=== PATIENT | male | born 1950 | race Caucasian/White ===

== ENCOUNTER 2017-10-27 14:00 | Inpatient (IN) | payer MEDICARE, OTHER, SELFPAY ==
[2017-10-27 15:26] VITALS: BMI 38.5
[2017-10-27 15:59] VITALS: BP 123/54; PULSE 53; RESP 18; TEMP 36.6; O2SAT 78
[2017-10-27 16:00] VITALS: O2SAT 95
[2017-10-27 16:17] LABS: Adenovirus,PCR Not Detected (NotDetected); Bordetella Pertussis Not Detected (NotDetected); Chlamydophila Pneumoniae, PCR Not Detected (NotDetected); Coronavirus 229E Not Detected (NotDetected); Coronavirus NL63 Not Detected (NotDetected); Coronavirus OC43 Not Detected (NotDetected); Coronovirus HKU1,PCR Not Detected (NotDetected); Human Metapneumovirus Not Detected (NotDetected); Influenza A, PCR Not Detected (NotDetected); Influenza AH1, 2009 Not Detected (NotDetected); Influenza AH1, PCR Not Detected (NotDetected); Influenza AH3,PCR Not Detected (NotDetected); Influenza B, PCR Not Detected (NotDetected); Mycoplasma Pneumoniae, PCR Not Detected (NotDected); Parainfluenza 1, PCR Not Detected (NotDetected); Parainfluenza 2, PCR Not Detected (NotDetected); Parainfluenza 3, PCR Not Detected (NotDetected); Parainfluenza 4, PCR Not Detected (NotDetected); Respiratory Syncytial Virus Not Detected (NotDetected); Rhinovirus/Enterovirus Not Detected (NotDetected)
--- NOTE | 2017-10-27 16:34 | HMH.HP ---
*Admission Date: 10/27/17 *Chief complaint: Shortness of breath *History of present illness: 67-year-old male with history of coronary artery disease, diabetes, hypertension, hyperlipidemia, COPD presented to to my office today with 4 days of shortness of breath with cough. Patient had actually been seen at an outside urgent treatment clinic 48 hours prior and diagnosed with right-sided pneumonia and started on Levaquin. Patient tells me that at that time he had oxygen saturations in the mid 70s. He denies fevers or chills. He was noted to have gained about 9 pounds since his last visit 1 month ago. His cough is productive of small amounts of yellow sputum. He admits he did not really feel ill just short of breath. He denies significant orthopnea or swelling in the extremities. Due to patient's persistent hypoxia, as in the office he was satting in the 70s, patient was admitted for IV antibiotics and oxygen support. Patient does normally use oxygen at night as he is unable to tolerate CPAP for sleep apnea. He does not use oxygen during the day [facility] History Medical History: Reports:: Chronic Obstructive Pulmonary Disease (COPD), Coronary Artery Disease, Diabetes Mellitus Type 2, Hyperlipidemia, Hypertension, Myocardial Infarction Denies:: Cancer, Diabetes Mellitus Type 1, MRSA Other Medical History: Reports: Arthritis Other Surgeries: Yes: ColonoscopyComment Only: Other (back surgery x 4) Amputation: No Fractures: No - *Social History Educational Level: Completed High School Smoking Status: Former smoker Tobacco Type: cigarettes Alcohol Intake: never Occupational Status: retired Housing: house Household Members: spouse - Psychiatric History Expresses thoughts of harming self/others: None Suicide Plan Description: No Plan *Family Hx:: Coronary Artery Disease, Diabetes, Heart Attack, Hyperlipidemia, Hypertension, Stroke Review of Systems - Review of Systems Review of systems:: pertinent systems reviewed and negative unless documented below See HPI - Constitutional Reports weight gain - *Cardiovascular Reports shortness of breath, Denies chest pain, Denies chest pain at rest, Denies chest pain with activity, Denies excessive sweating, Denies irregular heart rhythm, Denies leg swelling - *Respiratory Reports change in phlegm color, Reports cough, Reports shortness of breath, Reports shortness of breath with activity Meds Home Medications Medication Instructions Recorded Confirmed Type Aspirin [Adult Low Dose Aspirin EC] 81 mg PO DAILY 10/27/17 10/27/17 History Carvedilol [Carvedilol 25mg Tab] 25 mg PO DAILY 10/27/17 10/27/17 History Digoxin [Digitek] 125 mcg PO DAILY 10/27/17 10/27/17 History Glimepiride 4 mg PO BID 10/27/17 10/27/17 History Isosorbide Mononitrate [Imdur 30mg 30 mg PO DAILY 10/27/17 10/27/17 History ER tablet] Lisinopril [Lisinopril 20mg Tab] 20 mg PO DAILY 10/27/17 10/27/17 History Potassium Chloride [Klor-Con 10mEq 10 meq PO DAILY 10/27/17 10/27/17 History tab] Rosuvastatin Calcium 10 mg PO DAILY 10/27/17 10/27/17 History Salmeterol Xinafoate [Serevent 50 mcg IH BID 10/27/17 10/27/17 History Diskus] Sitagliptin Phosphate [Januvia 50 mg PO DAILY 10/27/17 10/27/17 History 50mg Tablet] Allergies Allergy/AdvReac Type Severity Reaction Status Date / Time No Known Allergies Allergy Verified 10/27/17 15:27 Exam Vital signs and Labs for Last 24 Hours: Temp Pulse Resp BP Pulse Ox 97.9 F 53 L 18 123/54 95 10/27/17 15:59 10/27/17 15:59 10/27/17 15:59 10/27/17 15:59 10/27/17 16:00 Narrative: Patient does not appear to be in any respiratory distress and appears comfortable. HEENT exam reveals normal tympanic membranes and a moist oropharynx. Neck is without lymphadenopathy. Lungs have rales in the right posterior and right anterior midlung. Heart has a regular rate and rhythm. Abdomen is soft, nontender, nondistended. Bowel sounds are active. Abdom
--- NOTE | 2017-10-27 16:37 | P.HP_ITS ---
*Admission Date: 10/27/17 *Chief complaint: Shortness of breath *History of present illness: 67-year-old male with history of coronary artery disease, diabetes, hypertension , hyperlipidemia, COPD presented to to my office today with 4 days of shortness of breath with cough. Patient had actually been seen at an outside urgent treatment clinic 48 hours prior and diagnosed with right-sided pneumonia and started on Levaquin. Patient tells me that at that time he had oxygen saturations in the mid 70s. He denies fevers or chills. He was noted to have gained about 9 pounds since his last visit 1 month ago. His cough is productive of small amounts of yellow sputum. He admits he did not really feel ill just short of breath. He denies significant orthopnea or swelling in the extremities. Due to patient's persistent hypoxia, as in the office he was satting in the 70s, patient was admitted for IV antibiotics and oxygen support. Patient does normally use oxygen at night as he is unable to tolerate CPAP for sleep apnea. He does not use oxygen during the day [facility] History Medical History: Reports:: Chronic Obstructive Pulmonary Disease (COPD), Coronary Artery Disease, Diabetes Mellitus Type 2, Hyperlipidemia, Hypertension , Myocardial Infarction Denies:: Cancer, Diabetes Mellitus Type 1, MRSA Other Medical History: Reports: Arthritis Other Surgeries: Yes: ColonoscopyComment Only: Other (back surgery x 4) Amputation: No Fractures: No - *Social History Educational Level: Completed High School Smoking Status: Former smoker Tobacco Type: cigarettes Alcohol Intake: never Occupational Status: retired Housing: house Household Members: spouse - Psychiatric History Expresses thoughts of harming self/others: None Suicide Plan Description: No Plan *Family Hx:: Coronary Artery Disease, Diabetes, Heart Attack, Hyperlipidemia, Hypertension, Stroke Review of Systems - Review of Systems Review of systems:: pertinent systems reviewed and negative unless documented below See HPI - Constitutional Reports weight gain - *Cardiovascular Reports shortness of breath, Denies chest pain, Denies chest pain at rest, Denies chest pain with activity, Denies excessive sweating, Denies irregular heart rhythm, Denies leg swelling - *Respiratory Reports change in phlegm color, Reports cough, Reports shortness of breath, Reports shortness of breath with activity Meds Home Medications Medication Instructions Recorded Confirmed Type Aspirin [Adult Low Dose Aspirin EC] 81 mg PO DAILY 10/27/17 10/27/17 History Carvedilol [Carvedilol 25mg Tab] 25 mg PO DAILY 10/27/17 10/27/17 History Digoxin [Digitek] 125 mcg PO DAILY 10/27/17 10/27/17 History Glimepiride 4 mg PO BID 10/27/17 10/27/17 History Isosorbide Mononitrate [Imdur 30mg 30 mg PO DAILY 10/27/17 10/27/17 History ER tablet] Lisinopril [Lisinopril 20mg Tab] 20 mg PO DAILY 10/27/17 10/27/17 History Potassium Chloride [Klor-Con 10mEq 10 meq PO DAILY 10/27/17 10/27/17 History tab] Rosuvastatin Calcium 10 mg PO DAILY 10/27/17 10/27/17 History Salmeterol Xinafoate [Serevent 50 mcg IH BID 10/27/17 10/27/17 History Diskus] Sitagliptin Phosphate [Januvia 50 mg PO DAILY 10/27/17 10/27/17 History 50mg Tablet] Allergies Allergy/AdvReac Type Severity Reaction Status Date / Time No Known Allergies Allergy Verified 10/27/17 15:27 Exam Vital signs and Labs for Last 24 Hours: Temp Pulse
--- NOTE | 2017-10-27 16:47 | P.CONPHA_ITS ---
- Pharmacy Consult Date: 10/27/17 Time: 16:46 Referring provider: DR. WILSON Reason for Consult:: GENTAMICIN DOSING Allergies and ADEs:: Allergies Allergy/AdvReac Type Severity Reaction Status Date / Time No Known Allergies Allergy Verified 10/27/17 15:27 Home Medications:: Home Medications Medication Instructions Recorded Confirmed Type Aspirin [Adult Low Dose Aspirin EC] 81 mg PO DAILY 10/27/17 10/27/17 History Carvedilol [Carvedilol 25mg Tab] 25 mg PO DAILY 10/27/17 10/27/17 History Digoxin [Digitek] 125 mcg PO DAILY 10/27/17 10/27/17 History Glimepiride 4 mg PO BID 10/27/17 10/27/17 History Isosorbide Mononitrate [Imdur 30mg 30 mg PO DAILY 10/27/17 10/27/17 History ER tablet] Lisinopril [Lisinopril 20mg Tab] 20 mg PO DAILY 10/27/17 10/27/17 History Potassium Chloride [Klor-Con 10mEq 10 meq PO DAILY 10/27/17 10/27/17 History tab] Rosuvastatin Calcium 10 mg PO DAILY 10/27/17 10/27/17 History Salmeterol Xinafoate [Serevent 50 mcg IH BID 10/27/17 10/27/17 History Diskus] Sitagliptin Phosphate [Januvia 50 mg PO DAILY 10/27/17 10/27/17 History 50mg Tablet] Height: 1.75 m Weight: 118.558 kg Laboratory Results:: NONE Medical History: Reports:: Chronic Obstructive Pulmonary Disease (COPD), Coronary Artery Disease, Diabetes Mellitus Type 2, Hyperlipidemia, Hypertension , Myocardial Infarction Denies:: Cancer, Diabetes Mellitus Type 1, MRSA Assessment and Plan - Assessment and plan all Dx Assessment and Plan for all problems:: BASED ON PATIENT'S FACTORS, RECOMMEND STARTING WITH GENTAMICIN 440 MG Q24H AT THIS TIME. PHARMACY WILL FOLLOW DAILY AND ADJUST APPROPRIATE. HUAN ADLER, PHARMD
[2017-10-27 17:29] LABS: Mycoplasma Pneumo IGM (Rapid) Non-Reactive (Non-Reactiv)
[2017-10-27 17:48] LABS: Digoxin 0.86 ng/mL (1.15-2.56)
--- NOTE | 2017-10-27 19:07 | PC.NURSE ---
PATIENT ADMITTED TODAY A DIRECT ADMIT FROM OFFICE. PATIENT WAS ADMITTED WITH PNEUMONIA , APPLIED 2L OF O2 WHEN ARRIVED TO UNIT STATING IN THE 80'S. LUNG SOUNDS ARE WHEEZES T/O. VITAL SIGNS ARE STABLE, FAMILY AT BEDSIDE. CALL VIEYRA IN REACH, NO DISTRESS NOTED, WILL CONTINUE TO MONITOR.
[2017-10-27 19:51] VITALS: BP 130/61; PULSE 57; RESP 20; TEMP 36.8; O2SAT 90
[2017-10-27 20:00] VITALS: PULSE 57; O2SAT 90
[2017-10-27 22:25] LABS: Gentamicin,Random 9.4 ug/mL (4.0-10.0)
[2017-10-27 23:47] VITALS: BP 119/45; PULSE 88; RESP 22; TEMP 36.7; O2SAT 91
[2017-10-28] VITALS (8 sets, daily range): BP systolic 117–138; BP diastolic 52–66; PULSE 58–61; RESP 18–20; TEMP 36.7–36.9; O2SAT 89–96
--- NOTE | 2017-10-28 04:54 | PC.NURSE ---
NO ACUTE CHANGES NOTED. PT HAS C/O SOA THIS SHIFT. HE IS CURRENTLY ON 3L NC @ 91%. LUNGS ARE DIMINISHED WITH CRACKLES NOTED TO BASES. TRACE EDEMA WAS NOTED TO BLE. VSS. MEDICATIONS ADMINISTERED PER MAR. NO OTHER CONCERNS AT THIS TIME. WILL CONTINUE TO MONITOR
--- NOTE | 2017-10-28 06:36 | PC.NURSE ---
pt wanted to waut til after breakfast for a bath. nurse notified
[2017-10-28 06:52] LABS: Basophils % 0.5 % (0.1-2.0); Eosinophils # 0.4 K/mm3 (0.0-0.4); Eosinophils % 7.5 % (0.1-12.0); Hematocrit 32.9 % (42.0-52.0); Hemoglobin 10.6 g/dL (14.1-18.0); Lymphocytes # 1.1 K/mm3 (0.7-4.5); Lymphocytes % 18.2 K/mm3 (10-50); Mean Corpuscular HGB Conc 32.3 g/dL (31.8-35.4); Mean Corpuscular Hemoglobin 29.7 pg (27.0-31.2); Mean Corpuscular Volume 91.7 fl (80-94); Mean Platelet Volume 8.3 fl (7.4-10.4); Monocytes # 0.3 K/mm3 (0.1-1.0); Monocytes % 4.8 % (1.7-9.3); Neutrophils # 4.1 K/mm3 (1.8-7.8); Neutrophils % 69.1 % (37.0-80.0); Platelet Count 146 K/mm3 (142-424); Red Blood Count 3.59 M/mm3 (4.60-6.20); Red Cell Distribution Width 16.2 % (11.5-17.5); White Blood Count 5.9 K/mm3 (4.8-10.8)
[2017-10-28 07:05] LABS: Blood Urea Nitrogen 17 mg/dL (7-18); Chloride 107 mmol/L (98-107); Creatinine,Serum 1.39 mg/dL (0.70-1.30); Estimated Glomerular Filt Rate 51 ml/min (>60); GFR (African American) 62 ML/MIN (>60); Glucose 80 mg/dL (74-106); Potassium 5.3 mmoL/L (3.5-5.1); Sodium 146 mmol/L (136-145)
--- NOTE | 2017-10-28 07:08 | P.PN_ITS ---
Internal Medicine - PN: Subj *Date: 10/28/17 *Time: 07:06 Interval history: Patient states he is already feeling like he is breathing easier. He did not sleep well due to frequent visits throughout the night from staff. He is ready to get out of bed. Exam Vital signs and Labs for Last 24 Hours: Temp Pulse Resp BP Pulse Ox 98.2 F 60 20 117/52 91 L 10/28/17 03:59 10/28/17 03:59 10/28/17 03:59 10/28/17 03:59 10/28/17 03:59 Laboratory Results - last 24 hr 10/27/17 15:52: Mycoplasma pneumon IgM Non-reactive 10/27/17 15:52: Digoxin 0.86 L 10/27/17 16:10: Chlamy pneumoniae PCR Not detected, Adenovirus (PCR) Not detected, B.parapertussis DNA PCR Not detected, Coronavirus OC43 (PCR) Not detected, Coronavirus HKU1 (PCR) Not detected, Coronavirus 229E (PCR) Not detected, Coronavirus NL63 (PCR) Not detected, Human Metapneumovir PCR Not detected, Influenza A (H1) PCR Not detected, Influ A (H1N1/09) PCR Not detected , Influenza A (H3) PCR Not detected, Influenza Type A (PCR) Not detected, Influenza Type B (PCR) Not detected, M. pneumoniae (PCR) Not detected, Parainfluenza 1 (PCR) Not detected, Parainfluenza 2 (PCR) Not detected, Parainfluenza 3 (PCR) Not detected, Parainfluenza 4 (PCR) Not detected, RSV (PCR ) Not detected, Entero/Rhino (PCR) Not detected 10/27/17 22:00: Random Gentamicin 9.4 I & O for Last 24 hours: Intake & Output 10/25/17 10/26/17 10/27/17 10/28/17 11:59 11:59 11:59 11:59 Intake Total 420 / 420 Output Total 200 / 200 Balance 220 / 220 Narrative: He is resting with nasal cannula in place. Heart is a regular rate and rhythm. Lungs continue to have rales in the right midlung heard posteriorly in laterally Assessment and Plan (1) Pneumonia Current visit: Yes Status: Acute Category: Medical Code(s): J18.9 - Pneumonia, unspecified organism (2) COPD (chronic obstructive pulmonary disease) Current visit: Yes Status: Chronic Category: Medical Code(s): J44.9 - Chronic obstructive pulmonary disease, unspecified (3) Coronary artery disease Current visit: Yes Status: Chronic Category: Medical Code(s): I25.10 - Atherosclerotic heart disease of [place] coronary artery without angina pectoris (4) Diabetes mellitus type II, controlled Current visit: Yes Status: Chronic Qualifiers: Diabetes mellitus complication status: without complication Diabetes mellitus detention insulin use: without detention use Qualified Code(s): E11.9 - Type 2 diabetes mellitus without complications Category: Medical Code(s): E11.9 - Type 2 diabetes mellitus without complications (5) Hypertension Current visit: Yes Status: Chronic Category: Medical Code(s): I10 - Essential (primary) hypertension (6) Hyperlipidemia Current visit: Yes Status: Chronic Category: Medical Code(s): E78.5 - Hyperlipidemia, unspecified - Assessment and plan all Dx Assessment and Plan for all problems:: Continue broad-spectrum antibiotic coverage. He has produced sputum this morning we will see if that is adequate for testing. BNP has been added to his morning labs. If significantly elevated will check echocardiogram and repeat chest x-ray
[2017-10-28 07:43] LABS: Anion Gap 11.3 mEq/L (5-15); Carbon Dioxide 33 mmol/L (21.0-32.0)
--- NOTE | 2017-10-28 07:53 | PC.NURSE ---
REPORT HANDOFF TO HARRISON
[2017-10-28 07:58] LABS: Creatinine Clearance Estimated 87 mL/min (0-300)
--- NOTE | 2017-10-28 09:09 | HMH.PHACONS ---
- Pharmacy Consult Date: 10/28/17 Time: 09:09 Referring provider: DR. WILSON Reason for Consult:: GENTAMICIN LEVELS Allergies and ADEs:: Allergies Allergy/AdvReac Type Severity Reaction Status Date / Time No Known Allergies Allergy Verified 10/27/17 15:27 Home Medications:: Home Medications Medication Instructions Recorded Confirmed Type Aspirin [Adult Low Dose Aspirin EC] 81 mg PO DAILY 10/27/17 10/27/17 History Carvedilol [Carvedilol 25mg Tab] 25 mg PO DAILY 10/27/17 10/27/17 History Digoxin [Digitek] 125 mcg PO DAILY 10/27/17 10/27/17 History Glimepiride 4 mg PO BID 10/27/17 10/27/17 History Isosorbide Mononitrate [Imdur 30mg 30 mg PO DAILY 10/27/17 10/27/17 History ER tablet] Lisinopril [Lisinopril 20mg Tab] 20 mg PO DAILY 10/27/17 10/27/17 History Potassium Chloride [Klor-Con 10mEq 10 meq PO DAILY 10/27/17 10/27/17 History tab] Rosuvastatin Calcium 10 mg PO DAILY 10/27/17 10/27/17 History Salmeterol Xinafoate [Serevent 50 mcg IH BID 10/27/17 10/27/17 History Diskus] Sitagliptin Phosphate [Januvia 50 mg PO DAILY 10/27/17 10/27/17 History 50mg Tablet] Height: 1.75 m Weight: 115.808 kg Laboratory Results:: Laboratory Results - last 24 hr 10/27/17 15:52: Mycoplasma pneumon IgM Non-reactive 10/27/17 15:52: Digoxin 0.86 L 10/27/17 16:10: Chlamy pneumoniae PCR Not detected, Adenovirus (PCR) Not detected, B.parapertussis DNA PCR Not detected, Coronavirus OC43 (PCR) Not detected, Coronavirus HKU1 (PCR) Not detected, Coronavirus 229E (PCR) Not detected, Coronavirus NL63 (PCR) Not detected, Human Metapneumovir PCR Not detected, Influenza A (H1) PCR Not detected, Influ A (H1N1/09) PCR Not detected, Influenza A (H3) PCR Not detected, Influenza Type A (PCR) Not detected, Influenza Type B (PCR) Not detected, M. pneumoniae (PCR) Not detected, Parainfluenza 1 (PCR) Not detected, Parainfluenza 2 (PCR) Not detected, Parainfluenza 3 (PCR) Not detected, Parainfluenza 4 (PCR) Not detected, RSV (PCR) Not detected, Entero/Rhino (PCR) Not detected 10/27/17 22:00: Random Gentamicin 9.4 10/28/17 06:25: Random Gentamicin 4.0 10/28/17 06:25: WBC 5.9, RBC 3.59 L, Hgb 10.6 L, Hct 32.9 L, MCV 91.7, MCH 29.7, MCHC 32.3, RDW 16.2, Plt Count 146, MPV 8.3, Neut % (Auto) 69.1, Lymph % (Auto) 18.2, Saline % (Auto) 4.8, Eos % (Auto) 7.5, Baso % (Auto) 0.5, Neut # (Auto) 4.1, Lymph # (Auto) 1.1, Saline # (Auto) 0.3, Eos # (Auto) 0.4, Baso # (Auto) 0.0 10/28/17 06:25: Sodium 146 H, Potassium 5.3 H, Chloride 107, Carbon Dioxide 33 H, Anion Gap 11.3, BUN 17, Creatinine 1.39 H, Estimated Creat Clear 87, Estimated GFR 51 L, Est GFR ( Amer) 62, Glucose 80 10/28/17 06:32: B-Natriuretic Peptide 787 H Medical History: Reports:: Chronic Obstructive Pulmonary Disease (COPD), Coronary Artery Disease, Diabetes Mellitus Type 2, Hyperlipidemia, Hypertension, Myocardial Infarction Denies:: Cancer, Diabetes Mellitus Type 1, MRSA Assessment and Plan - Assessment and plan all Dx Assessment and Plan for all problems:: BASED ON PATIENT'S 3.5 HR AND 11 HR LEVELS, CALCULATED GENTAMICIN CMAX OF 12.5 MCG/ML AND CMIN OF 0.91 MCG/ML. RECOMMEND CONTINUING WITH CURRENT DOSE OF GENTAMICIN 440 MG Q24H AT THIS TIME. PHARMACY WILL FOLLOW DAILY AND ADJUST APPROPRIATE. HUAN ADLER, MIKAYLAD
--- NOTE | 2017-10-28 09:18 | P.CONPHA_ITS ---
- Pharmacy Consult Date: 10/28/17 Time: 09:09 Referring provider: DR. WILSON Reason for Consult:: GENTAMICIN LEVELS Allergies and ADEs:: Allergies Allergy/AdvReac Type Severity Reaction Status Date / Time No Known Allergies Allergy Verified 10/27/17 15:27 Home Medications:: Home Medications Medication Instructions Recorded Confirmed Type Aspirin [Adult Low Dose Aspirin EC] 81 mg PO DAILY 10/27/17 10/27/17 History Carvedilol [Carvedilol 25mg Tab] 25 mg PO DAILY 10/27/17 10/27/17 History Digoxin [Digitek] 125 mcg PO DAILY 10/27/17 10/27/17 History Glimepiride 4 mg PO BID 10/27/17 10/27/17 History Isosorbide Mononitrate [Imdur 30mg 30 mg PO DAILY 10/27/17 10/27/17 History ER tablet] Lisinopril [Lisinopril 20mg Tab] 20 mg PO DAILY 10/27/17 10/27/17 History Potassium Chloride [Klor-Con 10mEq 10 meq PO DAILY 10/27/17 10/27/17 History tab] Rosuvastatin Calcium 10 mg PO DAILY 10/27/17 10/27/17 History Salmeterol Xinafoate [Serevent 50 mcg IH BID 10/27/17 10/27/17 History Diskus] Sitagliptin Phosphate [Januvia 50 mg PO DAILY 10/27/17 10/27/17 History 50mg Tablet] Height: 1.75 m Weight: 115.808 kg Laboratory Results:: Laboratory Results - last 24 hr 10/27/17 15:52: Mycoplasma pneumon IgM Non-reactive 10/27/17 15:52: Digoxin 0.86 L 10/27/17 16:10: Chlamy pneumoniae PCR Not detected, Adenovirus (PCR) Not detected, B.parapertussis DNA PCR Not detected, Coronavirus OC43 (PCR) Not detected, Coronavirus HKU1 (PCR) Not detected, Coronavirus 229E (PCR) Not detected, Coronavirus NL63 (PCR) Not detected, Human Metapneumovir PCR Not detected, Influenza A (H1) PCR Not detected, Influ A (H1N1/09) PCR Not detected , Influenza A (H3) PCR Not detected, Influenza Type A (PCR) Not detected, Influenza Type B (PCR) Not detected, M. pneumoniae (PCR) Not detected, Parainfluenza 1 (PCR) Not detected, Parainfluenza 2 (PCR) Not detected, Parainfluenza 3 (PCR) Not detected, Parainfluenza 4 (PCR) Not detected, RSV (PCR ) Not detected, Entero/Rhino (PCR) Not detected 10/27/17 22:00: Random Gentamicin 9.4 10/28/17 06:25: Random Gentamicin 4.0 10/28/17 06:25: WBC 5.9, RBC 3.59 L, Hgb 10.6 L, Hct 32.9 L, MCV 91.7, MCH 29.7 , MCHC 32.3, RDW 16.2, Plt Count 146, MPV 8.3, Neut % (Auto) 69.1, Lymph % (Auto ) 18.2, [place] % (Auto) 4.8, Eos % (Auto) 7.5, Baso % (Auto) 0.5, Neut # (Auto) 4.1, Lymph # (Auto) 1.1, [place] # (Auto) 0.3, Eos # (Auto) 0.4, Baso # (Auto) 0.0 10/28/17 06:25: Sodium 146 H, Potassium 5.3 H, Chloride 107, Carbon Dioxide 33 H , Anion Gap 11.3, BUN 17, Creatinine 1.39 H, Estimated Creat Clear 87, Estimated GFR 51 L, Est GFR ( Amer) 62, Glucose 80 10/28/17 06:32: B-Natriuretic Peptide 787 H Medical History: Reports:: Chronic Obstructive Pulmonary Disease (COPD), Coronary Artery Disease, Diabetes Mellitus Type 2, Hyperlipidemia, Hypertension , Myocardial Infarction Denies:: Cancer, Diabetes Mellitus Type 1, MRSA Assessment and Plan - Assessment and plan all Dx Assessment and Plan for all problems:: BASED ON PATIENT'S 3.5 HR AND 11 HR LEVELS, CALCULATED GENTAMICIN CMAX OF 12.5 MCG/ML AND CMIN OF 0.91 MCG/ML. RECOMMEND CONTINUING WITH CURRENT DOSE OF GENTAMICIN 440 MG Q24H AT THIS TIME. PHARMACY WILL FOLLOW DAILY AND ADJUST APPROPRIATE. HUAN ADLER, MIKAYLAD
--- NOTE | 2017-10-28 12:00 | HMH.PHAVTE ---
[facility] Pharmacy VTE Monitoring - Patient Demographics Admission date: 10/27/17 Report Date: 10/28/17 Time: 12:00 Allergies/Adverse Reactions: No Known Allergies Allergy (Verified 10/27/17 15:27) Height: 1.75 m Weight: 115.808 kg Patient Problems: Current Active Problems Pneumonia (Acute) COPD (chronic obstructive pulmonary disease) (Chronic) Coronary artery disease (Chronic) Diabetes mellitus type II, controlled (Chronic) Hypertension (Chronic) Hyperlipidemia (Chronic) - VTE Risk Labs: VTE Related Lab Results Hgb 10.6 g/dL (14.1-18.0) L 10/28/17 06:25 Hct 32.9 % (42.0-52.0) L 10/28/17 06:25 Plt Count 146 K/mm3 (142-424) 10/28/17 06:25 BUN 17 mg/dL (7-18) 10/28/17 06:25 Creatinine 1.39 mg/dL (0.70-1.30) H 10/28/17 06:25 Estimated Creat Clear 87 mL/min (0-300) 10/28/17 06:25 Was VTE Risk Assessment Performed: No VTE Score: 3 VTE Risk Level: Low Risk Clinical Trial Participant: No - Prophylaxis VTE Prophylaxis Ordered?: Yes Types of VTE Prophylaxis: TEDS Knee High
--- NOTE | 2017-10-28 18:57 | PC.NURSE ---
PATIENT IS SITTING UP AT BEDSIDE AT THIS TIME. PATIENT GETTING MULTIPLE ANTIBOTICS. NO CHANGES FROM LAST SHIFT. WILL CONTINUE TO MONITOR.
[2017-10-29] VITALS (8 sets, daily range): BP systolic 125–144; BP diastolic 59–72; PULSE 58–71; RESP 18–20; TEMP 36.6–36.9; O2SAT 90–94; BMI 37.7
--- NOTE | 2017-10-29 05:42 | PC.NURSE ---
NO ACUTE CHANGES NOTED. PT STATES THAT HE IS FEELING BETTER. DENIES ANY SOA. HE CONTINUES TO REMAIN ON 3L O2 NC. MEDICATIONS ADMINISTERED PER MAR. VSS. NO OTHER CONCERNS AT THIS TIME. WILL CONTINUE TO MONITOR.
--- NOTE | 2017-10-29 06:06 | CA_ITS ---
PROCEDURE: 2-D M-mode and color Doppler study INDICATIONS FOR THE TEST: Chest pain COPD+ Heart Murmur Tobacco Smoking Palpitations Fatigue Syncope Edema+ Hypertension+Diabetes Mellitus+ Rheumatic Fever SOB+SEGURA Obesity+Hyperlipidemia+ Family History HD Additional History CABG, STENTS, CHF PATIENT INFORMATION HEIGHT: 69 WEIGHT:255 GENDER: Male B/P:117/52 2-D/M-MODE INTERPRETATION: 2-D MEASUREMENTS OBSERVED VALUES IN CMS Right Ventricular Dimension (RVDd) 4.3 Interventricular Septum (Thickness)(IVsd) 1.3 Left Ventricular Internal Dimensions(LVIDd) 5.5 Left Ventricular Posterior Wall (Thickness)(LVPWd) 0.8 Aort 2.0 Left Atrial Dimensions (LAD) 5.4 2D 1. Left atrium is moderately enlarged, left ventricle is normal size, there is no concentric left ventricular hypertrophy, visually estimated ejection fraction of 50-55%, there is abnormal septal motion. 2. The right atrium and right ventricle are moderately enlarged, contractility of the right ventricle appears to be preserved 3. The aortic valve is minimally thickened and fibrosed. 4. The mitral and tricuspid valve leaflets are minimally thickened. 5. The pulmonic valve is poorly visualized. 6. No significant pericardial effusion noted. DOPPLER INTERROGATION: Doppler interrogation of the aortic, mitral and tricuspid valves reveals presence of mild mitral and tricuspid regurgitation, tricuspid and jet velocity insufficient for calculation of the right ventricular systolic pressure, diastolic parameters are inconclusive. CONCLUSION: 1. Technically difficult study because of the patient's factor and poor acoustic windows. 2. Moderately enlarged left atrium, normal left ventricular size, visually estimated ejection fraction of 50-55% there is abnormal septal motion. Diastolic parameters are inconclusive 3. Moderately enlarged right ventricle with normal contractility. 4. Mild mitral and tricuspid regurgitation. 5. No significant pericardial effusion noted.
[2017-10-29 07:05] LABS: Anion Gap 8.4 mEq/L (5-15); Blood Urea Nitrogen 18 mg/dL (7-18); Carbon Dioxide 35 mmol/L (21.0-32.0); Chloride 108 mmol/L (98-107); Creatinine Clearance Estimated 79 mL/min (0-300); Creatinine,Serum 1.52 mg/dL (0.70-1.30); Estimated Glomerular Filt Rate 46 ml/min (>60); GFR (African American) 56 ML/MIN (>60); Glucose 73 mg/dL (74-106); Potassium 5.4 mmoL/L (3.5-5.1); Sodium 146 mmol/L (136-145)
--- NOTE | 2017-10-29 07:51 | PC.NURSE ---
PT REPORT HANDOFF TO DARSHANA MCGILL
--- NOTE | 2017-10-29 08:00 | XR_ITS ---
XR chest 2V Ordering Physician: Crispin Quintero MD Patient Age: 67 years: Male HISTORY: ITS.REASON: pneumonia progress studydyspnea TECHNIQUE: PA and lateral chest COMPARISON :2 view chest 11/02/2013 and portable chest 02/24/2011 FINDINGS Diffuse interstitial infiltrate appears to be evident superimposed upon chronic changes. This accentuated interstitial pattern most evident at the right midlung right base and to lesser degree the left left lung base. Markings most evident the right mid and lower right lung Although this may reflect a a subtle relative diffuse interstitial infiltrate & pneumonitis, cannot exclude mild vascular congestion contributing to this overall pattern & picture. There is Some trace fluid along fissures., With mild blunting left CP angle noted which may reflect reflect a small left pleural effusion. Versus mild chronic pleural changes at left CP angle. The previous sternotomy, CABG. Mild cardiomegaly also noted . Chest wall unremarkablePrevious anterior fusion lower C-spine. Laila and mediastinal structures unremarkable. IMPRESSION: -- Suggestion Subtle interstitial infiltrate, most evident right mid and lower chest also question towards left base,-.. Subtle interstitial infiltrate appears superimposed upon mild chronic changes Although this may reflect a mild pneumonitis cannot exclude a vascular congestion as a contributor with overall appearance.. Scant trace fluid outlines the fissures and blunting left CP angle may reflect scant pleural effusions., With Mild cardiomegaly and mild-engorgement
--- NOTE | 2017-10-29 08:01 | PC.NURSE ---
REPORT FROM Pete GALARZA RN THIS AM
--- NOTE | 2017-10-29 08:17 | P.PN_ITS ---
Internal Medicine - PN: Subj *Date: 10/29/17 *Time: 08:15 Interval history: Patient has no complaints this morning. He continues to cough. He is already had an echocardiogram this morning and states he felt short of breath after the test was complete. X-ray is pending but has not been performed yet. Exam Vital signs and Labs for Last 24 Hours: Temp Pulse Resp BP Pulse Ox 97.9 F 64 20 127/65 92 L 10/29/17 04:10 10/29/17 04:10 10/29/17 04:10 10/29/17 04:10 10/29/17 04:10 Laboratory Results - last 24 hr 10/28/17 06:25: Random Gentamicin 4.0 10/28/17 06:32: B-Natriuretic Peptide 787 H 10/29/17 06:40: Sodium 146 H, Potassium 5.4 H, Chloride 108 H, Carbon Dioxide 35 H, Anion Gap 8.4, BUN 18, Creatinine 1.52 H, Estimated Creat Clear 79, Estimated GFR 46 L, Est GFR ( Amer) 56 L, Glucose 73 L I & O for Last 24 hours: Intake & Output 10/26/17 10/27/17 10/28/17 10/29/17 11:59 11:59 11:59 11:59 Intake Total 900 / 900 800 / 800 Output Total 200 / 200 Balance 700 / 700 800 / 800 Narrative: He looks well. Nasal cannula is in place. Lungs continue to have rales in the right midlung best heard posteriorly and laterally. Heart has a regular rate and rhythm. Assessment and Plan (1) Pneumonia Current visit: Yes Status: Acute Category: Medical Code(s): J18.9 - Pneumonia, unspecified organism (2) COPD (chronic obstructive pulmonary disease) Current visit: Yes Status: Chronic Category: Medical Code(s): J44.9 - Chronic obstructive pulmonary disease, unspecified (3) Coronary artery disease Current visit: Yes Status: Chronic Category: Medical Code(s): I25.10 - Atherosclerotic heart disease of [place] coronary artery without angina pectoris (4) Diabetes mellitus type II, controlled Current visit: Yes Status: Chronic Qualifiers: Diabetes mellitus complication status: without complication Diabetes mellitus group home insulin use: without group home use Qualified Code(s): E11.9 - Type 2 diabetes mellitus without complications Category: Medical Code(s): E11.9 - Type 2 diabetes mellitus without complications (5) Hypertension Current visit: Yes Status: Chronic Category: Medical Code(s): I10 - Essential (primary) hypertension (6) Hyperlipidemia Current visit: Yes Status: Chronic Category: Medical Code(s): E78.5 - Hyperlipidemia, unspecified - Assessment and plan all Dx Assessment and Plan for all problems:: 1. Await echo chest x-ray result 2. DC potassium supplementation 3. Continue broad-spectrum antibiotics 4. Await sputum culture 5. Repeat BMP in a.m.
--- NOTE | 2017-10-29 18:49 | PC.NURSE ---
PATIENT WAS ADMITTED ON 10/27 FOR PNEUMONIA. PATIENT HAS DONE WELL TODAY WITH NO COMPLAINTS OF PAIN OR DISCOMFORT. HE HAS TOLERATED ANTIBIOTICS WELL. HE CONTINUES TO HAVE SOME CRACKLES IN THE BASE. OXYGEN HAS BEEN DECREASED TO 2 LITERS PER NASAL CANULA AND OXYGEN LEVEL HAS REMAINED IN THE LOW 90'S. PATIENT WAS FOUND TO HAVE SOME FLUID WHEN CHEST X-RAY WAS COMPLETED AND LASIX GIVEN PER ORDER. HAS BEEN AT BEDSIDE ALL DAY. PATIENT HAS AMBULATED IN THE ROOM SEVERAL TIMES TODAY. WILL CONTINUE TO MONITOR. DARSHANA MCGILL, MSN, RN
[2017-10-30] VITALS (7 sets, daily range): BP systolic 119–151; BP diastolic 46–67; PULSE 60–72; RESP 18–20; TEMP 36.6–36.8; O2SAT 88–95
--- NOTE | 2017-10-30 04:39 | PC.NURSE ---
PATIENT SEEMS TO HAVE SLEPT WELL THIS SHIFT. NO ACUTE CHANGES. RESPIRATIONS EVEN AND UNLABORED. NO SOA OR DISTRESS NOTED. PATIENT CURRENTLY IN BED SLEEPING. NO OTHER PROBLEMS NOTED AT THIS TIME. VSS. WILL CONTINUE TO MONITOR. SAFETY MEASURES IN PLACE, CALL LIGHT IN REACH.
[2017-10-30 07:23] LABS: Anion Gap 5.8 mEq/L (5-15); Blood Urea Nitrogen 18 mg/dL (7-18); Carbon Dioxide 37 mmol/L (21.0-32.0); Chloride 106 mmol/L (98-107); Creatinine Clearance Estimated 76 mL/min (0-300); Creatinine,Serum 1.56 mg/dL (0.70-1.30); Estimated Glomerular Filt Rate 45 ml/min (>60); GFR (African American) 54 ML/MIN (>60); Glucose 51 mg/dL (74-106); Potassium 4.8 mmoL/L (3.5-5.1); Sodium 144 mmol/L (136-145)
--- NOTE | 2017-10-30 07:29 | HMH.ACPN ---
Internal Medicine - PN: Subj *Date: 10/30/17 *Time: 07:29 Interval history: Patient is without complaints this morning but he does feel like his dyspnea is improving. Yesterday chest x-ray was performed which was suggestive of some mild fluid overload and patient was given 40 mg of Lasix intravenously. Echocardiogram has been performed but is still pending Exam Vital signs and Labs for Last 24 Hours: Temp Pulse Resp BP Pulse Ox 97.9 F 60 20 119/46 89 L 10/30/17 04:15 10/30/17 04:15 10/30/17 04:15 10/30/17 04:15 10/30/17 06:56 I & O for Last 24 hours: Intake & Output 10/27/17 10/28/17 10/29/17 10/30/17 11:59 11:59 11:59 11:59 Intake Total 900 / 900 1040 / 1040 720 / 720 Output Total 200 / 200 Balance 700 / 700 1040 / 1040 720 / 720 Narrative: He is in no distress. Nasal cannula is in place. Lung exam has improvement in rales in the right midlung with fair aeration. Heart has regular rate and rhythm. Assessment and Plan (1) Pneumonia Current visit: Yes Status: Acute Category: Medical Code(s): J18.9 - Pneumonia, unspecified organism (2) COPD (chronic obstructive pulmonary disease) Current visit: Yes Status: Chronic Category: Medical Code(s): J44.9 - Chronic obstructive pulmonary disease, unspecified (3) Coronary artery disease Current visit: Yes Status: Chronic Category: Medical Code(s): I25.10 - Atherosclerotic heart disease of [place] coronary artery without angina pectoris (4) Diabetes mellitus type II, controlled Current visit: Yes Status: Chronic Qualifiers: Diabetes mellitus complication status: without complication Diabetes mellitus [employer] insulin use: without long-term use Qualified Code(s): E11.9 - Type 2 diabetes mellitus without complications Category: Medical Code(s): E11.9 - Type 2 diabetes mellitus without complications (5) Hypertension Current visit: Yes Status: Chronic Category: Medical Code(s): I10 - Essential (primary) hypertension (6) Hyperlipidemia Current visit: Yes Status: Chronic Category: Medical Code(s): E78.5 - Hyperlipidemia, unspecified - Assessment and plan all Dx Assessment and Plan for all problems:: Await echocardiogram result. Patient seems to have benefited from Lasix which Wolfgang's his pneumonia diagnosis into question and perhaps he is simply been mildly volume overloaded. He will be given more Lasix today. Sputum culture is pending. Rule out diastolic dysfunction with echocardiogram. Anticipate discharge later this evening if no significant change in labs and he does not require further cardiac intervention
--- NOTE | 2017-10-30 08:18 | HMH.ACPN ---
Internal Medicine - PN: Subj *Date: 10/30/17 *Time: 08:18 Exam Vital signs and Labs for Last 24 Hours: Temp Pulse Resp BP Pulse Ox 97.9 F 60 20 119/46 89 L 10/30/17 04:15 10/30/17 04:15 10/30/17 04:10/30/17 04:15 10/30/17 06:56 Laboratory Results - last 24 hr 10/30/17 06:45: Sodium 144, Potassium 4.8, Chloride 106, Carbon Dioxide 37 H, Anion Gap 5.8, BUN 18, Creatinine 1.56 H, Estimated Creat Clear 76, Estimated GFR 45 L, Est GFR ( Amer) 54 L, Glucose 51 L I & O for Last 24 hours: Intake & Output 10/27/17 10/28/17 10/29/17 10/30/17 23:59 23:59 23:59 23:59 Intake Total 420 / 420 1080 / 1080 1040 / 1040 120 / 120 Output Total 200 / 200 Balance 220 / 220 1080 / 1080 1040 / 1040 120 / 120 The patient's infection will respond to the chosen ABx?: Yes Is the patient receiving the right drug, dose, and route?: Yes Could a more targeted ABx be ordered?: No
--- NOTE | 2017-10-30 10:15 | CARE MANAGER ---
MR MCQUEEN IS DISCHARGING HOME WITH AFTERCARE INSTRUCTIONS AND CM STAFF WILL ASSIST NEEDED.
--- NOTE | 2017-10-30 16:48 | HMH.DCSUM ---
General - General Admission date: 10/27/17 Discharge date: 10/30/17 HPI HPI: 57-year-old male with history of coronary artery disease, COPD, diabetes was admitted to the hospital through the office after presenting with hypoxia with O2 sats at 80% on room air with profound dyspnea. Patient initially presented to an outside facility on October 25 and was dosed with pneumonia and placed on antibiotics. Patient followed up in the office and continued to have hypoxia without significant improvement in symptoms. He endorsed shortness of breath and cough that was nonproductive. He denied fevers or chills at that time. Patient was admitted to the hospital and started on broad-spectrum antibiotics. Objective Vital signs: Temp Pulse Resp BP Pulse Ox 98.3 F 63 18 150/59 93 L 10/30/17 12:35 10/30/17 12:35 10/30/17 12:35 10/30/17 12:35 10/30/17 12:35 Narrative: He is in no distress. Initial exam was significant for rales in the right middle lobe. This was consistent with his outpatient diagnosis of pneumonia. After 3 day hospital stay that included broad-spectrum antibiotics as well as diuresis with Lasix right middle lobe rales resolved. Hospital Course Hospital Course: Patient was admitted and started on broad-spectrum antibiotics. After 48 hours chest x-ray was repeated which was suggestive of fluid overload. Echocardiogram was ordered which revealed an ejection fraction greater than 55% with signs of increased right ventricular pressures and I believe this is in the patient's untreated sleep apnea. He failed CPAP and uses home oxygen at night. Nevertheless patient responded very well to diuresis with Lasix 40 mg daily. Patient had been on this medication in the past but it had been discontinued. He will restart Lasix daily. Patient was discharged home. In retrospect he likely did not have any pneumonia but was simply fluid overloaded. Patient will follow-up in my office next week. Results Completed studies during hospitalization [Text1]: Laboratory Results - last 72 hr 10/27/17 10/27/17 10/27/17 15:52 15:52 16:10 WBC RBC Hgb Hct MCV MCH MCHC RDW Plt Count MPV Neut % (Auto) Lymph % (Auto) [place] % (Auto) Eos % (Auto) Baso % (Auto) Neut # (Auto) Lymph # (Auto) [place] # (Auto) Eos # (Auto) Baso # (Auto) Sodium Potassium Chloride Carbon Dioxide Anion Gap BUN Creatinine Estimated Creat Clear Estimated GFR Est GFR ( Amer) Glucose B-Natriuretic Peptide Random Gentamicin Digoxin 0.86 L Chlamy pneumoniae PCR Not detected Adenovirus (PCR) Not detected B.parapertussis DNA PCR Not detected Coronavirus OC43 (PCR) Not detected Coronavirus HKU1 (PCR) Not detected Coronavirus 229E (PCR) Not detected Coronavirus NL63 (PCR) Not detected Human Metapneumovir PCR Not detected Influenza A (H1) PCR Not detected Influ A (H1N1/) PCR Not detected Influenza A (H3) PCR Not detected Influenza Type A (PCR) Not detected Influenza Type B (PCR) Not detected Mycoplasma pneumon IgM Non-reactive M. pneumoniae (PCR) Not detected Parainfluenza 1 (PCR) Not detected Parainfluenza 2 (PCR) Not detected Parainfluenza 3 (PCR) Not detected Parainfluenza 4 (PCR) Not detected RSV (PCR) Not detected Entero/Rhino (PCR) Not detected 10/27/17 10/28/17 10/28/17 22:00 06:25 06:25 WBC 5.9 RBC 3.59 L Hgb 10.6 L Hct 32.9 L MCV 91.7 MCH 29.7 MCHC 32.3 RDW 16.2 Plt Count 146 MPV 8.3 Neut % (Auto) 69.1 Lymph % (Auto) 18.2 [place] % (Auto) 4.8 Eos % (Auto) 7.5 Baso % (Auto) 0.5 Neut # (Auto) 4.1 Lymph # (Auto) 1.1 [place] # (Auto) 0.3 Eos # (Auto) 0.4 Baso # (Auto) 0.0 Sodium Potassium Chloride Carbon Dioxide Anion Gap BUN Creatinine Estimated Creat Clear
--- NOTE | 2017-10-30 16:53 | P.DS_ITS ---
General - General Admission date: 10/27/17 Discharge date: 10/30/17 HPI HPI: 57-year-old male with history of coronary artery disease, COPD, diabetes was admitted to the hospital through the office after presenting with hypoxia with O2 sats at 80% on room air with profound dyspnea. Patient initially presented to an outside facility on October 25 and was dosed with pneumonia and placed on antibiotics. Patient followed up in the office and continued to have hypoxia without significant improvement in symptoms. He endorsed shortness of breath and cough that was nonproductive. He denied fevers or chills at that time. Patient was admitted to the hospital and started on broad-spectrum antibiotics. Objective Vital signs: Temp Pulse Resp BP Pulse Ox 98.3 F 63 18 150/59 93 L 10/30/17 12:35 10/30/17 12:35 10/30/17 12:35 10/30/17 12:35 10/30/17 12:35 Narrative: He is in no distress. Initial exam was significant for rales in the right middle lobe. This was consistent with his outpatient diagnosis of pneumonia. After 3 day hospital stay that included broad-spectrum antibiotics as well as diuresis with Lasix right middle lobe rales resolved. Hospital Course Hospital Course: Patient was admitted and started on broad-spectrum antibiotics. After 48 hours chest x-ray was repeated which was suggestive of fluid overload. Echocardiogram was ordered which revealed an ejection fraction greater than 55% with signs of increased right ventricular pressures and I believe this is in the patient's untreated sleep apnea. He failed CPAP and uses home oxygen at night. Nevertheless patient responded very well to diuresis with Lasix 40 mg daily. Patient had been on this medication in the past but it had been discontinued. He will restart Lasix daily. Patient was discharged home. In retrospect he likely did not have any pneumonia but was simply fluid overloaded. Patient will follow-up in my office next week. Results Completed studies during hospitalization [Text1]: Laboratory Results - last 72 hr 10/27/17 10/27/17 10/27/17 15:52 15:52 16:10 WBC RBC Hgb Hct MCV MCH MCHC RDW Plt Count MPV Neut % (Auto) Lymph % (Auto) [place] % (Auto) Eos % (Auto) Baso % (Auto) Neut # (Auto) Lymph # (Auto) [place] # (Auto) Eos # (Auto) Baso # (Auto) Sodium Potassium Chloride Carbon Dioxide Anion Gap BUN Creatinine Estimated Creat Clear Estimated GFR Est GFR ( Amer) Glucose B-Natriuretic Peptide Random Gentamicin Digoxin 0.86 L Chlamy pneumoniae PCR Not detected Adenovirus (PCR) Not detected B.parapertussis DNA PCR Not detected Coronavirus OC43 (PCR) Not detected Coronavirus HKU1 (PCR) Not detected Coronavirus 229E (PCR) Not detected Coronavirus NL63 (PCR) Not detected Human Metapneumovir PCR Not detected Influenza A (H1) PCR Not detected Influ A (H1N1/09) PCR Not detected Influenza A (H3) PCR Not detected Influenza Type A (PCR) Not detected Influenza Type B (PCR) Not detected Mycoplasma pneumon IgM Non-reacti
== END 2017-10-30 17:25 | disposition home or self-care (01) | DRG 640 ==
PROVIDERS: Admitting Provider Family Medicine; PCP Family Medicine; Visit Provider Family Medicine
DX: E87.70 Fluid overload, unspecified (principal); J18.9 Pneumonia, unspecified organism; Z99.81 Dependence on supplemental oxygen; J44.9 Chronic obstructive pulmonary disease, unspecified; E11.9 Type 2 diabetes mellitus without complications; I25.10 Atherosclerotic heart disease of native coronary artery without angina pectoris; Z95.1 Presence of aortocoronary bypass graft; Z95.5 Presence of coronary angioplasty implant and graft; I10 Essential (primary) hypertension; E78.5 Hyperlipidemia, unspecified
CPT/HCPCS: 36415; 71046; 80048; 80162; 80170; 83880; 85025; 86738; 87486; 87581; 87633; 87798; 93306; 94640; 94760; 94761; J2543

== ENCOUNTER → 2017-11-13 09:52 | Outpatient (CLI) | payer MEDICARE, OTHER, SELFPAY ==
[2017-11-13 10:00] LABS: Microscopic, Urine URINE MICROSCOPIC (MICROSCOPIC)
[2017-11-13 10:16] LABS: Appearance,Urine CLEAR (Clear); Bilirubin,Urine Negative (Negative); Blood, Urine Negative (Negative); Color,Urine YELLOW (Yellow); Glucose,Urine (UA) Negative (Negative); Ketones,Urine Negative (Negative); Leukocyte Esterase,Urine Negative (Negative); Nitrate,Urine Negative (Negative); PH,Urine 5.5 (5.0-8.5); Protein,Urine Negative (Negative); Urobilinogen,Urine 0.2 EU/dl (0.2)
[2017-11-13 10:17] LABS: Basophils % 0.5 % (0.1-2.0); Eosinophils # 0.5 K/mm3 (0.0-0.4); Eosinophils % 7.2 % (0.1-12.0); Hematocrit 35.7 % (42.0-52.0); Hemoglobin 11.6 g/dL (14.1-18.0); Lymphocytes # 1.3 K/mm3 (0.7-4.5); Lymphocytes % 18.9 K/mm3 (10-50); Mean Corpuscular HGB Conc 32.5 g/dL (31.8-35.4); Mean Corpuscular Hemoglobin 29.5 pg (27.0-31.2); Mean Corpuscular Volume 90.8 fl (80-94); Mean Platelet Volume 8.8 fl (7.4-10.4); Monocytes # 0.3 K/mm3 (0.1-1.0); Monocytes % 4.7 % (1.7-9.3); Neutrophils # 4.6 K/mm3 (1.8-7.8); Neutrophils % 68.7 % (37.0-80.0); Platelet Count 181 K/mm3 (142-424); Red Blood Count 3.93 M/mm3 (4.60-6.20); Red Cell Distribution Width 15.1 % (11.5-17.5); White Blood Count 6.7 K/mm3 (4.8-10.8)
[2017-11-13 11:01] LABS: Bacteria,Urine Trace /lpf; Squamous Epithelial Cell,Urine Occasional #/hpf (0-5)
[2017-11-13 11:09] LABS: Total Protein,Urine Random < 6.0 mg/dL (0.0-11.9)
[2017-11-13 11:18] LABS: Albumin Level 4.1 gm/dL (3.4-5.0); Anion Gap 12.2 mEq/L (5-15); Blood Urea Nitrogen 26 mg/dL (7-18); Calcium 8.4 mg/dL (8.5-10.1); Carbon Dioxide 30 mmol/L (21.0-32.0); Chloride 104 mmol/L (98-107); Creatinine,Serum 1.59 mg/dL (0.70-1.30); Estimated Glomerular Filt Rate 44 ml/min (>60); GFR (African American) 53 ML/MIN (>60); Glucose 188 mg/dL (74-106); Phosphorous 3.5 mg/dL (2.4-4.9); Sodium 140 mmol/L (136-145); Uric Acid 9.6 mg/dL (2.6-7.2)
[2017-11-13 11:21] LABS: Potassium 6.2 mmoL/L (3.5-5.1)
[2017-11-14 10:16] LABS: Creatinine, Urine 75.7 mg/dL (Not Estab.); Microalbumin, Urine 4.1 ug/mL (Not Estab.)
[2017-11-14 18:28] LABS: Vitamin D 25 Hydroxy 18.2 ng/mL (30.0-100.0)
[2017-11-14 18:29] LABS: Parathyroid Hormone Intact 147 pg/mL (15-65)
== END ==
PROVIDERS: PCP Family Medicine; Visit Provider Internal Medicine Nephrology
DX: N18.3 Chronic kidney disease, stage 3 (moderate) (principal)
CPT/HCPCS: 36415; 80069; 81001; 82043; 82652; 83970; 84155; 84550; 85025

== ENCOUNTER → 2017-11-19 10:08 | Outpatient (CLI) | payer MEDICARE, OTHER, SELFPAY ==
[2017-11-19 10:54] LABS: Blood Urea Nitrogen 32 mg/dL (7-18); Carbon Dioxide 32 mmol/L (21.0-32.0); Chloride 106 mmol/L (98-107); Creatinine,Serum 1.69 mg/dL (0.70-1.30); Estimated Glomerular Filt Rate 41 ml/min (>60); GFR (African American) 50 ML/MIN (>60); Glucose 288 mg/dL (74-106); Sodium 142 mmol/L (136-145)
[2017-11-21 11:09] LABS: Calcium, Ionized 4.6 mg/dL (4.5-5.6)
== END ==
PROVIDERS: PCP Family Medicine; Visit Provider Internal Medicine Nephrology
DX: N18.3 Chronic kidney disease, stage 3 (moderate) (principal)
CPT/HCPCS: 36415; 80048; 82330

== ENCOUNTER → 2017-12-08 15:27 | Outpatient (POV) | payer MEDICARE, OTHER, SELFPAY | PROVIDERS: PCP Family Medicine; Visit Provider Internal Medicine Nephrology | DX: Z00.00 Encounter for general adult medical examination without abnormal findings (principal) ==

== ENCOUNTER → 2017-12-11 08:22 | Outpatient (CLI) | payer MEDICARE, OTHER, SELFPAY ==
[2017-12-11 09:28] LABS: Anion Gap 9.9 mEq/L (5-15); Blood Urea Nitrogen 24 mg/dL (7-18); Carbon Dioxide 32 mmol/L (21.0-32.0); Chloride 105 mmol/L (98-107); Creatinine,Serum 1.55 mg/dL (0.70-1.30); Estimated Glomerular Filt Rate 45 ml/min (>60); GFR (African American) 55 ML/MIN (>60); Glucose 198 mg/dL (74-106); Potassium 4.9 mmoL/L (3.5-5.1); Sodium 142 mmol/L (136-145)
== END ==
PROVIDERS: Visit Provider Internal Medicine Nephrology
DX: N18.2 Chronic kidney disease, stage 2 (mild) (principal)
CPT/HCPCS: 36415; 80048

== ENCOUNTER → 2018-01-26 11:26 | Outpatient (CLI) | payer MEDICARE, OTHER, SELFPAY ==
--- NOTE | 2018-01-26 11:36 | XR_ITS ---
XR chest 2V HISTORY: ITS.REASON: CONGESTIVE HEART FAILURE ORDERING PHYSICIAN: Day Spence PATIENT AGE: 67 years COMPARISON: 10/29/2017 FINDINGS: There is cardiomegaly. There has been a prior median sternotomy with CABG. No CHF evident. Consolidation is present superior segment of the right lower lobe consistent with right-sided pneumonia. There is minimal blunting of the CP angles on both sides. No acute bony anomalies. Calcified granuloma is present in the left lower lobe. IMPRESSION: 1. Right lower lobe pneumonia. 2. Cardiomegaly without definite failure
== END ==
PROVIDERS: PCP Nurse Practitioner Family; Visit Provider Nurse Practitioner Family
DX: I50.9 Heart failure, unspecified (principal)
CPT/HCPCS: 71046

== ENCOUNTER 2018-01-28 10:41 | Inpatient (IN) ==
[2018-01-28 12:34] LABS: Basophils % 0.1 % (0.1-2.0); Eosinophils # 0.2 K/mm3 (0.0-0.4); Eosinophils % 2.2 % (0.1-12.0); Hematocrit 30.8 % (42.0-52.0); Lymphocytes # 0.8 K/mm3 (0.7-4.5); Lymphocytes % 9.9 K/mm3 (10-50); Mean Corpuscular HGB Conc 32.4 g/dL (31.8-35.4); Mean Corpuscular Hemoglobin 29.8 pg (27.0-31.2); Mean Platelet Volume 8.6 fl (7.4-10.4); Monocytes # 0.4 K/mm3 (0.1-1.0); Monocytes % 5.2 % (1.7-9.3); Neutrophils # 6.5 K/mm3 (1.8-7.8); Neutrophils % 82.6 % (37.0-80.0); Platelet Count 196 K/mm3 (142-424); Red Blood Count 3.35 M/mm3 (4.60-6.20); Red Cell Distribution Width 15.4 % (11.5-17.5); White Blood Count 7.9 K/mm3 (4.8-10.8)
[2018-01-28 12:40] LABS: Anion Gap 16.8 mEq/L (5-15); Carbon Dioxide 24 mmol/L (21.0-32.0); Chloride 101 mmol/L (98-107); Glucose 196 mg/dL (74-106); Potassium 4.8 mmoL/L (3.5-5.1); Sodium 137 mmol/L (136-145)
[2018-01-28 12:49] LABS: Blood Urea Nitrogen 90 mg/dL (7-18)
--- NOTE | 2018-01-28 14:22 | Pharmacy Consult Notes ---
[facility] Pharmacy VTE Monitoring - Patient Demographics Admission date: 01/28/18 Report Date: 01/28/18 Time: 14:21 Allergies/Adverse Reactions: Patient Allergies No Known Allergies Allergy (Verified 10/27/17 15:27) Height: 1.75 m Weight: 114.022 kg - VTE Risk Labs: VTE Related Lab Results Hgb 10.0 g/dL (14.1-18.0) L 01/28/18 12:07 Hct 30.8 % (42.0-52.0) L 01/28/18 12:07 Plt Count 196 K/mm3 (142-424) 01/28/18 12:07 BUN 90 mg/dL (7-18) H 01/28/18 12:07 Creatinine 4.18 mg/dL (0.70-1.30) H 01/28/18 12:07 Estimated Creat Clear 28 mL/min (0-300) 01/28/18 12:07 Was VTE Risk Assessment Performed: Yes VTE Score: 6 VTE Risk Level: Moderate Risk Clinical Trial Participant: No - Prophylaxis VTE Prophylaxis Ordered?: Yes
--- NOTE | 2018-01-28 16:39 | History & Physical Report ---
*Admission Date: 01/28/18 *Chief complaint: Shortness of breath *History of present illness: A 7-year-old male with history of COPD as well as diastolic heart failure presented to the office on Friday of this week after 3 day bout of gastroenteritis with diarrhea. Patient had developed some mild dyspnea and a chest x-ray revealed what appears to be a right lower lobe pneumonia. Patient was started on oral Levaquin. Patient followed up in the office today feeling worse due to some chest discomfort that had developed overnight along with worsening shortness of breath. In the office patient's O2 sat was in the low 80s on room air and it was felt he likely had some congestive heart failure. Plan was made to admit the patient to the hospital. Patient has been admitted and upon arrival vital signs revealed hypotension. Due to perceived heart failure he has been given intravenous Lasix with minimal response. Labs have revealed acute kidney injury. Troponin is negative and BNP is elevated at over 700 [facility] History Medical History: Reports:: Congestive Heart Failure, Chronic Obstructive Pulmonary Disease (COPD), Coronary Artery Disease, Diabetes Mellitus Type 2, Hyperlipidemia, Hypertension, Myocardial Infarction Denies:: Cancer, Diabetes Mellitus Type 1, MRSA Other Medical History: Reports: Arthritis Other Surgeries: Yes: CABG (X2), Cardiac Catheterization, Colonoscopy, Coronary Stent, Open Heart Surgery (x2)Comment Only: Other (back surgery x 4) Amputation: No Fractures: No - *Social History Educational Level: Completed High School Smoking Status: Former smoker Tobacco Type: cigarettes Alcohol Intake: never Occupational Status: retired Housing: house Household Members: spouse - Psychiatric History Expresses thoughts of harming self/others: None Suicide Plan Description: No Plan *Family Hx:: Coronary Artery Disease, Diabetes, Heart Attack, Hyperlipidemia, Hypertension, Stroke Review of Systems - Review of Systems Review of systems:: pertinent systems reviewed and negative unless documented below Meds Home Medications Medication Instructions Recorded Confirmed Type Aspirin [Adult Low Dose Aspirin EC] 81 mg PO DAILY 10/27/17 01/28/18 History Carvedilol [Carvedilol 25mg Tab] 25 mg PO BID 10/27/17 01/28/18 History Glimepiride 4 mg PO BID 10/27/17 01/28/18 History Isosorbide Mononitrate [Imdur 30mg 30 mg PO DAILY 10/27/17 01/28/18 History ER tablet] Salmeterol Xinafoate [Serevent 50 mcg IH BID 10/27/17 01/28/18 History Diskus] Sitagliptin Phosphate [Januvia 50 mg PO DAILY 10/27/17 01/28/18 History 50mg Tablet] Furosemide [Lasix 40mg tab] 40 mg PO DAILY 01/28/18 01/28/18 History Lisinopril [Lisinopril 10mg Tab] 10 mg PO DAILY 01/28/18 01/28/18 History Rosuvastatin Calcium [Rosuvastatin 20 mg PO HS 01/28/18 01/28/18 History Calcium] Vitamin D3 50,000 unit Cap 50,000 units PO WEEKLY 01/28/18 01/28/18 History Allergies Allergy/AdvReac Type Severity Reaction Status Date / Time No Known Allergies Allergy Verified 10/27/17 15:27 Exam Vital signs and Labs for Last 24 Hours: Temp Pulse Resp BP Pulse Ox 97.6 F 67 20 92/47 93 L 01/28/18 16:00 01/28/18 16:00 01/28/18 16:00 01/28/18 16:00 01/28/18 16:00 Laboratory Results - last 24 hr 01/28/18 12:07: WBC 7.9, RBC 3.35 L, Hgb 10.0 L, Hct 30.8 L, MCV 92.0, MCH 29.8 , MCHC 32.4, RDW 15.4, Plt Count 196, MPV 8.6, Neut % (Auto) 82.6 H, Lymph % ( Auto) 9.9 L, [place] % (Auto) 5.2, Eos % (Auto) 2.2, Baso % (Auto) 0.1, Neut # ( Auto) 6.5, Lymph # (Auto) 0.8, [place] # (Auto) 0.4, Eos # (Auto) 0.2, Baso # (Auto ) 0.0 01/28/18 12:07: Sodium 137, Potassium 4.8, Chloride 101, Carbon Dioxide 24, Anion Gap 16.8 H, BUN 90 H, Creatinine 4.18 H, Estimated Creat Clear 28, Estimated GFR 14 L*, Est GFR ( Amer) 17 L*, Glucose 196 H, Troponin I < 0.02 01/28/18 12:07: B-Natriuretic Peptide 788 H I & O for Last 24 hours: Intake & Output 01/26/18 01/27/18 01/28/18 01/29/18 11:59 11:59 11:59 11:59 Intake Total 240 / 240 Balance 240 / 240 Weight 251 lb 6.007 oz 251 lb 6.007 oz Narrative: Patient appears comfortable laying in bed at this time. Pupils are reactive to light. Oropharynx is moist. Neck is without jugular venous distention. Lungs bibasilar rales right greater than left. Heart has a regular rate and rhythm. Abdomen is obese, soft, nontender, nondistended. Lower extremities are edematous, which is rare in this patient H&P: Result - Labs Labs: Short CBC 01/28/18 Range/Units 12:07 WBC 7.9 (4.8-10.8) K/mm3 Hgb 10.0 L (14.1-18.0) g/dL Hct 30.8 L (42.0-52.0) % Plt Count 196 (142-424) K/mm3 BMP 01/28/18 12:07 Sodium 137 Potassium 4.8 Chloride 101 Carbon Dioxide 24 BUN 90 H Creatinine 4.18 H Glucose 196 H Cardiac Enzymes 01/28/18 Range/Units 12:07 Troponin I < 0.02 (0.00-0.06) ng/ml Assessment and Plan (1) Heart failure with preserved ejection fraction Current visit: No Status: Acute Category: Medical Code(s): I50.30 - Unspecified diastolic (congestive) heart failure (2) Pneumonia Current visit: No Status: Acute Category: Medical Code(s): J18.9 - Pneumonia, unspecified organism (3) COPD (chronic obstructive pulmonary disease) Current visit: No Status: Chronic Category: Medical Code(s): J44.9 - Chronic obstructive pulmonary disease, unspecified (4) Coronary artery disease Current visit: No Status: Chronic Category: Medical Code(s): I25.10 - Atherosclerotic heart disease of [place] coronary artery without angina pectoris (5) Diabetes mellitus type II, controlled Current visit: No Status: Chronic Qualifiers: Category: Medical Code(s): E11.9 - Type 2 diabetes mellitus without complications - Assessment and plan all Dx Assessment and Plan for all problems:: 1. Start Rocephin and azithromycin 2. At present will gently hydrate the patient with NS at 50 mL's an hour. Should blood pressure dropped further will start a dopamine drip 3. Hold all home medications at this time due to hypotension and acute kidney injury.
[2018-01-29 06:50] LABS: Basophils % 0.2 % (0.1-2.0); Eosinophils # 0.2 K/mm3 (0.0-0.4); Eosinophils % 3.2 % (0.1-12.0); Hematocrit 32.6 % (42.0-52.0); Hemoglobin 10.4 g/dL (14.1-18.0); Lymphocytes # 1.1 K/mm3 (0.7-4.5); Lymphocytes % 15.6 K/mm3 (10-50); Mean Corpuscular HGB Conc 32.1 g/dL (31.8-35.4); Mean Corpuscular Hemoglobin 29.5 pg (27.0-31.2); Mean Platelet Volume 8.2 fl (7.4-10.4); Monocytes # 0.4 K/mm3 (0.1-1.0); Monocytes % 5.7 % (1.7-9.3); Neutrophils # 5.2 K/mm3 (1.8-7.8); Neutrophils % 75.4 % (37.0-80.0); Platelet Count 203 K/mm3 (142-424); Red Blood Count 3.54 M/mm3 (4.60-6.20); Red Cell Distribution Width 15.3 % (11.5-17.5); White Blood Count 6.9 K/mm3 (4.8-10.8)
[2018-01-29 06:51] LABS: Anion Gap 16.7 mEq/L (5-15); Potassium 4.7 mmoL/L (3.5-5.1)
--- NOTE | 2018-01-29 07:19 | Progress Note ---
Internal Medicine - PN: Subj *Date: 01/29/18 *Time: 07:18 Interval history: Patient reports may be slight improvement in his dyspnea. He did not have any problems overnight. Blood pressures remain low but last recorded blood pressure is in the 100s systolic. Exam Vital signs and Labs for Last 24 Hours: Temp Pulse Resp BP Pulse Ox 97.5 F L 82 20 100/51 93 L 01/29/18 04:21 01/29/18 04:21 01/29/18 04:21 01/29/18 04:21 01/29/18 04:21 Laboratory Results - last 24 hr 01/28/18 12:07: WBC 7.9, RBC 3.35 L, Hgb 10.0 L, Hct 30.8 L, MCV 92.0, MCH 29.8 , MCHC 32.4, RDW 15.4, Plt Count 196, MPV 8.6, Neut % (Auto) 82.6 H, Lymph % ( Auto) 9.9 L, [place] % (Auto) 5.2, Eos % (Auto) 2.2, Baso % (Auto) 0.1, Neut # ( Auto) 6.5, Lymph # (Auto) 0.8, [place] # (Auto) 0.4, Eos # (Auto) 0.2, Baso # (Auto ) 0.0 01/28/18 12:07: Sodium 137, Potassium 4.8, Chloride 101, Carbon Dioxide 24, Anion Gap 16.8 H, BUN 90 H, Creatinine 4.18 H, Estimated Creat Clear 28, Estimated GFR 14 L*, Est GFR ( Amer) 17 L*, Glucose 196 H, Troponin I < 0.02 01/28/18 12:07: B-Natriuretic Peptide 788 H 01/28/18 21:48: POC Glucose 162 H 01/29/18 06:10: WBC 6.9, RBC 3.54 L, Hgb 10.4 L, Hct 32.6 L, MCV 92.0, MCH 29.5 , MCHC 32.1, RDW 15.3, Plt Count 203, MPV 8.2, Neut % (Auto) 75.4, Lymph % (Auto ) 15.6, [place] % (Auto) 5.7, Eos % (Auto) 3.2, Baso % (Auto) 0.2, Neut # (Auto) 5.2, Lymph # (Auto) 1.1, [place] # (Auto) 0.4, Eos # (Auto) 0.2, Baso # (Auto) 0.0 01/29/18 06:10: Sodium 142, Potassium 4.7, Chloride 106, Carbon Dioxide 24, Anion Gap 16.7 H, BUN 89 H, Creatinine 3.32 H D, Estimated Creat Clear 35, Estimated GFR 19 L*, Est GFR ( Amer) 23 L D, Glucose 178 H 01/29/18 06:20: POC Glucose 168 H I & O for Last 24 hours: Intake & Output 01/26/18 01/27/18 01/28/18 01/29/18 11:59 11:59 11:59 11:59 Intake Total 2009 Output Total 1151 / 1151 Balance 859 / 859 Weight 251 lb 6.007 oz 247 lb 9 oz Narrative: He is in no distress. Nasal cannula is in place. Lung exam reveals fine crackles at the right base with diminished breath sounds at the left base. Heart has a regular rate and rhythm. Abdomen is soft and obese. Assessment and Plan (1) Heart failure with preserved ejection fraction Current visit: No Status: Acute Category: Medical Code(s): I50.30 - Unspecified diastolic (congestive) heart failure (2) Pneumonia Current visit: No Status: Acute Category: Medical Code(s): J18.9 - Pneumonia, unspecified organism (3) COPD (chronic obstructive pulmonary disease) Current visit: No Status: Chronic Category: Medical Code(s): J44.9 - Chronic obstructive pulmonary disease, unspecified (4) Coronary artery disease Current visit: No Status: Chronic Category: Medical Code(s): I25.10 - Atherosclerotic heart disease of [place] coronary artery without angina pectoris (5) Diabetes mellitus type II, controlled Current visit: No Status: Chronic Qualifiers: Category: Medical Code(s): E11.9 - Type 2 diabetes mellitus without complications (6) Acute kidney injury Current visit: Yes Status: Acute Category: Medical Code(s): N17.9 - Acute kidney failure, unspecified - Assessment and plan all Dx Assessment and Plan for all problems:: Continue gentle IV fluid hydration. Continue IV antibiotics. Careful monitoring of volume status. Echocardiogram in process currently
--- NOTE | 2018-01-30 07:20 | Progress Note ---
Internal Medicine - PN: Subj *Date: 01/30/18 *Time: 07:18 Interval history: Patient has no complaints this morning and is feeling better. He is less dyspneic although still requiring supplemental oxygen with recorded room air sat of 84% last night. He feels like he is having adequate urine output. Exam Vital signs and Labs for Last 24 Hours: Temp Pulse Resp BP Pulse Ox 97.6 F 82 12 102/43 91 L 01/30/18 05:26 01/30/18 05:26 01/30/18 05:26 01/30/18 05:26 01/30/18 05:26 Laboratory Results - last 24 hr 01/29/18 11:10: POC Glucose 223 H 01/29/18 17:05: POC Glucose 189 H 01/29/18 21:13: POC Glucose 165 H 01/30/18 05:45: POC Glucose 150 H I & O for Last 24 hours: Intake & Output 01/27/18 01/28/18 01/29/18 01/30/18 11:59 11:59 11:59 11:59 Intake Total 2250 / 2250 1493 / 1493 Output Total 1151 / 1151 651 / 651 Balance 1099 / 1099 842 / 842 Weight 251 lb 6.007 oz 247 lb 9 oz 243 lb Radiology Reports for the Last 24 Hours: Echocardiogram is Narrative: He appears comfortable sitting up in bed eating breakfast. Lung exam has basilar rales right greater than left. Heart has a regular rate and rhythm. Lower extremities are without edema. Assessment and Plan (1) Pneumonia Current visit: No Status: Acute Category: Medical Code(s): J18.9 - Pneumonia, unspecified organism (2) Heart failure with preserved ejection fraction Current visit: No Status: Acute Category: Medical Code(s): I50.30 - Unspecified diastolic (congestive) heart failure (3) COPD (chronic obstructive pulmonary disease) Current visit: No Status: Chronic Category: Medical Code(s): J44.9 - Chronic obstructive pulmonary disease, unspecified (4) Coronary artery disease Current visit: No Status: Chronic Category: Medical Code(s): I25.10 - Atherosclerotic heart disease of [place] coronary artery without angina pectoris (5) Diabetes mellitus type II, controlled Current visit: No Status: Chronic Qualifiers: Category: Medical Code(s): E11.9 - Type 2 diabetes mellitus without complications (6) Acute kidney injury Current visit: Yes Status: Acute Category: Medical Code(s): N17.9 - Acute kidney failure, unspecified - Assessment and plan all Dx Assessment and Plan for all problems:: 1. Await labs this morning. Hope to be able to restart some home medications 2. Monitor I's and O's
[2018-01-30 07:22] LABS: Anion Gap 13.1 mEq/L (5-15); Potassium 5.1 mmoL/L (3.5-5.1)
--- NOTE | 2018-01-30 12:27 | Cardiology Report ---
PROCEDURE: 2-D M-mode and color Doppler study INDICATIONS FOR THE TEST: Chest pain + COPD Heart Murmur+ Tobacco Smoking Palpitations Fatigue Syncope Edema Hypertension+Diabetes Mellitus+ Rheumatic Fever SOB+SEGURA Obesity+Hyperlipidemia Family History HD Additional History CABG, SD, CAD PATIENT INFORMATION HEIGHT: 71 WEIGHT:251 GENDER: Male B/P:92/47 2-D/M-MODE INTERPRETATION: 2-D MEASUREMENTS OBSERVED VALUES IN CMS Right Ventricular Dimension (RVDd) Interventricular Septum (Thickness)(IVsd) Left Ventricular Internal Dimensions(LVIDd) Left Ventricular Posterior Wall (Thickness)(LVPWd) Aortic Root Aortic Cusp Separation Left Atrial Dimensions (LAD) 2D 1. Left atrium is mildly enlarged, left ventricle is normal size, mild concentric left ventricular hypertrophy, visually estimated ejection fraction 55% with no obvious regional wall motion abnormality, there is abnormal septal motion. 2. The right atrium and right ventricle are moderately enlarged, contractility of the right ventricle is normal. 3. The aortic valve is minimally thickened and fibrosed. 4. The mitral and tricuspid valve leaflets are minimally thickened 5. The pulmonic valve is poorly visualized. 6. No significant pericardial effusion noted. DOPPLER INTERROGATION: Doppler interrogation of the aortic, mitral and tricuspid valvular presence of mild mitral and moderate tricuspid regurgitation, tricuspid and jet velocity insufficient for calculation of the right ventricular systolic pressure, grade 1 diastolic dysfunction seen with tissue Doppler evidence of raised left atrial pressure. CONCLUSION: 1. Biatrial enlargement, normal left ventricular size, mild concentric left ventricular hypertrophy, visually estimated ejection fraction 55% with no obvious wall motion abnormality, there is abnormal septal motion. Grade 1 diastolic dysfunction seen with tissue Doppler evidence of raised left atrial pressure. 2. Moderately enlarged right ventricle with normal contractility. 3. Mild mitral and moderate tricuspid regurgitation. 4. No significant pericardial effusion noted.
[2018-01-31 06:11] LABS: Anion Gap 10.5 mEq/L (5-15); Potassium 5.5 mmoL/L (3.5-5.1)
--- NOTE | 2018-01-31 07:29 | Progress Note ---
Internal Medicine - PN: Subj *Date: 01/31/18 *Time: 07:28 Interval history: Patient reports continued improvement in dyspnea and breathlessness. Yesterday evening he developed some epigastric fullness and discomfort with sensation of bloating. It is been approximately 48 hours since his last bowel movement and he believes he may be slightly constipated. He was given milk of magnesia without results. Exam Vital signs and Labs for Last 24 Hours: Temp Pulse Resp BP Pulse Ox 98.9 F 71 20 114/41 95 01/31/18 04:00 01/31/18 04:00 01/31/18 04:00 01/31/18 04:00 01/31/18 07:03 Laboratory Results - last 24 hr 01/30/18 06:30: Sodium 146 H, Potassium 5.1, Chloride 113 H, Carbon Dioxide 25, Anion Gap 13.1, BUN 65 H D, Creatinine 2.15 H D, Estimated Creat Clear 53, Estimated GFR 31 L, Est GFR ( Amer) 38 L D, Glucose 167 H 01/30/18 11:40: POC Glucose 219 H 01/30/18 16:27: POC Glucose 160 H 01/30/18 21:11: POC Glucose 162 H 01/31/18 05:25: Sodium 147 H, Potassium 5.5 H, Chloride 113 H, Carbon Dioxide 29 , Anion Gap 10.5, BUN 45 H D, Creatinine 1.67 H D, Estimated Creat Clear 70, Estimated GFR 41 L, Est GFR ( Amer) 50 L D, Glucose 153 H 01/31/18 06:16: POC Glucose 151 H I & O for Last 24 hours: Intake & Output 01/28/18 01/29/18 01/30/18 01/31/18 11:59 11:59 11:59 11:59 Intake Total 2250 / 2250 1853 / 1853 720 / 720 Output Total 1151 / 1151 651 / 651 1050 / 1050 Balance 1099 / 1099 1202 / 1202 -330 / -330 Weight 251 lb 6.007 oz 247 lb 9 oz 243 lb 246 lb 3 oz Narrative: Patient looks good. On exam he continues to have rales in the right base. Otherwise lungs are clear. Heart has a regular rate and rhythm. Assessment and Plan (1) Pneumonia Current visit: No Status: Acute Category: Medical Code(s): J18.9 - Pneumonia, unspecified organism (2) Heart failure with preserved ejection fraction Current visit: No Status: Acute Category: Medical Code(s): I50.30 - Unspecified diastolic (congestive) heart failure (3) COPD (chronic obstructive pulmonary disease) Current visit: No Status: Chronic Category: Medical Code(s): J44.9 - Chronic obstructive pulmonary disease, unspecified (4) Coronary artery disease Current visit: No Status: Chronic Category: Medical Code(s): I25.10 - Atherosclerotic heart disease of [place] coronary artery without angina pectoris (5) Diabetes mellitus type II, controlled Current visit: No Status: Chronic Qualifiers: Category: Medical Code(s): E11.9 - Type 2 diabetes mellitus without complications (6) Acute kidney injury Current visit: Yes Status: Acute Category: Medical Code(s): N17.9 - Acute kidney failure, unspecified - Assessment and plan all Dx Assessment and Plan for all problems:: Repeat chest x-ray today. Based on patient's past history and presentations I still suspect some of his abnormal lung exam is due to some fluid retention. Renal function is improved and almost back to baseline so I will discontinue his IV fluids. Continue antibiotics and await chest x-ray results. Blood pressure is also improving. I will continue him on his current dose of carvedilol
[2018-02-01 04:44] LABS: Anion Gap 11.1 mEq/L (5-15); Potassium 5.1 mmoL/L (3.5-5.1)
--- NOTE | 2018-02-01 07:27 | Progress Note ---
Internal Medicine - PN: Subj *Date: 02/01/18 *Time: 07:25 Interval history: Patient has no complaints. He feels like his breathing has improved a little. He had 2 bowel movements yesterday which relieved his abdominal discomfort. His chest x-ray from yesterday showed some improvement in the right lower lobe pneumonia. Exam Vital signs and Labs for Last 24 Hours: Temp Pulse Resp BP Pulse Ox 99.0 F 75 18 134/52 92 L 02/01/18 04:00 02/01/18 04:00 02/01/18 04:00 02/01/18 04:00 02/01/18 06:30 Laboratory Results - last 24 hr 01/31/18 11:08: POC Glucose 245 H 01/31/18 16:53: POC Glucose 188 H 01/31/18 21:11: POC Glucose 221 H 02/01/18 04:25: Sodium 142, Potassium 5.1, Chloride 108 H, Carbon Dioxide 28, Anion Gap 11.1, BUN 32 H D, Creatinine 1.46 H, Estimated Creat Clear 80, Estimated GFR 48 L, Est GFR ( Amer) 59, Glucose 140 H 02/01/18 05:40: POC Glucose 153 H I & O for Last 24 hours: Intake & Output 01/29/18 01/30/18 01/31/18 02/01/18 11:59 11:59 11:59 11:59 Intake Total 2250 / 2250 1853 / 1853 720 / 720 1140 / 1140 Output Total 1151 / 1151 651 / 651 1450 / 1450 Balance 1099 / 1099 1202 / 1202 -730 / -730 1140 / 1140 Weight 247 lb 9 oz 243 lb 246 lb 3 oz 249 lb 7 oz Narrative: He is awake and alert and in no distress. Heart has a regular rate and rhythm. Lungs are distant with right basilar rales essentially unchanged from the beginning of admission. Assessment and Plan (1) Pneumonia Current visit: No Status: Acute Category: Medical Code(s): J18.9 - Pneumonia, unspecified organism (2) Heart failure with preserved ejection fraction Current visit: No Status: Acute Category: Medical Code(s): I50.30 - Unspecified diastolic (congestive) heart failure (3) COPD (chronic obstructive pulmonary disease) Current visit: No Status: Chronic Category: Medical Code(s): J44.9 - Chronic obstructive pulmonary disease, unspecified (4) Coronary artery disease Current visit: No Status: Chronic Category: Medical Code(s): I25.10 - Atherosclerotic heart disease of [place] coronary artery without angina pectoris (5) Diabetes mellitus type II, controlled Current visit: No Status: Chronic Qualifiers: Category: Medical Code(s): E11.9 - Type 2 diabetes mellitus without complications (6) Acute kidney injury Current visit: Yes Status: Acute Category: Medical Code(s): N17.9 - Acute kidney failure, unspecified - Assessment and plan all Dx Assessment and Plan for all problems:: I am beginning to suspect that the abnormality seen on x-ray is actually from congestive heart failure and not bacterial pneumonia. Despite patient's improvement he was very surprised when I explained to him this morning that he had not been on any diuretic all week long. On multiple occasions in the past he has been treated for pneumonia when ultimately the cause of his dyspnea was underlying congestive heart failure. Patient's renal function has returned to baseline. I am going to give him 1 dose of IV Lasix and and then reassess with both chest x-ray and basic metabolic panel in the morning.
--- NOTE | 2018-02-01 12:01 | Progress Note ---
Internal Medicine - PN: Subj *Date: 02/01/18 *Time: 12:01 Exam Vital signs and Labs for Last 24 Hours: Temp Pulse Resp BP Pulse Ox 98.2 F 67 20 132/65 96 02/01/18 11:12 02/01/18 11:12 02/01/18 11:12 02/01/18 11:12 02/01/18 11:12 Laboratory Results - last 24 hr 01/31/18 16:53: POC Glucose 188 H 01/31/18 21:11: POC Glucose 221 H 02/01/18 04:25: Sodium 142, Potassium 5.1, Chloride 108 H, Carbon Dioxide 28, Anion Gap 11.1, BUN 32 H D, Creatinine 1.46 H, Estimated Creat Clear 80, Estimated GFR 48 L, Est GFR ( Amer) 59, Glucose 140 H 02/01/18 05:40: POC Glucose 153 H 02/01/18 11:28: POC Glucose 181 H I & O for Last 24 hours: Intake & Output 01/29/18 01/30/18 01/31/18 02/01/18 23:59 23:59 23:59 23:59 Intake Total 1770 / 1770 2333 / 2333 1030 / 1030 470 / 470 Output Total 1152 / 1152 1000 / 1000 1100 / 1100 650 / 650 Balance 618 / 618 1333 / 1333 -70 / -70 -180 / -180 Weight 112.292 kg 110.223 kg 111.669 kg 113.143 kg Assessment and Plan (1) Pneumonia Current visit: No Status: Acute Category: Medical Code(s): J18.9 - Pneumonia, unspecified organism (2) Heart failure with preserved ejection fraction Current visit: No Status: Acute Category: Medical Code(s): I50.30 - Unspecified diastolic (congestive) heart failure (3) COPD (chronic obstructive pulmonary disease) Current visit: No Status: Chronic Category: Medical Code(s): J44.9 - Chronic obstructive pulmonary disease, unspecified (4) Coronary artery disease Current visit: No Status: Chronic Category: Medical Code(s): I25.10 - Atherosclerotic heart disease of [place] coronary artery without angina pectoris (5) Diabetes mellitus type II, controlled Current visit: No Status: Chronic Qualifiers: Category: Medical Code(s): E11.9 - Type 2 diabetes mellitus without complications (6) Acute kidney injury Current visit: Yes Status: Acute Category: Medical Code(s): N17.9 - Acute kidney failure, unspecified The patient's infection will respond to the chosen ABx?: Yes Is the patient receiving the right drug, dose, and route?: Yes Could a more targeted ABx be ordered?: No
[2018-02-02 04:58] LABS: Potassium 5.6 mmoL/L (3.5-5.1)
[2018-02-02 04:59] LABS: Anion Gap 9.6 mEq/L (5-15)
--- NOTE | 2018-02-02 07:07 | Discharge Summary ---
General - General Admission date: 01/28/18 Discharge date: 02/02/18 HPI HPI: A 7-year-old male with history of COPD as well as diastolic heart failure presented to the office on Friday of this week after 3 day bout of gastroenteritis with diarrhea. Patient had developed some mild dyspnea and a chest x-ray revealed what appears to be a right lower lobe pneumonia. Patient was started on oral Levaquin. Patient followed up in the office today feeling worse due to some chest discomfort that had developed overnight along with worsening shortness of breath. In the office patient's O2 sat was in the low 80s on room air and it was felt he likely had some congestive heart failure. Plan was made to admit the patient to the hospital. Patient has been admitted and upon arrival vital signs revealed hypotension. Due to perceived heart failure he has been given intravenous Lasix with minimal response. Labs have revealed acute kidney injury. Troponin is negative and BNP is elevated at over 700 Hospital Course Hospital Course: Definite azithromycin. Lung exam was significant for basilar crackles right greater than left. Patient was found to have an acute kidney injury and was hypotensive on admission. Patient was placed on gentle IV fluid hydration and nephrotoxic medications as well as Lasix were held. Patient's fluid status was carefully monitored and renal function was followed daily. Patient's renal function gradually improved until it had returned to baseline. During this time patient noted gradual improvement in his level of dyspnea. His lung exam did not change significantly. A follow-up chest x-ray showed interval improvement in the size of the right lower lobe pneumonia. Once renal function returned to normal patient's Lasix were restarted due to [place] of underlying congestive heart failure contributing to abnormal appearance of chest x-ray. Patient had excellent response to an intravenous dose of Lasix 40 mg causing negative fluid balance and weight loss. However the appearance of the x-ray remained unchanged from the pneumonia. On the patient had completed a seven-day course of antibiotics. Renal function had returned to normal and was unaffected by reinitiation of Lasix. Patient was discharged home. He will follow-up in the office in 1 week. As he is completed a course of antibiotics he will not need any further antibiotics. Objective Vital signs: Temp Pulse Resp BP Pulse Ox 98.6 F 69 16 135/47 92 L 02/02/18 03:42 02/02/18 03:42 02/02/18 03:42 02/02/18 03:42 02/02/18 06:19 Results Labs on day of discharge: Labs from last 24 hours 02/02/18 02/02/18 02/01/18 06:25 04:25 20:56 Sodium 141 Potassium 5.6 H Chloride 104 Carbon Dioxide 33 H Anion Gap 9.6 BUN 27 H Creatinine 1.55 H Estimated Creat Clear 75 Estimated GFR 45 L Est GFR ( Amer) 55 L Glucose 184 H D POC Glucose 172 H 232 H 02/01/18 02/01/18 16:34 11:28 Sodium Potassium Chloride Carbon Dioxide Anion Gap BUN Creatinine Estimated Creat Clear Estimated GFR Est GFR ( Amer) Glucose POC Glucose 172 H 181 H DS: Diagnosis - Discharge Diagnosis (1) Pneumonia Status: Acute (2) Heart failure with preserved ejection fraction Status: Acute (3) COPD (chronic obstructive pulmonary disease) Status: Chronic (4) Coronary artery disease Status: Chronic (5) Diabetes mellitus type II, controlled Status: Chronic (6) Acute kidney injury Status: Acute Discharge Plan - Patient Discharge Instructions ACTIVITY: Continue current activity DIET: continue same diet Patient Instructions: Low-Sodium Diet - Follow up Plan Follow up with: Crispin Quintero MD [Staff Physician] - 1 week Disposition: Home, Self-Skilled Nursing Medications: Home Medications Medication Instructions Recorded Confirmed Type Aspirin [Adult Low Dose Aspirin EC] 81 mg PO DAILY 10/27/17 01/28/18 History Carvedilol [Carvedilol 25mg Tab] 25 mg PO BID 10/27/17 01/28/18 History Glimepiride 4 mg PO BID 10/27/17 01/28/18 History Isosorbide Mononitrate [Imdur 30mg 30 mg PO DAILY 10/27/17 01/28/18 History ER tablet] Salmeterol Xinafoate [Serevent 50 mcg IH BID 10/27/17 01/28/18 History Diskus] Sitagliptin Phosphate [Januvia 50 mg PO DAILY 10/27/17 01/28/18 History 50mg Tablet] Furosemide [Lasix 40mg tab] 40 mg PO DAILY 01/28/18 01/28/18 History Lisinopril [Lisinopril 10mg Tab] 10 mg PO DAILY 01/28/18 01/28/18 History Rosuvastatin Calcium [Rosuvastatin 20 mg PO HS 01/28/18 01/28/18 History Calcium] Vitamin D3 50,000 unit Cap 50,000 units PO WEEKLY 01/28/18 01/28/18 History Prescriptions/Medication Reconciliation: Continue Carvedilol [Carvedilol 25mg Tab] 25 mg PO BID Sitagliptin Phosphate [Januvia 50mg Tablet] 50 mg PO DAILY Salmeterol Xinafoate [Serevent Diskus] 50 mcg IH BID Aspirin [Adult Low Dose Aspirin EC] 81 mg PO DAILY Glimepiride 4 mg PO BID Furosemide [Lasix 40mg tab] 40 mg PO DAILY Rosuvastatin Calcium [Rosuvastatin Calcium] 20 mg PO HS Discontinued Isosorbide Mononitrate [Imdur 30mg ER tablet] 30 mg PO DAILY Lisinopril [Lisinopril 10mg Tab] 10 mg PO DAILY Vitamin D3 50,000 unit Cap 50,000 units PO WEEKLY
[2018-02-02 07:15] VITALS: BP 133/63
== END 2018-02-02 08:05 | disposition home or self-care (01) ==
LOC: 2ND 10:48
PROVIDERS: ADMIT Family Medicine; ATTEND Family Medicine

== ENCOUNTER → 2018-02-09 09:02 | Outpatient (CLI) | payer MEDICARE, OTHER, SELFPAY ==
--- NOTE | 2018-02-09 09:07 | XR_ITS ---
XR chest 2V HISTORY: ITS.REASON: PNEUMONIA ORDERING PHYSICIAN: Crispin Quintero MD PATIENT AGE: 67 years COMPARISON: 02/02/2018 FINDINGS: Prior CABG with cardiomegaly and mild redistribution of the pulmonary vessels suggesting mild chronic CHF. Previously noted right lower lobe pneumonia has shown some improvement. There remains some residual density in the right lower lobe. The left lung is clear. Degenerative changes are present in the thoracic spine. IMPRESSION: Persistent but improving right lower lobe pneumonia with mild CHF
== END ==
PROVIDERS: PCP Family Medicine; Visit Provider Family Medicine
DX: J18.1 Lobar pneumonia, unspecified organism (principal)
CPT/HCPCS: 71046

== ENCOUNTER → 2018-03-10 08:47 | Outpatient (CLI) | payer MEDICARE, OTHER, SELFPAY ==
--- NOTE | 2018-03-10 08:51 | XR_ITS ---
XR chest 2V HISTORY: ITS.REASON: PNEUMONIA ORDERING PHYSICIAN: Crispin Quintero MD PATIENT AGE: 67 years COMPARISON: 02/09/2018 FINDINGS: Prior CABG. Mild cardiomegaly with mild chronic CHF.. There is persistent increased density in the right perihilar region and right lower lobe suggesting residual pneumonia. Somewhat more prominent on today's exam. The remaining lungs are clear. IMPRESSION: 1. Chronic CHF. 2. Persistent right lower lobe infiltrate appears somewhat worse. Consider chest CT with contrast for further evaluation.
== END ==
PROVIDERS: PCP Family Medicine; Visit Provider Family Medicine
DX: J18.1 Lobar pneumonia, unspecified organism (principal)
CPT/HCPCS: 71046

== ENCOUNTER → 2018-03-18 13:39 | Outpatient (CLI) | payer MEDICARE, OTHER, SELFPAY ==
--- NOTE | 2018-03-18 13:50 | CT_ITS ---
CT chest wo con HISTORY: ITS.REASON: ABNORMAL CXR,PNEUMONIA ORDERING PHYSICIAN: Crispin Quintero MD PATIENT AGE: 67 years COMPARISON: None Technique: Axial images obtained. Sagittal and coronal reformatted images are also generated and reviewed. All CT scans at the facility use one or more dose reduction, viz: automated exposure control; ma/kV adjustment per patient size (including targeted exams where dose is matched to indication; i.e. head); or iterative reconstruction technique. FINDINGS: There is been a prior median sternotomy with CABG. There is diffuse coronary artery calcification. There is mild cardiomegaly and mild engorgement of the pulmonary vessels as well as some minimal prominence of the interstitium suggesting mild chronic CHF.. No evidence of pericardial effusion. No mediastinal or hilar mass or adenopathy. There is diffuse thickening of the esophagus containing air. This thickening could be related to diffuse esophagitis. No mediastinal or hilar mass or adenopathy. There are scattered noncalcified pulmonary nodules which are all less than 6 mm. These include: 4 mm nodule right upper lobe laterally, 4 mm nodule right middle lobe, 4 mm nodule right middle lobe, 5 mm nodule right middle lobe laterally, 3 mm nodule right upper lobe posteriorly, 4 mm nodule left upper lobe posteriorly. Upper abdominal images show a 16 mm isodense lesion along the superior pole of the left kidney consistent with a renal cyst with an additional 12 mm isodensity projecting off the left kidney posteriorly. A gallstone is also present. No acute bony anomalies IMPRESSION: 1. Prior CABG. Cardiomegaly with mild pulmonary venous congestion and prominence of the interstitium suggesting chronic CHF 2. Scattered noncalcified pulmonary nodules less than 6 mm. These are indeterminate. Six-month follow-up recommended. 3. Cholelithiasis 4. Diffuse thickening of the esophagus suggesting esophagitis
== END ==
PROVIDERS: PCP Family Medicine; Visit Provider Family Medicine
DX: R91.8 Other nonspecific abnormal finding of lung field (principal)
CPT/HCPCS: 71250

== ENCOUNTER → 2018-03-18 15:55 | Outpatient (POV) | payer MEDICARE, OTHER, SELFPAY | PROVIDERS: PCP Family Medicine | DX: Z00.00 Encounter for general adult medical examination without abnormal findings (principal) ==

== ENCOUNTER → 2018-04-17 08:34 | Outpatient (CLI) | payer MEDICARE, OTHER, SELFPAY ==
[2018-04-17 08:39] LABS: Microscopic, Urine URINE MICROSCOPIC (MICROSCOPIC)
[2018-04-17 09:04] LABS: Basophils % 0.4 % (0.1-2.0); Eosinophils # 0.3 K/mm3 (0.0-0.4); Eosinophils % 6.1 % (0.1-12.0); Hematocrit 39.1 % (42.0-52.0); Hemoglobin 11.8 g/dL (14.1-18.0); Mean Corpuscular HGB Conc 30.1 g/dL (31.8-35.4); Mean Corpuscular Hemoglobin 27.7 pg (27.0-31.2); Mean Corpuscular Volume 92.3 fl (80-94); Mean Platelet Volume 9.4 fl (7.4-10.4); Monocytes # 0.3 K/mm3 (0.1-1.0); Monocytes % 5.4 % (1.7-9.3); Neutrophils # 3.7 K/mm3 (1.8-7.8); Neutrophils % 69.1 % (37.0-80.0); Platelet Count 130 K/mm3 (142-424); Red Blood Count 4.24 M/mm3 (4.60-6.20); Red Cell Distribution Width 15.2 % (11.5-17.5); White Blood Count 5.3 K/mm3 (4.8-10.8)
[2018-04-17 10:37] LABS: Bilirubin,Urine Negative (Negative); Blood, Urine Negative (Negative); Color,Urine YELLOW (Yellow); Glucose,Urine (UA) Negative (Negative); Ketones,Urine Negative (Negative); Leukocyte Esterase,Urine Negative (Negative); Nitrate,Urine Negative (Negative); Protein,Urine Negative (Negative); Specific Gravity, Urine 1.015 (1.005-1.030); Urobilinogen,Urine 0.2 EU/dl (0.2)
[2018-04-17 10:49] LABS: Albumin Level 3.8 gm/dL (3.4-5.0); Anion Gap 10.4 mEq/L (5-15); Appearance,Urine Clear (Clear); Blood Urea Nitrogen 22 mg/dL (7-18); Calcium 8.2 mg/dL (8.5-10.1); Carbon Dioxide 35 mmol/L (21.0-32.0); Chloride 101 mmol/L (98-107); Creatinine,Serum 1.57 mg/dL (0.70-1.30); Estimated Glomerular Filt Rate 45 ml/min (>60); GFR (African American) 54 ML/MIN (>60); Glucose 261 mg/dL (74-106); Phosphorous 4.1 mg/dL (2.4-4.9); Potassium 4.4 mmoL/L (3.5-5.1); Sodium 142 mmol/L (136-145)
[2018-04-17 11:02] LABS: WBC,Urine Occasional #/hpf (0-3)
[2018-04-17 11:03] LABS: Bacteria,Urine Trace /lpf
[2018-04-17 11:18] LABS: Total Protein,Urine Random 19.1 mg/dL (0.0-11.9)
[2018-04-18 09:22] LABS: Creatinine, Urine 79.8 mg/dL (Not Estab.); Microalbumin, Urine 68.1 ug/mL (Not Estab.)
== END ==
PROVIDERS: Visit Provider Internal Medicine Nephrology
DX: N18.3 Chronic kidney disease, stage 3 (moderate) (principal)
CPT/HCPCS: 36415; 80069; 81001; 82043; 82570; 84155; 85025

== ENCOUNTER → 2018-04-23 14:25 | Outpatient (POV) | payer MEDICARE, OTHER, SELFPAY | PROVIDERS: PCP Family Medicine; Visit Provider Internal Medicine Nephrology | DX: Z00.00 Encounter for general adult medical examination without abnormal findings (principal) ==

== ENCOUNTER → 2018-05-26 09:54 | Outpatient (CLI) | payer MEDICARE, OTHER, SELFPAY ==
[2018-05-26 11:37] VITALS: PULSE 60; PULSE 64
== END ==
PROVIDERS: PCP Family Medicine; Visit Provider Family Medicine
DX: J44.9 Chronic obstructive pulmonary disease, unspecified (principal)
CPT/HCPCS: 94060; 94640

== ENCOUNTER → 2018-09-04 08:44 | Outpatient (CLI) | payer MEDICARE, OTHER, SELFPAY ==
[2018-09-04 09:26] LABS: Anion Gap 13.3 mEq/L (5-15); Blood Urea Nitrogen 35 mg/dL (7-18); Calcium 8.3 mg/dL (8.5-10.1); Carbon Dioxide 32 mmol/L (21.0-32.0); Chloride 102 mmol/L (98-107); Creatinine,Serum 1.59 mg/dL (0.70-1.30); Estimated Glomerular Filt Rate 44 ml/min (>60); GFR (African American) 53 ML/MIN (>60); Glucose 159 mg/dL (74-106); Potassium 5.3 mmoL/L (3.5-5.1); Sodium 142 mmol/L (136-145)
== END ==
PROVIDERS: Visit Provider Clinical Nurse Specialist Adult Health
DX: Z79.899 Other long term (current) drug therapy (principal)
CPT/HCPCS: 36415; 80048

== ENCOUNTER → 2018-09-28 09:46 | Outpatient (CLI) | payer MEDICARE, OTHER, SELFPAY ==
[2018-09-28 11:07] LABS: Blood Urea Nitrogen 28 mg/dL (7-18); Calcium 8.3 mg/dL (8.5-10.1); Carbon Dioxide 32 mmol/L (21.0-32.0); Chloride 102 mmol/L (98-107); Estimated Glomerular Filt Rate 43 ml/min (>60); GFR (African American) 53 ML/MIN (>60); Glucose 173 mg/dL (74-106); Sodium 141 mmol/L (136-145)
== END ==
PROVIDERS: Visit Provider Clinical Nurse Specialist Adult Health
DX: Z79.899 Other long term (current) drug therapy (principal)
CPT/HCPCS: 36415; 80048

== ENCOUNTER → 2018-10-15 10:22 | Outpatient (CLI) | payer MEDICARE, OTHER, SELFPAY ==
[2018-10-15 10:28] LABS: Microscopic, Urine URINE MICROSCOPIC (MICROSCOPIC)
[2018-10-15 11:03] LABS: Appearance,Urine CLEAR (Clear); Bilirubin,Urine Negative (Negative); Blood, Urine Negative (Negative); Color,Urine YELLOW (Yellow); Glucose,Urine (UA) Negative (Negative); Ketones,Urine Negative (Negative); Leukocyte Esterase,Urine Negative (Negative); Nitrate,Urine Negative (Negative); Protein,Urine Negative (Negative); Specific Gravity, Urine 1.015 (1.005-1.030); Urobilinogen,Urine 0.2 EU/dl (0.2)
[2018-10-15 11:09] LABS: Creatinine,Urine Random 59 mg/dL (20-320); Total Protein,Urine Random 9.5 mg/dL (0.0-11.9)
[2018-10-15 11:19] LABS: Hematocrit 36.7 % (42.0-52.0); Hemoglobin 12.2 g/dL (14.1-18.0); Mean Corpuscular HGB Conc 33.2 g/dL (31.8-35.4); Mean Corpuscular Hemoglobin 29.6 pg (27.0-31.2); Mean Corpuscular Volume 89.1 fl (80-94); Red Blood Count 4.12 M/mm3 (4.60-6.20); White Blood Count 6.8 K/mm3 (4.8-10.8)
[2018-10-15 11:20] LABS: Basophils % 0.5 % (0.1-2.0); Eosinophils # 0.6 K/mm3 (0.0-0.4); Eosinophils % 8.2 % (0.1-12.0); Lymphocytes # 1.5 K/mm3 (0.7-4.5); Lymphocytes % 21.8 % (10-50); Mean Platelet Volume 8.1 fl (7.4-10.4); Monocytes # 0.4 K/mm3 (0.1-1.0); Monocytes % 5.1 % (1.7-9.3); Neutrophils # 4.4 K/mm3 (1.8-7.8); Neutrophils % 64.4 % (37.0-80.0); Platelet Count 162 K/mm3 (142-424); Red Cell Distribution Width 17.1 % (11.5-17.5)
[2018-10-15 11:39] LABS: Albumin Level 3.8 gm/dL (3.4-5.0); Anion Gap 12.4 mEq/L (5-15); Blood Urea Nitrogen 24 mg/dL (7-18); Carbon Dioxide 32 mmol/L (21.0-32.0); Chloride 103 mmol/L (98-107); Creatinine,Serum 1.47 mg/dL (0.70-1.30); Estimated Glomerular Filt Rate 48 ml/min (>60); GFR (African American) 58 ML/MIN (>60); Glucose 166 mg/dL (74-106); Phosphorous 3.2 mg/dL (2.4-4.9); Potassium 4.4 mmoL/L (3.5-5.1); Sodium 143 mmol/L (136-145)
[2018-10-15 11:50] LABS: Squamous Epithelial Cell,Urine Occasional #/hpf (0-5); WBC,Urine Occasional #/hpf (0-3)
[2018-10-17 10:54] LABS: Parathyroid Hormone Intact 145 pg/mL (15-65)
[2018-10-17 10:55] LABS: Calcium, Ionized 4.6 mg/dL (4.5-5.6); Vitamin D 25 Hydroxy 28.3 ng/mL (30.0-100.0)
== END ==
PROVIDERS: Visit Provider Internal Medicine Nephrology
DX: N18.3 Chronic kidney disease, stage 3 (moderate) (principal)
CPT/HCPCS: 36415; 80069; 81001; 82330; 82570; 82652; 83970; 84155; 85025

== ENCOUNTER → 2018-10-22 13:36 | Outpatient (POV) | payer MEDICARE, OTHER, SELFPAY | PROVIDERS: Visit Provider Internal Medicine Nephrology | DX: Z00.00 Encounter for general adult medical examination without abnormal findings (principal) ==

== ENCOUNTER → 2019-05-11 09:31 | Outpatient (CLI) | payer MEDICARE, OTHER, SELFPAY ==
[2019-05-11 09:36] LABS: Microscopic, Urine URINE MICROSCOPIC (MICROSCOPIC)
[2019-05-11 09:59] LABS: Creatinine,Urine Random 49 mg/dL (20-320)
[2019-05-11 10:22] LABS: Basophils % 0.6 % (0.1-2.0); Eosinophils # 0.6 K/mm3 (0.0-0.4); Eosinophils % 8.8 % (0.1-12.0); Hematocrit 38.1 % (42.0-52.0); Hemoglobin 12.4 g/dL (14.1-18.0); Lymphocytes # 1.3 K/mm3 (0.7-4.5); Lymphocytes % 19.4 % (10-50); Mean Corpuscular HGB Conc 32.5 g/dL (31.8-35.4); Mean Corpuscular Volume 86.2 fl (80-94); Mean Platelet Volume 8.1 fl (7.4-10.4); Monocytes # 0.4 K/mm3 (0.1-1.0); Monocytes % 5.6 % (1.7-9.3); Neutrophils # 4.3 K/mm3 (1.8-7.8); Neutrophils % 65.5 % (37.0-80.0); Platelet Count 160 K/mm3 (142-424); Red Blood Count 4.43 M/mm3 (4.60-6.20); Red Cell Distribution Width 15.2 % (11.5-17.5); White Blood Count 6.5 K/mm3 (4.8-10.8)
[2019-05-11 10:23] LABS: Appearance,Urine CLEAR (Clear); Bilirubin,Urine Negative (Negative); Blood, Urine Negative (Negative); Color,Urine YELLOW (Yellow); Glucose,Urine (UA) Negative (Negative); Ketones,Urine Negative (Negative); Leukocyte Esterase,Urine Negative (Negative); Nitrate,Urine Negative (Negative); PH,Urine 5.5 (5.0-8.5); Protein,Urine Negative (Negative); Specific Gravity, Urine 1.015 (1.005-1.030); Urobilinogen,Urine 0.2 EU/dl (0.2)
[2019-05-11 10:57] LABS: WBC,Urine Occasional #/hpf (0-3)
[2019-05-11 10:58] LABS: Bacteria,Urine Trace /lpf; Squamous Epithelial Cell,Urine Occasional #/hpf (0-5)
[2019-05-11 11:59] LABS: Albumin Level 3.9 gm/dL (3.4-5.0); Anion Gap 9.5 mEq/L (5-15); Blood Urea Nitrogen 22 mg/dL (7-18); Calcium 8.4 mg/dL (8.5-10.1); Carbon Dioxide 37 mmol/L (21.0-32.0); Chloride 100 mmol/L (98-107); Creatinine,Serum 1.63 mg/dL (0.70-1.30); Estimated Glomerular Filt Rate 43 ml/min (>60); GFR (African American) 51 ML/MIN (>60); Glucose 187 mg/dL (74-106); Phosphorous 3.3 mg/dL (2.4-4.9); Potassium 4.5 mmoL/L (3.5-5.1); Sodium 142 mmol/L (136-145)
[2019-05-13 08:19] LABS: Vitamin D 25 Hydroxy 44.2 ng/mL (30.0-100.0)
== END ==
PROVIDERS: Visit Provider Internal Medicine Nephrology
DX: N18.3 Chronic kidney disease, stage 3 (moderate) (principal)
CPT/HCPCS: 36415; 80069; 81001; 82570; 82652; 84155; 85025

== ENCOUNTER → 2019-05-31 15:22 | Outpatient (POV) | payer MEDICARE, OTHER, SELFPAY | PROVIDERS: Visit Provider Internal Medicine Nephrology | DX: Z00.00 Encounter for general adult medical examination without abnormal findings (principal) ==

== ENCOUNTER → 2019-09-29 14:46 | Outpatient (POV) | payer MEDICARE, OTHER, SELFPAY | DX: Z00.00 Encounter for general adult medical examination without abnormal findings (principal) ==

== ENCOUNTER → 2019-10-01 10:30 | Outpatient (CLI) | payer MEDICARE, OTHER, SELFPAY ==
--- NOTE | 2019-10-01 10:36 | XR_ITS ---
PROCEDURE: XR KNEE LT 3V CLINICAL INDICATION: LT KNEE PAIN COMPARISON: No exams were available for comparison FINDINGS: No fracture or dislocation. No lytic or blastic change. There is normal mineralization. Minimal osteoarthritic changes are present at the medial compartment. Surgical clips are present medially. No fracture or dislocation. No lytic or blastic change. Other findings:None. IMPRESSION: Minimal osteoarthritis Dictated by: Edward Barker MD 10/01/2019 13:59 Electronically signed by Edward Barker MD in [facility] 10/01/2019 14:00
--- NOTE | 2019-10-01 10:36 | XR_ITS ---
PROCEDURE: XR HIP LT 2-3V W/PELVIS CLINICAL INDICATION: LT HIP PAIN COMPARISON: HIP2R HIP-2 VIEWS-RT from 11/27/2012 FINDINGS: Mild osteoarthritic changes present involving hips. No fracture or dislocation. No lytic blastic change. IMPRESSION: Mild osteoarthritis of the hips Dictated by: Edward Barker MD 10/01/2019 13:50 Electronically signed by Edward Barker MD in [facility] 10/01/2019 13:50
== END ==
PROVIDERS: PCP Family Medicine; Visit Provider Family Medicine
DX: M25.562 Pain in left knee (principal); M25.552 Pain in left hip
CPT/HCPCS: 73502; 73562

== ENCOUNTER 2019-12-01 12:37 | Day surgery (SDC) | payer MEDICARE, OTHER, SELFPAY ==
[2019-11-30 13:40] VITALS: BMI 36.1
[2019-12-01 12:59] VITALS: BP 133/66; PULSE 76; RESP 18; TEMP 36.6; O2SAT 98
[2019-12-01 13:10] LABS: POC Glucose,Bedside 114 (70-110)
[2019-12-01 14:31] VITALS: BP 116/63; PULSE 71; RESP 18; TEMP 36.7; O2SAT 92
== END 2019-12-01 14:40 | disposition home or self-care (01) ==
LOC: OR 12:39
PROVIDERS: PCP Family Medicine
DX: H04.563 Stenosis of bilateral lacrimal punctum (principal); E11.9 Type 2 diabetes mellitus without complications; Z79.899 Other long term (current) drug therapy
CPT/HCPCS: 68440; 82962

== ENCOUNTER → 2019-12-08 13:53 | Outpatient (POV) | payer MEDICARE, OTHER, SELFPAY | DX: Z00.00 Encounter for general adult medical examination without abnormal findings (principal) ==

== ENCOUNTER → 2019-12-14 14:27 | Outpatient (CLI) | payer MEDICARE, OTHER, SELFPAY ==
[2019-12-14 14:32] LABS: Microscopic, Urine URINE MICROSCOPIC (MICROSCOPIC)
[2019-12-14 15:25] LABS: Basophils # 0.1 K/mm3 (0-0.2); Basophils % 0.7 % (0.1-2.0); Eosinophils # 0.6 K/mm3 (0.0-0.4); Eosinophils % 7.4 % (0.1-12.0); Hematocrit 41.3 % (42.0-52.0); Hemoglobin 12.8 g/dL (14.1-18.0); Lymphocytes # 1.8 K/mm3 (0.7-4.5); Lymphocytes % 23.2 % (10-50); Mean Corpuscular Hemoglobin 27.6 pg (27.0-31.2); Mean Corpuscular Volume 89.1 fl (80-94); Monocytes # 0.5 K/mm3 (0.1-1.0); Monocytes % 6.4 % (1.7-9.3); Neutrophils # 4.7 K/mm3 (1.8-7.8); Neutrophils % 62.4 % (37.0-80.0); Platelet Count 177 K/mm3 (142-424); Red Blood Count 4.64 M/mm3 (4.60-6.20); Red Cell Distribution Width 15.7 % (11.5-17.5); White Blood Count 7.6 K/mm3 (4.8-10.8)
[2019-12-14 15:37] LABS: Appearance,Urine CLEAR (Clear); Bilirubin,Urine Negative (Negative); Blood, Urine Negative (Negative); Color,Urine YELLOW (Yellow); Glucose,Urine (UA) TRACE (Negative); Ketones,Urine Negative (Negative); Leukocyte Esterase,Urine Negative (Negative); Nitrate,Urine Negative (Negative); PH,Urine 5.5 (5.0-8.5); Protein,Urine Negative (Negative); Urobilinogen,Urine 0.2 EU/dl (0.2)
[2019-12-14 15:49] LABS: Creatinine,Urine Random 78 mg/dL (Not Estab.)
[2019-12-14 15:50] LABS: WBC,Urine Occasional #/hpf (0-3)
[2019-12-14 15:51] LABS: Squamous Epithelial Cell,Urine Occasional #/hpf (0-5)
[2019-12-14 17:05] LABS: Albumin Level 4.5 g/dl (3.5-5.0); Anion Gap 11.5 mEq/L (5-15); Blood Urea Nitrogen 28 mg/dl (9-20); Calcium 9.1 mg/dl (8.4-10.2); Carbon Dioxide 37 mmol/L (22.0-30.0); Chloride 92 mmol/L (98-107); Estimated Glomerular Filt Rate 51 ml/min (>60); GFR (African American) 61 ML/MIN (>60); Glucose 238 mg/dl (74-100); Phosphorous 2.9 mg/dl (2.5-4.5); Potassium 4.5 mmoL/L (3.5-5.1); Sodium 136 mmol/L (136-145)
== END ==
PROVIDERS: Visit Provider Internal Medicine Nephrology
DX: N18.3 Chronic kidney disease, stage 3 (moderate) (principal)
CPT/HCPCS: 36415; 80069; 81001; 82570; 84155; 85025

== ENCOUNTER → 2019-12-23 13:29 | Outpatient (POV) | payer MEDICARE, OTHER, SELFPAY | PROVIDERS: PCP Internal Medicine Nephrology; Visit Provider Internal Medicine Nephrology | DX: Z00.00 Encounter for general adult medical examination without abnormal findings (principal) ==

== ENCOUNTER → 2021-01-22 09:43 | Outpatient (CLI) | payer MEDICARE, OTHER, SELFPAY ==
[2021-01-22 09:49] LABS: Microscopic, Urine URINE MICROSCOPIC (MICROSCOPIC)
[2021-01-22 10:54] LABS: Appearance,Urine CLEAR (Clear); Bilirubin,Urine Negative (Negative); Blood, Urine Negative (Negative); Color,Urine YELLOW (Yellow); Glucose,Urine (UA) 1+ (Negative); Ketones,Urine Negative (Negative); Leukocyte Esterase,Urine Negative (Negative); Nitrate,Urine Negative (Negative); Protein,Urine Negative (Negative); Urobilinogen,Urine 0.2 EU/dl (0.2)
[2021-01-22 10:55] LABS: Anion Gap 16.7 mEq/L (5-15); Blood Urea Nitrogen 29 mg/dl (9-20); Calcium 9.5 mg/dl (8.4-10.2); Carbon Dioxide 30 mmol/L (22.0-30.0); Chloride 100 mmol/L (98-107); Estimated Glomerular Filt Rate 43 ml/min (>60); GFR (African American) 52 ML/MIN (>60); Glucose 271 mg/dl (74-100); Potassium 4.7 mmoL/L (3.5-5.1); Sodium 142 mmol/L (136-145)
[2021-01-22 11:07] LABS: Intact Parathyroid Hormone 247.5 pg/mL (7.5-53.5)
[2021-01-22 11:09] LABS: Squamous Epithelial Cell,Urine Occasional #/hpf (0-5)
[2021-01-22 11:12] LABS: 25-OH Vitamin D, Total 55.5 ng/mL (30-100); Creatinine,Urine Random 24 mg/dL (Not Estab.)
[2021-01-23 13:48] LABS: Basophils # 0.1 K/mm3 (0-0.2); Basophils % 1.8 % (0.1-2.0); Eosinophils # 0.5 K/mm3 (0.0-0.4); Eosinophils % 7.6 % (0.1-12.0); Hematocrit 39.5 % (42.0-52.0); Hemoglobin 12.4 g/dL (14.1-18.0); Lymphocytes # 1.7 K/mm3 (0.7-4.5); Mean Corpuscular HGB Conc 31.4 g/dL (31.8-35.4); Mean Corpuscular Hemoglobin 29.7 pg (27.0-31.2); Mean Corpuscular Volume 94.5 fl (80-94); Mean Platelet Volume 10.9 fl (7.4-10.4); Monocytes # 0.4 K/mm3 (0.1-1.0); Monocytes % 5.3 % (1.7-9.3); Neutrophils # 4.3 K/mm3 (1.8-7.8); Neutrophils % 61.3 % (37.0-80.0); Platelet Count 162 K/mm3 (142-424); Red Blood Count 4.18 M/mm3 (4.60-6.20); Red Cell Distribution Width 16.3 % (11.5-17.5); White Blood Count 7.1 K/mm3 (4.8-10.8)
== END ==
PROVIDERS: Visit Provider Internal Medicine Nephrology
DX: N18.30 Chronic kidney disease, stage 3 unspecified (principal)
CPT/HCPCS: 36415; 80069; 81001; 82306; 82570; 83970; 84155; 85025

== ENCOUNTER → 2021-01-29 14:13 | Outpatient (POV) | payer MEDICARE, OTHER, SELFPAY | PROVIDERS: Visit Provider Internal Medicine Nephrology | DX: Z00.00 Encounter for general adult medical examination without abnormal findings (principal) ==

== ENCOUNTER → 2021-05-22 14:05 | Outpatient (CLI) | payer MEDICARE, OTHER, SELFPAY ==
--- NOTE | 2021-05-22 | XR_ITS ---
PROCEDURE: XR ANKLE RT MIN 3V CLINICAL INDICATION: JEAN IN RT ANKLE AND JOINTS OF RT FOOT COMPARISON: No exams were available for comparison FINDINGS: No fracture or dislocation. No lytic or blastic change. There is normal mineralization. The joint spaces are well-preserved. No significant degenerative/arthritic changes. No erosive changes evident. Other findings:There is a small os trigonum. A cystic area involves the navicular along its anterior aspect at 9 mm. There is a small calcaneal spur and calcaneal enthesophyte. IMPRESSION: Negative ankle. 9 mm cystic lesion of the navicular Dictated by: Edward Barker MD 05/22/2021 16:05 Edward Barker MD in [facility] 05/22/2021 16:05
--- NOTE | 2021-05-22 14:11 | XR_ITS ---
PROCEDURE: XR HIP RT 2-3V W/PELVIS CLINICAL INDICATION: RT HIP PAIN COMPARISON: CR XR HIP LT 2-3V W/PELVIS from 10/01/2019 CR XR HIP LT 2-3V W/PELVIS from 05/22/2021 FINDINGS: There are mild osteoarthritic changes of both hips. No acute fracture or dislocation is evident. No significant change from 10/01/2019. IMPRESSION: Mild bilateral osteoarthritis of the hips Dictated by: Edward Barker MD 05/22/2021 16:08 Edward Barker MD in [facility] 05/22/2021 16:08
--- NOTE | 2021-05-22 14:13 | XR_ITS ---
PROCEDURE: XR KNEE LT 4V CLINICAL INDICATION: LT ANTERIOR KNEE PAIN COMPARISON: CR XR KNEE LT 3V from 10/01/2019 FINDINGS: No fracture or dislocation. No lytic or blastic change. There is normal mineralization. The joint spaces are well-preserved. No significant degenerative/arthritic changes. No erosive changes evident. Other findings:Small knee joint effusion noted. There is generalized vascular calcification and there are surgical clips along the medial aspect of the calf proximally. IMPRESSION: No acute findings. Dictated by: Edward Barker MD 05/22/2021 16:06 Edward Barker MD in [facility] 05/22/2021 16:06
== END ==
PROVIDERS: PCP Family Medicine; Visit Provider Family Medicine
DX: M25.552 Pain in left hip (principal); M25.551 Pain in right hip; M25.571 Pain in right ankle and joints of right foot; M25.562 Pain in left knee
CPT/HCPCS: 73502; 73564; 73610

== ENCOUNTER → 2022-02-11 08:45 | Outpatient (CLI) | payer MEDICARE, OTHER, SELFPAY ==
[2022-02-11 10:29] LABS: Anion Gap 12.4 mEq/L (5-15); Blood Urea Nitrogen 39 mg/dl (9-20); Calcium 8.5 mg/dl (8.4-10.2); Carbon Dioxide 29 mmol/L (22.0-30.0); Chloride 101 mmol/L (98-107); Estimated Glomerular Filt Rate 30 ml/min (>60); GFR (African American) 36 ML/MIN (>60); Glucose 178 mg/dl (74-100); Potassium 4.4 mmoL/L (3.5-5.1); Sodium 138 mmol/L (136-145)
== END ==
PROVIDERS: Visit Provider Family Medicine
DX: E87.5 Hyperkalemia (principal); N18.32 Chronic kidney disease, stage 3b
CPT/HCPCS: 36415; 80048

== ENCOUNTER → 2022-02-18 08:59 | Outpatient (CLI) | payer MEDICARE, OTHER, SELFPAY ==
[2022-02-18 09:20] LABS: Microscopic, Urine URINE MICROSCOPIC (MICROSCOPIC)
[2022-02-18 09:52] LABS: Basophils % 0.8 % (0.1-2.0); Eosinophils # 0.4 K/mm3 (0.0-0.4); Eosinophils % 8.7 % (0.1-12.0); Hematocrit 28.6 % (42.0-52.0); Hemoglobin 9.6 g/dL (14.1-18.0); Lymphocytes # 1.2 K/mm3 (0.7-4.5); Lymphocytes % 29.7 % (10-50); Mean Corpuscular HGB Conc 33.5 g/dL (31.8-35.4); Mean Corpuscular Hemoglobin 30.8 pg (27.0-31.2); Mean Corpuscular Volume 92.2 fl (80-94); Mean Platelet Volume 9.4 fl (7.4-10.4); Monocytes # 0.3 K/mm3 (0.1-1.0); Monocytes % 6.2 % (1.7-9.3); Neutrophils # 2.2 K/mm3 (1.8-7.8); Neutrophils % 54.6 % (37.0-80.0); Platelet Count 161 K/mm3 (142-424); Red Cell Distribution Width 16.3 % (11.5-17.5); White Blood Count 4.1 K/mm3 (4.8-10.8)
[2022-02-18 09:58] LABS: Appearance,Urine CLEAR (Clear); Bilirubin,Urine Negative (Negative); Blood, Urine Negative (Negative); Color,Urine YELLOW (Yellow); Glucose,Urine (UA) 3+ (Negative); Ketones,Urine Negative (Negative); Leukocyte Esterase,Urine Negative (Negative); Nitrate,Urine Negative (Negative); Protein,Urine Negative (Negative); Urobilinogen,Urine 0.2 EU/dl (0.2)
[2022-02-18 10:10] LABS: Squamous Epithelial Cell,Urine Occasional #/hpf (0-5)
[2022-02-18 10:12] LABS: Creatinine,Urine Random 55 mg/dL (Not Estab.)
[2022-02-18 10:18] LABS: Albumin Level 4.2 g/dl (3.5-5.0); Anion Gap 12.6 mEq/L (5-15); Blood Urea Nitrogen 34 mg/dl (9-20); Calcium 8.9 mg/dl (8.4-10.2); Carbon Dioxide 31 mmol/L (22.0-30.0); Chloride 99 mmol/L (98-107); Estimated Glomerular Filt Rate 33 ml/min (>60); GFR (African American) 40 ML/MIN (>60); Glucose 237 mg/dl (74-100); Phosphorous 4.3 mg/dl (2.5-4.5); Potassium 4.6 mmoL/L (3.5-5.1); Sodium 138 mmol/L (136-145)
[2022-02-18 10:27] LABS: 25-OH Vitamin D, Total 51.2 ng/mL (30-100)
[2022-02-18 10:31] LABS: Intact Parathyroid Hormone 303.7 pg/mL (7.5-53.5)
== END ==
PROVIDERS: PCP Family Medicine; Visit Provider Internal Medicine Nephrology
DX: N18.30 Chronic kidney disease, stage 3 unspecified (principal); E55.9 Vitamin D deficiency, unspecified
CPT/HCPCS: 36415; 80069; 81001; 82306; 82570; 83970; 84155; 85025

== ENCOUNTER 2022-02-19 22:45 | Observation (INO) | payer MEDICARE, OTHER, SELFPAY ==
[2022-02-19 22:46] VITALS: BP 132/57; PULSE 66; RESP 14; TEMP 36.6; O2SAT 98; BMI 35.4
[2022-02-19 22:47] VITALS: BP 132/57; PULSE 63; RESP 17; O2SAT 100
--- NOTE | 2022-02-19 22:47 | ECG_ITS ---
APPROVED REPORT Exam: Resting ECG HR:68 bpm ECG Measurements Heart Rate 68 AXES VA 252 P 83 QRSd 107 QRS 5 QT 378 T 43 QTc 396 Conclusion SINUS RHYTHM WITH FIRST DEGREE AV BLOCK INDETERMINATE AXIS LOW QRS VOLTAGE IN PRECORDIAL LEADS [QRS DEFLECTION < 1.0 mV IN CHEST LEADS] INCOMPLETE RIGHT BUNDLE BRANCH BLOCK [90+ ms QRS Old anteroseptal changes ABNORMAL ECG UNCONFIRMED REPORT Electronically signed by : Crispin Mccartney MD 02/20/2022 17:56:26
--- NOTE | 2022-02-19 22:47 | XR_ITS ---
PROCEDURE INFORMATION: Exam: XR Chest Exam date and time: 02/19/2022 10:53 PM Age: 71 years old Clinical indication: Sternal or substernal pain; Prior surgery; Additional info: Chest pain TECHNIQUE: Imaging protocol: XR of the chest. Views: 1 view. COMPARISON: CHESTWO CT chest wo con 03/18/2018 1:53 PM FINDINGS: Lungs: Unremarkable. No consolidation. Pleural spaces: Unremarkable. No pleural effusion. No pneumothorax. Heart/Mediastinum: Enlargement of the cardiac silhouette. Bones/joints: Prior median sternotomy wires. Degenerative spondylosis, rotoscoliosis and facet arthropathy within the spine. Acromioclavicular arthropathy. IMPRESSION: No evidence of acute cardiopulmonary process. Cardiomegaly.
--- NOTE | 2022-02-19 22:48 | HMH.EDGENADL ---
ED Disposition Clinical Impression: Epigastric abdominal pain CHF exacerbation Qualifiers: Heart failure type: unspecified Qualified Code(s): I50.9 - Heart failure, unspecified Disposition: Admitted as Observation Condition on Discharge: Fair Time of Disposition: 01:49 - Critical Care Critical Care Time: No Attestation: On , the high probability of a clinically significant, sudden or life threatening deterioration of the following system(s) required my full and direct attention, intervention and personal management. The time I documented below is in addition to time spent performing reported procedures but includes the following listed in this critical care notation. Medical Decision Making - Medical Records Medical records reviewed: Yes: I reviewed the patient's medical records. - To Inquiry Pt receiving controlled substance: No Vital Signs: 02/19/22 22:46 02/19/22 22:47 02/19/22 23:01 Temperature 97.8 F Temperature Source Oral Pulse Rate 63 66 Pulse Rate [Left] 66 Respiratory Rate 14 17 16 Blood Pressure 132/57 L 125/63 Blood Pressure [Right Arm] 132/57 L Blood Pressure Mean [Right Arm] 82 02 Sat by Pulse Oximetry 98 100 99 Oxygen Delivery Method Nasal Cannula Nasal Cannula Nasal Cannula Oxygen Flow Rate (LPM) 2 2 2 02/19/22 23:30 Temperature Temperature Source Pulse Rate 65 Pulse Rate [Left] Respiratory Rate 15 Blood Pressure 116/53 L Blood Pressure [Right Arm] Blood Pressure Mean [Right Arm] 02 Sat by Pulse Oximetry 98 Oxygen Delivery Method Nasal Cannula Oxygen Flow Rate (LPM) 2 - Lab Data Lab Results 02/19/22 22:45: WBC 4.9, RBC 3.15 L, Hgb 9.8 L, Hct 28.5 L, MCV 90.7, MCH 31.3 H, MCHC 34.5, RDW 16.3, Plt Count 177, MPV 9.7, Neut % (Auto) 52.3, Lymph % (Auto) 30.9, Banner % (Auto) 6.6, Eos % (Auto) 8.6, Baso % (Auto) 1.6, Neut # (Auto) 2.6, Lymph # (Auto) 1.5, Banner # (Auto) 0.3, Eos # (Auto) 0.4, Baso # (Auto) 0.1 02/19/22 22:45: D-Dimer 1.08 H 02/19/22 22:45: Sodium 138, Potassium 4.3, Chloride 96 L, Carbon Dioxide 33 H, Anion Gap 13.3, BUN 39 H, Creatinine 2.00 H, Estimated Creat Clear 54, Estimated GFR 33 L, Est GFR ( Amer) 40 L, Glucose 163 H, Calcium 8.9, Total Bilirubin 0.6, AST 23, ALT 18, Alkaline Phosphatase 63, Troponin I < 0.01, NT-Pro-B Natriuret Pep 1050 H, Total Protein 7.0, Albumin 4.4, Globulin 2.6, Albumin/Globulin Ratio 1.7, Lipase 173 Result diagrams: 02/19/22 22:45 02/19/22 22:45 Orders (Tests/Meds): ED MEDICATIONS Discontinued Medications Generic Name Dose Route Start Last Admin Trade Name Freq PRN Reason Stop Dose Admin Furosemide 40 mg 02/20/22 01:30 Furosemide 40mg/4ml Vial IV 02/20/22 01:31 ONCE ONE Iopamidol 100 ml 02/20/22 00:27 02/20/22 00:28 Iopamidol-370 (76%);100ml Bottle IV 02/20/22 00:28 100 ml ONCE ONE Administration Morphine Sulfate 4 mg 02/19/22 23:26 02/19/22 23:39 Morphine 4mg/Ml Syringe IV 02/19/22 23:27 4 mg ONCE ONE Administration Ondansetron HCl 4 mg 02/19/22 23:26 02/19/22 23:39 Ondansetron 4mg/2ml Vial IV 02/19/22 23:27 4 mg ONCE ONE Administration Sodium Chloride 500 ml 02/20/22 00:07 Sodium Chloride 0.9% 500ml Bag IV 02/20/22 00:08 ONCE ONE Sodium Chloride 50 ml 02/20/22 00:27 02/20/22 00:28 0.9 % Sodium Chloride 50 Ml Vial IV 02/20/22 00:28 50 ml ONCE ONE Administration Sodium Chloride 10 ml 02/20/22 00:27 02/20/22 00:28 Sodium Chloride 0.9% 10ml Syr (Rad Only) IV 02/20/22 00:28 10 ml ONCE ONE Administration ORDERS Category Date Time Status Rapid PCR Covid and Flu A/B Stat Lab 02/20/22 01:43 Ordered Troponin I Q3H Lab 02/20/22 02:00 Ordered Troponin I Q3H Lab 02/20/22 05:00 Ordered ECG Request by /Tree Stat Y 02/19/22 22:47 Ordered Medical Decision Narrative: In summary this is a 71-year-old male with history of CAD, CHF presenting to the emergency department with upper back, chest pain. Boy
[2022-02-19 22:58] LABS: Basophils # 0.1 K/mm3 (0-0.2); Basophils % 1.6 % (0.1-2.0); Eosinophils # 0.4 K/mm3 (0.0-0.4); Eosinophils % 8.6 % (0.1-12.0); Hematocrit 28.5 % (42.0-52.0); Hemoglobin 9.8 g/dL (14.1-18.0); Lymphocytes # 1.5 K/mm3 (0.7-4.5); Lymphocytes % 30.9 % (10-50); Mean Corpuscular HGB Conc 34.5 g/dL (31.8-35.4); Mean Corpuscular Hemoglobin 31.3 pg (27.0-31.2); Mean Corpuscular Volume 90.7 fl (80-94); Mean Platelet Volume 9.7 fl (7.4-10.4); Monocytes # 0.3 K/mm3 (0.1-1.0); Monocytes % 6.6 % (1.7-9.3); Neutrophils # 2.6 K/mm3 (1.8-7.8); Neutrophils % 52.3 % (37.0-80.0); Platelet Count 177 K/mm3 (142-424); Red Blood Count 3.15 M/mm3 (4.60-6.20); Red Cell Distribution Width 16.3 % (11.5-17.5); White Blood Count 4.9 K/mm3 (4.8-10.8)
[2022-02-19 23:01] VITALS: BP 125/63; PULSE 66; RESP 16; O2SAT 99
[2022-02-19 23:30] VITALS: BP 116/53; PULSE 65; RESP 15; O2SAT 98
[2022-02-19 23:30] LABS: Alanine Aminotransferase 18 U/L (12-78); Albumin Level 4.4 g/dl (3.5-5.0); Albumin/Globulin Ratio 1.7 (1.1-1.8); Alkaline Phosphatase 63 U/L (38-126); Anion Gap 13.3 mEq/L (5-15); Aspartate Amino Transferase 23 U/L (17-59); Bilirubin,Total 0.6 mg/dl (0.2-1.3); Blood Urea Nitrogen 39 mg/dl (9-20); Calcium 8.9 mg/dl (8.4-10.2); Carbon Dioxide 33 mmol/L (22.0-30.0); Chloride 96 mmol/L (98-107); Creatinine Clearance Estimated 54 mL/min (50-200); Estimated Glomerular Filt Rate 33 ml/min (>60); GFR (African American) 40 ML/MIN (>60); Globulin 2.6 g/dL (1.3-3.2); Glucose 163 mg/dl (74-100); Lipase 173 U/L (23-300); Potassium 4.3 mmoL/L (3.5-5.1); Sodium 138 mmol/L (136-145)
[2022-02-19 23:34] LABS: D-Dimer 1.08 ug/mL (0.0-0.5)
[2022-02-19 23:43] LABS: NT Pro Brain Natriuretic Pep. 1050 pg/mL (0-125)
[2022-02-19 23:49] LABS: Troponin I < 0.01 ng/ml (0.00-0.034)
[2022-02-20] VITALS (10 sets, daily range): BP systolic 98–116; BP diastolic 42–59; PULSE 62–68; RESP 12–20; TEMP 36.6–36.8; O2SAT 97–99; BMI 35.6
--- NOTE | 2022-02-20 | CT_ITS ---
PROCEDURE INFORMATION: Exam: CTA Chest With Contrast Exam date and time: 02/20/2022 12:11 AM Age: 71 years old Clinical indication: Pain; Radiating; Prior surgery; Additional info: Chest/ back pain TECHNIQUE: Imaging protocol: Computed tomographic angiography of the chest with contrast. 3D rendering (Not supervised by radiologist): MIP and/or 3D reconstructed images were created by the technologist. Radiation optimization: All CT scans at this facility use at least one of these dose optimization techniques: automated exposure control; mA and/or kV adjustment per patient size (includes targeted exams where dose is matched to clinical indication); or iterative reconstruction. Contrast material: ISOVUE; Contrast volume: 100 ml; Contrast route: INTRAVENOUS (IV); COMPARISON: CHESTWO CT chest wo con 03/18/2018 1:53 PM FINDINGS: Pulmonary arteries: No evidence for filling defect within the pulmonary arterial tree to suggest embolic phenomenon. Enlargement of the pulmonary trunk, main right and left pulmonary arteries suggesting chronic pulmonary hypertension. Aorta: No evidence of aortic dissection. Lungs: Multiple subcentimeter lung nodule seen on the prior study once again identified and either stable or smaller suggesting that they were in fact inflammatory nodules and not malignant. Lungs are negative for new dominant mass or airspace consolidation. There is mild diffuse interstitial thickening of the lungs patchy ground-glass infiltrates which are likely atelectatic. Pleural spaces: Unremarkable. No pneumothorax. No pleural effusion. Heart: Heart is enlarged. Mediastinal space: Severe mucosal thickening throughout the thoracic esophagus which is probably due to chronic esophagitis with infection and malignancy to be excluded. Further workup is needed. Consider endoscopic or double-contrast fluoroscopic studies. Lymph nodes: Unremarkable. No enlarged lymph nodes. Kidneys and ureters: Bosniak 1 cyst left kidney measures 2.4 cm. Bones/joints: Prior median sternotomy wires and pericardial clips. Degenerative spondylosis, rotoscoliosis and increased kyphosis of thoracic spine. Diffuse idiopathic skeletal hyperostosis. Anterior fusion plates cervical spine. Diffuse bone demineralization. Soft tissues: Unremarkable. Other findings: Scattered calcified granulomas. IMPRESSION: No evidence for pulmonary embolism or aortic dissection. Enlargement of the pulmonary trunk, main right and left pulmonary arteries suggesting chronic pulmonary hypertension. Severe mucosal thickening throughout the thoracic esophagus which is probably due to chronic esophagitis with infection and malignancy to be excluded. Further workup is needed. Consider endoscopic or double-contrast fluoroscopic studies. Multiple subcentimeter lung nodule seen on the prior study once again identified and either stable or smaller suggesting that they were in fact inflammatory nodules and not malignant. Mild diffuse interstitial thickening of the lungs patchy with ground-glass infiltrates which are likely atelectatic. COMMENTS: Consistent with the [employer]'s Incidental Findings Committee white paper (J Am Shakila Radiol 2018): Any incidental renal lesion less than 1 cm or classified as too small to characterize, or any incidental cystic renal lesion characterized as simple-appearing, is likely benign. No follow-up imaging is recommended for these lesions per consensus recommendations based on imaging criteria.
--- NOTE | 2022-02-20 00:02 | PC.NURSE ---
Pt & had several questions for MD. She was explaining them and offering reassurances. MD is aware of creatinine and GFR, would like to proceed with CTA chest, radiology notified.
--- NOTE | 2022-02-20 01:45 | PC.NURSE ---
ED speaking to Dr Frank at this time
[2022-02-20 01:58] LABS: Coronavirus 19, PCR Not Detected (NotDetected); Influenza A, PCR Not Detected (NotDetected); Influenza B, PCR Not Detected (NotDetected)
[2022-02-20 02:23] LABS: Troponin I < 0.01 ng/ml (0.00-0.034)
--- NOTE | 2022-02-20 02:48 | PC.NURSE ---
PT ARRIVED TO FLOOR VIA W/C FROM ED W/STAFF @ 1440
--- NOTE | 2022-02-20 02:52 | CA_ITS ---
APPROVED REPORT EXAM: Comprehensive 2D, Doppler, and color-flow Echocardiogram [employer] Operator: Jennifer Kimbrough CRT Ht: 5 ft 9 in Wt: 240lbs BSA: 2.23 BP: 116/53 mmHg Indications: Chest Pain, Congestive Heart Failure, COPD, Murmur, Shortness of Breath, Obesity, CAD, Hyperlipidemia, Hypertension/HDD, cabg x 2, stents 2D Dimensions LVOT 2.10 cm (M/F) 1.5-2.5 LA Volume 42.40 mL LA Volume Index 19.00 mL/m2 (M/F) 16-34 M-Mode Dimensions RVDd 2.90 cm (0.9-2.6) LA Diam 4.20 cm (1.9-4.0) LVDd 4.99 cm (3.5-5.7) Ao Diam 4.08 cm (2.0-3.7) LVDs 3.44 cm (3.5-5.7) IVSd 1.77 cm (0.6-1.1) PWd 0.99 cm (0.6-1.1) EF (Teich) 58.50% FS 31.10% EDV (Teich) 117.70 mL TAPSE 1.13 (<1.7) ESV (Teich) 48.80 mL LV Diastology E Decel Time 130.00 (160-240 msec) E/A Ratio 1.37 MED E' 6.70 (< 7 cm/sec) MED A' 11.60 cm/s E'/MED E' Ratio 10.91 (>14) LAT E' 8.80 (<10 cm/sec) LAT A' 6.90 cm/s E/LAT E' Ratio 8.31 (>14) Aortic Valve AO Peak GR. 6.90 mmHg Mitral Valve MV A Velocity 53.00 (40-130 cm/s) E/A Ratio 1.37 MV Decel. Time 130.00 (160-240 ms) Pulmonary Valve PV Peak Velocity 203.00 (50-150 cm/s) Tricuspid Valve TR P. Velocity 247.00 cm/s RAP Estimate 10.00 mmHg RVSP 34.40 mmHg Left Ventricle Technically difficult study because of the patient factors and poor acoustic windows. Endocardial surfaces are poorly visualized. Left atrium is mildly enlarged, left ventricle is normal size, mild concentric left ventricular hypertrophy, estimated ejection fraction 50% with no regional wall motion abnormality, diastolic parameters are inconclusive in the study. Right Ventricle Right atrium and right ventricle are mildly enlarged with normal contractility. Aortic Valve Aortic valve is minimally thickened and fibrosed there is no aortic stenosis or aortic insufficiency. Mitral Valve Mitral valve grossly normal, there is trace mitral regurgitation. Tricuspid Valve Tricuspid valve grossly normal, there is trace tricuspid regurgitation, tricuspid regurgitation jet velocity is inadequate for calculation of the right ventricular systolic pressure. Pulmonic Valve Pulmonic valve is poorly visualized. Great Vessels Aortic root is normal size. Inferior vena cava is poorly visualized. Pericardium No significant pericardial effusion noted. Conclusion 1. Technically difficult study because of the patient factors and poor acoustic windows. 2. Biatrial enlargement, normal left ventricular size, mild concentric left ventricular hypertrophy, estimated ejection fraction approximately 50% with no obvious regional wall motion abnormality, diastolic parameters are inconclusive. 3. Mildly enlarged right ventricle with normal contractility. 4. Trace mitral and tricuspid regurgitation. 5. No significant pericardial effusion noted. 6. Inferior vena cava is poorly visualized. Electronically signed by : Dmitry Moffett MD 02/20/2022 22:15:56
--- NOTE | 2022-02-20 07:09 | P.CONPHA_ITS ---
[facility] Pharmacy VTE Monitoring - Patient Demographics Admission date: 02/19/22 Report Date: 02/20/22 Time: 07:09 Allergies/Adverse Reactions: Patient Allergies No Known Allergies Allergy (Verified 11/30/19 13:38) Height: 1.75 m Weight: 109.044 kg Patient Problems: Current Active Problems CHF exacerbation (Acute) Epigastric abdominal pain (Acute) - VTE Risk Labs: VTE Related Lab Results Hgb 9.8 g/dL (14.1-18.0) L 02/19/22 22:45 Hct 28.5 % (42.0-52.0) L 02/19/22 22:45 Plt Count 177 K/mm3 (142-424) 02/19/22 22:45 BUN 39 mg/dl (9-20) H 02/19/22 22:45 Creatinine 2.00 mg/dl (0.66-1.25) H 02/19/22 22:45 Estimated Creat Clear 54 mL/min (50-200) 02/19/22 22:45 Was VTE Risk Assessment Performed: Yes VTE Score: 5 VTE Risk Level: Low Risk - Prophylaxis VTE Prophylaxis Ordered?: Yes Types of VTE Prophylaxis: TEDS Knee High Location of Applied Device: Bilateral Lower Extremeties
--- NOTE | 2022-02-20 07:31 | HMH.PHAINT ---
MEDICATION RECONCILIATION COMPLETED ON PATIENT USING EXTERNAL FILL HISTORY FROM PHARMACY. -REINALDO MENDEZ, MIKAYLAD
[2022-02-20 08:20] LABS: Anion Gap 10.4 mEq/L (5-15); Blood Urea Nitrogen 38 mg/dl (9-20); Calcium 8.3 mg/dl (8.4-10.2); Carbon Dioxide 30 mmol/L (22.0-30.0); Chloride 98 mmol/L (98-107); Creatinine Clearance Estimated 57 mL/min (50-200); Estimated Glomerular Filt Rate 35 ml/min (>60); GFR (African American) 43 ML/MIN (>60); Glucose 193 mg/dl (74-100); Potassium 4.4 mmoL/L (3.5-5.1); Sodium 134 mmol/L (136-145)
--- NOTE | 2022-02-20 09:20 | HMH.CNCARD ---
History of Present Illness Consult date: 02/20/22 Requesting physician: Arcadio Golden Consult reason: chest pain Chief complaint: Back and chest pain Additional Medical History:: 1. CAD, followed by cardiology in [place] (Siddhartha) A. History of coronary artery bypass grafting, age 52 B. Redo coronary artery Bypass grafting, age 57 2. Hypertension 3. Hyperlipidemia 4. Diabetes mellitus, treated for about 10 years 5. History of tobacco use, discontinued, followed by pulmonology in [place] ([place]) A. COPD with chronic oxygen use 6. Pulmonary hypertension with enlargement of the main pulmonary trunk, right and left pulmonary arteries on CTA of the chest 02/19/2022 A. Elevated D-dimer, 02/19/2022 with CTA of the chest negative for pulmonary embolus. 7. Chronic kidney disease, stage III, followed by nephrology in [place] 8. Degenerative disc disease of the spine, not a surgical candidate History of present illness: 71-year-old white male with multiple medical problems as noted above was at home last evening when he developed back pain in the lower rib cage/kidney area that progressed to include discomfort in the upper abdomen and lower chest area. Symptoms did not improve with resting/lying down and he decided to come to the emergency department for further evaluation. He states this episode did not feel anything like his prior cardiac or CHF episodes but he was concerned and decided to seek attention. EKG was without acute changes. Initial troponin was normal. Elevated D-dimer prompted CTA of the chest showing no evidence of pulmonary embolus. Symptoms resolved with 1 dose of IV morphine. Elevated BNP was noted. Patient was given IV Lasix in the ER along with the IV morphine. Patient has remained asymptomatic overnight. Troponins have returned normal. Echocardiogram was performed this morning showing ejection fraction of 50-55% which consistent with prior echocardiogram in 2018. Patient feels stable and is eager to go home. 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 [facility] History Medical History: Reports:: Carotid Stenosis, Congestive Heart Failure, Chronic Obstructive Pulmonary Disease (COPD), Coronary Artery Disease, Diabetes Mellitus Type 2, Hyperlipidemia, Hypertension, Myocardial Infarction Denies:: Cancer, Diabetes Mellitus Type 1, Internal Pacemaker, MRSA, Seizures *Have you ever received a pneumonia vaccine?: Yes *Have you received a flu vaccine this season?: Yes Other Medical History: Reports: Arthritis Other Surgeries: Yes: CABG (X2), Cardiac Catheterization, Colonoscopy, Coronary Stent, Open Heart Surgery (x2). No: Pacemaker. Comment Only: Other (back surgery x 4) Amputation: No Fractures: No - *Social History Last grade of school completed: High school graduate Smoking Status: Never smoker Tobacco Type: cigarettes Alcohol Intake: never *Occupational Status:: retired Housing: house Household Members: spouse *Travel in the last 8 weeks: None Family Hx:: Unable to obtain Meds Home Medications Medication Instructions Recorded Confirmed Type Aspirin [Adult Low Dose Aspirin EC] 81 mg PO DAILY 10/27/17 02/20/22 History carvediloL [Carvedilol 25mg Tab] 25 mg PO BID 10/27/17 02/20/22 History Clopidogrel Bisulfate [Plavix 75mg 75 mg PO DAILY 11/30/19 02/20/22 History Tab] Bumetanide 2 mg PO DAILY 02/20/22 02/20/22 History Cholecalciferol (Vitamin D3) 2,000 units PO DAILY 02/20/22 02/20/22 History [Vitamin D3] Colchicine 0.6 mg PO DAILY 02/20/22 02/20/22 History Empagliflozin [Jardiance] 25 mg PO DAILY 02/20/22 02/20/22 History Gabapentin [Neurontin 300mg 300 mg PO BID 02/20/22 02/20/22 History capsule] Liraglutide [Victoza 3-Barrington] 1.8 mg SQ DAILY 02/20/22 02/20/22 History Pantoprazole Sodium 40 mg PO DAILY 02/20/22 02/20/22 History Potassium Chloride [Micro-K 10mEq 10 meq PO BID 02/20/22 02/20/22 History cap]
--- NOTE | 2022-02-20 09:46 | HMH.HPDC ---
General - General Admission date:: 02/20/22 Discharge date: 02/20/22 *Admission Date: 02/19/22 *Chief complaint: cp *History of present illness: 71-year-old male presented to ED with c/o back,rib,and chest pain. Pt states he developed back pain in the lower rib cage/kidney area that progressed to include discomfort in the upper abdomen and lower chest area. Pt states these did not improve with lying down and he decided to come to the emergency department for further evaluation. He states this episode did not feel anything like his prior cardiac or CHF episodes but he was concerned and decided to seek attention. Pt states symptoms resolved with 1 dose of IV morphine and his prior heart issues did not improve with morphine. Pt was admitted for monitoring of labs,vital,symptoms and cardiology consult. [facility] History I have reviewed the patient's past medical history: Yes Medical History: Reports:: Carotid Stenosis, Congestive Heart Failure, Chronic Obstructive Pulmonary Disease (COPD), Coronary Artery Disease, Diabetes Mellitus Type 2, Hyperlipidemia, Hypertension, Myocardial Infarction Denies:: Cancer, Diabetes Mellitus Type 1, Internal Pacemaker, MRSA, Seizures *Have you ever received a pneumonia vaccine?: Yes *Have you received a flu vaccine this season?: Yes Other Medical History: Reports: Arthritis Other Surgeries: Yes: CABG (X2), Cardiac Catheterization, Colonoscopy, Coronary Stent, Open Heart Surgery (x2). No: Pacemaker. Comment Only: Other (back surgery x 4) Amputation: No Fractures: No - *Social History Last grade of school completed: High school graduate Smoking Status: Never smoker Tobacco Type: cigarettes Alcohol Intake: never *Occupational Status:: retired Housing: house Household Members: spouse *Travel in the last 8 weeks: None Family Hx:: Unable to obtain Review of Systems - Review of Systems Review of systems:: pertinent systems reviewed and negative unless documented below - Constitutional Reports fatigue, Denies body ache(s), Denies weight gain - Eyes Denies blurry vision - ENT Denies bleeding gums, Denies dizziness, Denies headache(s) - *Cardiovascular Reports chest pain, Reports chest pain at rest, Reports shortness of breath, Denies irregular heart rhythm, Denies leg swelling, Denies leg sores, Denies lightheadedness, Denies rapid, pounding, or irregular heartbeat, Denies shortness of breath causing sudden awakening - *Respiratory Reports shortness of breath, Denies chest congestion - *Gastrointestinal Denies abdominal pain - *Genitourinary Denies urinary urgency - *Musculoskeletal Denies joint pain - Integumentary/Breasts Denies hair loss - *Neurologic Denies headache(s), Denies numbness - Psychiatric Denies abnormal sleep pattern - Endocrine Denies excessive sweating - Hematologic/Lymphatic Denies easy bruising - Allergic/Immunologic Denies itchy eyes Exam Vital signs and Labs for Last 24 Hours: Temp Pulse Resp BP Pulse Ox 97.9 F 62 16 102/53 L 97 02/20/22 08:00 02/20/22 08:00 02/20/22 08:00 02/20/22 08:00 02/20/22 08:00 Laboratory Results - last 24 hr 02/19/22 22:45: WBC 4.9, RBC 3.15 L, Hgb 9.8 L, Hct 28.5 L, MCV 90.7, MCH 31.3 H, MCHC 34.5, RDW 16.3, Plt Count 177, MPV 9.7, Neut % (Auto) 52.3, Lymph % (Auto) 30.9, Lowndes % (Auto) 6.6, Eos % (Auto) 8.6, Baso % (Auto) 1.6, Neut # (Auto) 2.6, Lymph # (Auto) 1.5, Lowndes # (Auto) 0.3, Eos # (Auto) 0.4, Baso # (Auto) 0.1 02/19/22 22:45: D-Dimer 1.08 H 02/19/22 22:45: Sodium 138, Potassium 4.3, Chloride 96 L, Carbon Dioxide 33 H, Anion Gap 13.3, BUN 39 H, Creatinine 2.00 H, Estimated Creat Clear 54, Estimated GFR 33 L, Est GFR ( Amer) 40 L, Glucose 163 H, Calcium 8.9, Total Bilirubin 0.6, AST 23, ALT 18, Alkaline Phosphatase 63, Troponin I < 0.01, NT-Pro-B Natriuret Pep 1050 H, Total Protein 7.0, Albumin 4.4, Globulin 2.6, Albumin/Globulin Ratio 1.7, Lipase 173 02/20/22 01:52: Troponin I < 0.01
--- NOTE | 2022-02-21 16:05 | CARE MANAGER ---
Contacted patient who states he had no further pain when he got home. He denies any questions or concerns and has an appointment with Dr. Quintero on Friday.
== END 2022-02-20 11:28 | disposition home or self-care (01) ==
LOC: ER 02-20 01:52 → 2ND 02-20 04:47
PROVIDERS: Admitting Provider Family Medicine; Emergency Provider Emergency Medicine; Visit Provider Family Medicine
DX: I50.9 Heart failure, unspecified (principal); R07.9 Chest pain, unspecified; I25.10 Atherosclerotic heart disease of native coronary artery without angina pectoris; I13.0 Hypertensive heart and chronic kidney disease with heart failure and stage 1 through stage 4 chronic kidney disease, or unspecified chronic kidney disease; J44.9 Chronic obstructive pulmonary disease, unspecified; Z99.81 Dependence on supplemental oxygen; E11.22 Type 2 diabetes mellitus with diabetic chronic kidney disease; Z95.1 Presence of aortocoronary bypass graft; N18.30 Chronic kidney disease, stage 3 unspecified; Z79.02 Long term (current) use of antithrombotics/antiplatelets; Z79.899 Other long term (current) drug therapy; Z79.84 Long term (current) use of oral hypoglycemic drugs; I65.23 Occlusion and stenosis of bilateral carotid arteries; Z20.822 Contact with and (suspected) exposure to COVID-19
CPT/HCPCS: 96365; G0378; 36415; 71045; 71275; 80048; 80053; 83690; 83880; 84484; 85025; 85378; 93005; 93306; 96375; 99285; C9803; J2405; Q9967; U0003; U0005

== ENCOUNTER → 2022-02-21 13:31 | Outpatient (POV) | payer MEDICARE, OTHER, SELFPAY | PROVIDERS: Visit Provider Internal Medicine Nephrology | DX: Z00.00 Encounter for general adult medical examination without abnormal findings (principal) ==

== ENCOUNTER → 2022-06-13 08:27 | Outpatient (CLI) | payer MEDICARE, OTHER, SELFPAY ==
[2022-06-13 08:35] LABS: Microscopic, Urine URINE MICROSCOPIC (MICROSCOPIC)
[2022-06-13 08:58] LABS: Hematocrit 32.1 % (42.0-52.0); Hemoglobin 10.5 g/dL (14.1-18.0); Mean Corpuscular HGB Conc 32.7 g/dL (31.8-35.4); Mean Corpuscular Hemoglobin 30.1 pg (27.0-31.2); Mean Corpuscular Volume 92.1 fl (80-94); Platelet Count 163 K/mm3 (142-424); Red Blood Count 3.49 M/mm3 (4.60-6.20); Red Cell Distribution Width 17.9 % (11.5-17.5); White Blood Count 5.4 K/mm3 (4.8-10.8)
[2022-06-13 09:12] LABS: Creatinine,Urine Random 46 mg/dL (Not Estab.)
[2022-06-13 09:21] LABS: Chloride 101 mmol/L (98-107); Sodium 142 mmol/L (136-145)
[2022-06-13 09:22] LABS: Albumin Level 4.5 g/dl (3.5-5.0)
[2022-06-13 09:24] LABS: Anion Gap 15.1 mEq/L (5-15); Carbon Dioxide 31 mmol/L (22.0-30.0); Potassium 5.1 mmoL/L (3.5-5.1)
[2022-06-13 09:25] LABS: Calcium 9.3 mg/dl (8.4-10.2); Glucose 189 mg/dl (74-100); Phosphorous 4.7 mg/dl (2.5-4.5)
[2022-06-13 09:37] LABS: Blood Urea Nitrogen 28 mg/dl (9-20); Estimated Glomerular Filt Rate 38 ml/min (>60); GFR (African American) 45 ML/MIN (>60)
[2022-06-13 10:02] LABS: Ferritin 13.2 ng/ml (17.9-464)
[2022-06-13 12:43] LABS: Appearance,Urine CLEAR (Clear); Bilirubin,Urine Negative (Negative); Blood, Urine Negative (Negative); Color,Urine YELLOW (Yellow); Glucose,Urine (UA) 3+ (Negative); Ketones,Urine Negative (Negative); Leukocyte Esterase,Urine Negative (Negative); Nitrate,Urine Negative (Negative); Protein,Urine Negative (Negative); Specific Gravity, Urine 1.015 (1.005-1.030); Urobilinogen,Urine 0.2 EU/dl (0.2)
[2022-06-13 12:55] LABS: Squamous Epithelial Cell,Urine Occasional #/hpf (0-5)
[2022-06-17 08:41] LABS: Total Iron Binding Capacity 397 ug/dL (261-462)
== END ==
PROVIDERS: PCP Family Medicine; Visit Provider Internal Medicine Nephrology
DX: N18.32 Chronic kidney disease, stage 3b (principal); D64.9 Anemia, unspecified
CPT/HCPCS: 36415; 80069; 81001; 82570; 82728; 83540; 83550; 84155; 85014; 85018; 85048; 85049

== ENCOUNTER → 2022-06-17 10:45 | Outpatient (POV) | payer MEDICARE, OTHER, SELFPAY | PROVIDERS: Visit Provider Internal Medicine Nephrology | DX: Z00.00 Encounter for general adult medical examination without abnormal findings (principal) ==

== ENCOUNTER → 2023-01-16 09:00 | Outpatient (CLI) | payer MEDICARE, OTHER, SELFPAY ==
[2023-01-16 09:40] LABS: Basophils % 0.8 % (0.1-2.0); Eosinophils # 0.5 K/mm3 (0.0-0.4); Eosinophils % 9.6 % (0.1-12.0); Hematocrit 33.1 % (42.0-52.0); Hemoglobin 11.1 g/dL (14.1-18.0); Lymphocytes # 1.4 K/mm3 (0.7-4.5); Lymphocytes % 25.7 % (10-50); Mean Corpuscular HGB Conc 33.7 g/dL (31.8-35.4); Mean Corpuscular Hemoglobin 30.8 pg (27.0-31.2); Mean Corpuscular Volume 91.5 fl (80-94); Mean Platelet Volume 8.7 fl (7.4-10.4); Monocytes # 0.3 K/mm3 (0.1-1.0); Monocytes % 5.5 % (1.7-9.3); Neutrophils # 3.1 K/mm3 (1.8-7.8); Neutrophils % 58.6 % (37.0-80.0); Platelet Count 151 K/mm3 (142-424); Red Blood Count 3.62 M/mm3 (4.60-6.20); White Blood Count 5.4 K/mm3 (4.8-10.8)
[2023-01-16 10:21] LABS: Albumin Level 4.6 g/dl (3.5-5.0); Anion Gap 14.9 mEq/L (5-15); Blood Urea Nitrogen 39 mg/dl (9-20); Calcium 8.3 mg/dl (8.4-10.2); Carbon Dioxide 28 mmol/L (22.0-30.0); Chloride 98 mmol/L (98-107); Estimated Glomerular Filt Rate 31 ml/min (>60); GFR (African American) 38 ML/MIN (>60); Glucose 182 mg/dl (74-100); Phosphorous 4.4 mg/dl (2.5-4.5); Potassium 4.9 mmoL/L (3.5-5.1); Sodium 136 mmol/L (136-145)
== END ==
PROVIDERS: PCP Family Medicine; Visit Provider Internal Medicine Nephrology
DX: N18.32 Chronic kidney disease, stage 3b (principal); D63.1 Anemia in chronic kidney disease
CPT/HCPCS: 36415; 80069; 85025

== ENCOUNTER → 2023-01-23 16:13 | Outpatient (POV) | payer MEDICARE, OTHER, SELFPAY | PROVIDERS: Visit Provider Internal Medicine Nephrology | DX: Z00.00 Encounter for general adult medical examination without abnormal findings (principal) ==

== ENCOUNTER → 2023-04-24 09:40 | Outpatient (CLI) | payer MEDICARE, OTHER, SELFPAY ==
[2023-04-24 10:14] LABS: Microscopic, Urine URINE MICROSCOPIC (MICROSCOPIC)
[2023-04-24 10:37] LABS: Hematocrit 32.9 % (42.0-52.0); Hemoglobin 10.8 g/dL (14.1-18.0); Mean Corpuscular HGB Conc 32.9 g/dL (31.8-35.4); Mean Corpuscular Hemoglobin 29.2 pg (27.0-31.2); Mean Corpuscular Volume 88.9 fl (80-94); Platelet Count 137 K/mm3 (142-424); Red Cell Distribution Width 15.6 % (11.5-17.5); White Blood Count 4.3 K/mm3 (4.8-10.8)
[2023-04-24 10:52] LABS: Appearance,Urine CLEAR (Clear); Bilirubin,Urine Negative (Negative); Blood, Urine Negative (Negative); Color,Urine YELLOW (Yellow); Glucose,Urine (UA) 2+ (Negative); Ketones,Urine Negative (Negative); Leukocyte Esterase,Urine Negative (Negative); Nitrate,Urine Negative (Negative); PH,Urine 5.5 (5.0-8.5); Protein,Urine Negative (Negative); Specific Gravity, Urine 1.015 (1.005-1.030); Urobilinogen,Urine 0.2 EU/dl (0.2)
[2023-04-24 11:08] LABS: Bacteria,Urine Trace /lpf; Squamous Epithelial Cell,Urine Occasional #/hpf (0-5)
[2023-04-24 11:10] LABS: Albumin Level 4.5 g/dl (3.5-5.0); Anion Gap 15.5 mEq/L (5-15); Blood Urea Nitrogen 37 mg/dl (9-20); Calcium 8.5 mg/dl (8.4-10.2); Carbon Dioxide 25 mmol/L (22.0-30.0); Chloride 103 mmol/L (98-107); Estimated Glomerular Filt Rate 21 ml/min (>60); GFR (African American) 25 ML/MIN (>60); Glucose 204 mg/dl (74-100); Phosphorous 4.6 mg/dl (2.5-4.5); Potassium 4.5 mmoL/L (3.5-5.1); Sodium 139 mmol/L (136-145)
[2023-04-24 16:36] LABS: Creatinine,Urine Random 52 mg/dL (Not Estab.)
== END ==
PROVIDERS: PCP Family Medicine; Visit Provider Internal Medicine Nephrology
DX: N18.32 Chronic kidney disease, stage 3b (principal)
CPT/HCPCS: 36415; 80069; 81001; 82570; 84155; 85014; 85018; 85048; 85049

== ENCOUNTER → 2023-05-05 14:58 | Outpatient (POV) | payer MEDICARE, OTHER, SELFPAY | PROVIDERS: Visit Provider Internal Medicine Nephrology | DX: Z00.00 Encounter for general adult medical examination without abnormal findings (principal) ==

== ENCOUNTER 2023-06-05 23:43 | Observation (INO) | payer MEDICARE, BC, SELFPAY ==
[2023-06-05 23:44] VITALS: BP 107/49; PULSE 78; RESP 18; TEMP 37; O2SAT 93; BMI 33.2
[2023-06-06] VITALS (9 sets, daily range): BP systolic 97–121; BP diastolic 51–75; PULSE 71–87; RESP 16–20; TEMP 36.4–37; O2SAT 91–97; BMI 33.8
--- NOTE | 2023-06-06 00:25 | XR_ITS ---
PROCEDURE INFORMATION: Exam: XR Left Knee Exam date and time: 06/06/2023 12:35 AM Age: 72 years old Clinical indication: Patient HX: Unable to straighten knee, left knee pain. Denies any injury; Additional info: Left knee pain, can't bear weight TECHNIQUE: Imaging protocol: Radiologic exam of the left knee. Views: 3 views. COMPARISON: CR XR KNEE LT 4V 05/22/2021 2:50 PM FINDINGS: Tubes, catheters and devices: There are surgical clips posterior to the proximal leg. Bones/joints: There is tricompartmental osteoarthritis with loss of joint space, subchondral sclerosis, and productive changes. No acute fracture or dislocation is identified. Soft tissues: Normal. Vasculature: Scattered atherosclerotic disease of the arterial vasculature. IMPRESSION: Degenerative disease without acute injury identified.
--- NOTE | 2023-06-06 00:25 | XR_ITS ---
PROCEDURE INFORMATION: Exam: XR Left Femur Exam date and time: 06/06/2023 12:31 AM Age: 72 years old Clinical indication: Patient HX: Unable to straighten knee, left knee pain. Denies any injury; Additional info: Left knee pain, can't bear weight TECHNIQUE: Imaging protocol: Radiologic exam of the left femur. Views: 2 views. COMPARISON: CR XR HIP LT 2-3V W/PELVIS 06/06/2023 12:29 AM FINDINGS: Bones/joints: There is moderate left hip osteoarthritis with joint space narrowing, productive changes, and subchondral sclerosis. There is diffuse osseous demineralization. No acute fracture or dislocation is identified. Soft tissues: Unremarkable. Vasculature: Scattered atherosclerotic disease of the arterial vasculature. IMPRESSION: Degenerative disease without acute injury identified.
--- NOTE | 2023-06-06 00:25 | XR_ITS ---
PROCEDURE INFORMATION: Exam: XR Left Hip Exam date and time: 06/06/2023 12:29 AM Age: 72 years old Clinical indication: Other: Unable to bare weight; Additional info: Left knee pain, can't bare weight TECHNIQUE: Imaging protocol: Radiologic exam of the left hip. Views: 2 or 3 views hip with pelvis when performed. COMPARISON: CR XR HIP LT 2-3V W/PELVIS 05/22/2021 2:50 PM FINDINGS: Bones/joints: There are partially visualized degenerative changes of the sacroiliac joints and lumbar spine as well as some degenerative disease of the pubic symphysis. There is [id number] bilateral hip osteoarthritis. No acute fracture or dislocation is identified. Soft tissues: Unremarkable. IMPRESSION: Degenerative disease without acute injury identified.
--- NOTE | 2023-06-06 00:26 | HMH.EDGENADL ---
Discharge Plan Disposition Patient Disposition: Admitted Chief Complaint: PAIN Prescriptions Prescriptions: No Action bumetanide 2 MG tablet 2 mg PO DAILY cholecalciferol (vitamin D3) 25 MCG tablet 2,000 units PO DAILY pantoprazole [address] for susp in packet 40 mg PO DAILY liraglutide 0.6 MG/0.1 ML pen injector 1.8 mg SQ DAILY Patient Comments: ADMINISTER 1.8 MG UNDER THE SKIN EVERY DAY colchicine (gout) 0.6 MG capsule 0.6 mg PO DAILY sacubitril-valsartan 1 EACH tablet 1 each PO BID Patient Comments: TAKE 1 TABLET BY MOUTH EVERY 12 HOURS potassium chloride 10 MEQ capsule, extended release 10 meq PO BID gabapentin 300 MG capsule 300 mg PO BID rosuvastatin 20 MG tablet 20 mg PO DAILY empagliflozin 25 MG tablet 25 mg PO DAILY Patient Comments: TAKE 1 TABLET BY MOUTH EVERY DAY carvedilol 25 MG Tablet 25 mg PO BID aspirin [Adult Low Dose Aspirin] [address] 81 mg PO DAILY clopidogrel 75 MG tablet 75 mg PO DAILY Clinical Impressions Clinical Impression: Acute pain of left knee Discharge ED Provider: Eliseo Constantino General Adult HPI General Chief complaint: PAIN Stated complaint: Left knee pain; no known accident Time Seen by Provider: 06/05/23 23:54 History of Present Illness HPI narrative: This is a 72-year-old male with history of hypertension, hyperlipidemia, COPD on 2 L nasal cannula at home, diabetes, CAD status post stenting and 5 vessel CABG, CKD, gout with chronic knee and foot pain presenting with left knee pain. Patient states that he was admitted to an outside hospital ([facility]) 05/31 through 06/02. Was on heparin bolus and drip at that time because they were concerned about heart troubles. Heart work-up was negative, patient was discharged home. Patient states that on the day of discharge from [facility], he was having trouble bearing weight on his left knee secondary to pain. Since that time, pain is gotten so severe that he is unable to bear weight at all. Denies fevers or chills, nausea or vomiting, redness, outward tenderness, injury, or any other concerns. Bearing weight, ranging knee makes it worse, resting makes it better. 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 Has chronic effusion in that knee and states it has not gotten any worse. Related Data Home Medications Medication Instructions Recorded Confirmed aspirin 81 mg tablet,delayed 81 mg PO DAILY Heart Health 10/27/17 02/20/22 release (Adult Low Dose Aspirin) carvedilol 25 mg tablet 25 mg PO BID Hypertension 10/27/17 02/20/22 clopidogrel 75 mg tablet 75 mg PO DAILY PLATLET INHIBITOR 11/30/19 02/20/22 bumetanide 2 mg tablet 2 mg PO DAILY Fluid 02/20/22 02/20/22 cholecalciferol (vitamin D3) 25 2,000 units PO DAILY Supplement 02/20/22 02/20/22 mcg (1,000 unit) tablet colchicine (gout) 0.6 mg capsule 0.6 mg PO DAILY GOUT 02/20/22 02/20/22 empagliflozin 25 mg tablet 25 mg PO DAILY Diabetes 02/20/22 02/20/22 gabapentin 300 mg capsule 300 mg PO BID Pain 02/20/22 02/20/22 liraglutide 0.6 mg/0.1 mL (18 mg/3 1.8 mg SQ DAILY Diabetes 02/20/22 02/20/22 mL) subcutaneous pen injector pantoprazole 40 mg granules 40 mg PO DAILY GERD 02/20/22 02/20/22 delayed-release for susp in packet potassium chloride 10 mEq 10 meq PO BID Supplement 02/20/22 02/20/22 capsule,extended release rosuvastatin 20 mg tablet 20 mg PO DAILY Cholesterol 02/20/22 02/20/22 sacubitril 24 mg-valsartan 26 mg 1 each PO BID Heart failure 02/20/22 02/20/22 tablet Allergies Allergy/AdvReac Type Severity Reaction Status Date / Time No Known Allergies Allergy Verified 11/30/19 13:38 [facility] Disclaimer: The information contained in this section may have been updated after the patient was seen, as this informa
--- NOTE | 2023-06-06 00:41 | PC.NURSE ---
pt to radiology
[2023-06-06 01:35] LABS: Basophils % 0.2 % (0.1-2.0); Eosinophils # 0.2 K/mm3 (0.0-0.4); Eosinophils % 2.5 % (0.1-12.0); Hematocrit 31.2 % (42.0-52.0); Hemoglobin 10.2 g/dL (14.1-18.0); Lymphocytes # 0.9 K/mm3 (0.7-4.5); Lymphocytes % 10.3 % (10-50); Mean Corpuscular HGB Conc 32.8 g/dL (31.8-35.4); Mean Corpuscular Hemoglobin 29.7 pg (27.0-31.2); Mean Corpuscular Volume 90.5 fl (80-94); Mean Platelet Volume 8.6 fl (7.4-10.4); Monocytes # 0.4 K/mm3 (0.1-1.0); Monocytes % 4.9 % (1.7-9.3); Neutrophils # 6.9 K/mm3 (1.8-7.8); Neutrophils % 82.1 % (37.0-80.0); Platelet Count 237 K/mm3 (142-424); Red Blood Count 3.45 M/mm3 (4.60-6.20); Red Cell Distribution Width 16.4 % (11.5-17.5); White Blood Count 8.5 K/mm3 (4.8-10.8)
[2023-06-06 01:43] LABS: Alanine Aminotransferase 45 U/L (12-78); Albumin Level 4.2 g/dl (3.5-5.0); Albumin/Globulin Ratio 1.2 (1.1-1.8); Alkaline Phosphatase 86 U/L (38-126); Anion Gap 15.1 mEq/L (5-15); Aspartate Amino Transferase 54 U/L (17-59); Bilirubin,Total 0.4 mg/dl (0.2-1.3); Blood Urea Nitrogen 34 mg/dl (9-20); Calcium 8.9 mg/dl (8.4-10.2); Carbon Dioxide 29 mmol/L (22.0-30.0); Chloride 98 mmol/L (98-107); Creatinine Clearance Estimated 38 mL/min (50-200); Estimated Glomerular Filt Rate 25 ml/min (>60); GFR (African American) 30 ML/MIN (>60); Globulin 3.6 g/dL (1.3-3.2); Glucose 219 mg/dl (74-100); Lactic Acid 1.3 mmol/L (0.7-2.1); Potassium 4.1 mmoL/L (3.5-5.1); Sodium 138 mmol/L (136-145); Total Protein,Serum 7.8 g/dl (6.3-8.2); Uric Acid 6.9 mg/dl (3.5-8.5)
--- NOTE | 2023-06-06 02:27 | PC.NURSE ---
OBSERVATION ADMISSION TO 205 WITH LEFT KNEE PAIN TO SERVICE OF HOSPITALIST.
[2023-06-06 02:34] LABS: Erythrocyte Sedimentation Rate > 140 mm/hr (0-20)
--- NOTE | 2023-06-06 03:23 | EXP.HP ---
History of Present Illness *Admission Date: 06/06/23 *Reason for visit:: left knee pain *History of present illness: This is a 72-year-old male with extensive PMHx, including but not limited to HTN, HLD, COPD on 2L oxygen, diabetes, CAD status post stenting and 5 vessel CABG, CKD, Gout with chronic knee and foot pain presenting with left knee pain. Patient states that he was admitted to an outside hospital ([facility]) 05/31 through 06/02. Patient states that on the day of discharge from [facility], he was having trouble bearing weight on his left knee secondary to pain. Since that time, pain is gotten so severe that he is unable to bear weight at all. Denies fevers or chills, nausea or vomiting, redness, outward tenderness, injury, or any other concerns. Bearing weight, ranging knee makes it worse, resting makes it better. Stated because of his CKD, make him difficult to stick to regular treatment. He presenting with chronic effusion in that knee and stated it has not gotten any worse. Patient admitted for further management. [facility] Disclaimer: The information contained in this section may have been updated after the patient was seen, as this information can be updated by other users. Medical History (Updated 06/06/23 @ 04:39 by oMrelia Suazo RN) Anginal pain Heart failure Myocardial infarct Spondylosis Type 2 diabetes mellitus Surgical History (Updated 06/06/23 @ 04:19 by Morelia Suazo RN) H/O heart artery stent History of heart bypass surgery History of open heart surgery Previous back surgery Social History (Updated 06/06/23 @ 04:20 by Morelia Suazo RN) Smoking Status: Former smoker years smoked: 40 how long ago did patient quit smokin years ago second hand exposure: No alcohol intake: never current occupational status: retired Travel in the last 8 weeks: None household members: spouse housing: house 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 10/27/17 06/06/23 History release (Adult Low Dose Aspirin) carvedilol 25 mg tablet 25 mg PO BID Hypertension 10/27/17 06/06/23 History clopidogrel 75 mg tablet 75 mg PO DAILY PLATLET INHIBITOR 11/30/19 06/06/23 History bumetanide 2 mg tablet 2 mg PO DAILY Fluid 02/20/22 06/06/23 History cholecalciferol (vitamin D3) 25 2,000 units PO DAILY Supplement 02/20/22 06/06/23 History mcg (1,000 unit) tablet colchicine (gout) 0.6 mg capsule 0.6 mg PO DAILY GOUT 02/20/22 06/06/23 History empagliflozin 25 mg tablet 25 mg PO DAILY Diabetes 02/20/22 06/06/23 History gabapentin 300 mg capsule 300 mg PO BID Pain 02/20/22 06/06/23 History liraglutide 0.6 mg/0.1 mL (18 mg/3 1.8 mg SQ DAILY Diabetes 02/20/22 02/20/22 History mL) subcutaneous pen injector pantoprazole 40 mg granules 40 mg PO DAILY GERD 02/20/22 06/06/23 History delayed-release for susp in packet potassium chloride 10 mEq 10 meq PO BID Supplement 02/20/22 06/06/23 History capsule,extended release rosuvastatin 20 mg tablet 20 mg PO DAILY Cholesterol 02/20/22 06/06/23 History sacubitril 24 mg-valsartan 26 mg 1 each PO BID Heart failure 02/20/22 06/06/23 History tablet allopurinol 100 mg tablet 100 mg PO DAILY gout 06/06/23 06/06/23 History nitroglycerin 0.4 mg sublingual 0.4 mg sublingual Q5MINP PRN Angina 06/06/23 06/06/23 History tablet New Prescriptions to Start Prescriptions: Allergies Allergy/AdvReac Type Severity Reaction Status Date / Time No Known Allergies Allergy Verified 11/30/19 13:38 Exam Data for Last 24 hours Vital signs and Labs for Last 24 Hours: Temp Pulse Resp BP Pulse Ox O2 Del Met
[2023-06-06 06:40] LABS: POC Glucose,Bedside 188 (70-110)
--- NOTE | 2023-06-06 09:10 | PC.NURSE ---
TECH NOTE; NOTIFIED NURSE OF BLOOD PRESSURE FOR 0800 VITAL SIGNS Myrna SOW, SRNA
--- NOTE | 2023-06-06 09:50 | HMH.OTEV ---
OT Inpatient Evaluation Rehab OT IP Evaluation Start: 06/06/23 03:22 Freq: ONCE Status: Active Protocol: Document 06/06/23 09:41 [facility] (Rec: 06/06/23 09:49 [facility] [id number]) Rehab OT IP Assessment Subjective History Pt oriented x 3 on arrival. Pt agreeable to engage in therapy evaluation. Pt admitted on 06/06/23 due to left knee pain. This is a 72- year-old male with extensive PMHx, including but not limited to HTN, HLD, COPD on 2L oxygen, diabetes, CAD status post stenting and 5 vessel CABG, CKD, Gout with chronic knee and foot pain presenting with left knee pain . Patient states that he was admitted to an outside hospital ([facility]) 05/31 through 06/02. Patient states that on the day of discharge from [facility], he was having trouble bearing weight on his left knee secondary to pain. Since that time, pain is gotten so severe that he is unable to bear weight at all. Prior to recent hospitalizations pt lived at home with his . Pt reports he was independent with all ADLs and IADLs. He did not require any type of AE during functional transfers. Pt also still drove. Subjective My pain is a 10/10 when I put weight on it. Pt resting in bed on arrival. Pt required min assist to go from supine to sititng at eob. Re-education provided for appropriate hand placement on bed rails to assist in sitting up in bed. Pt was able to stand from eob with Germain and rolling walker. Pt demonstrated fair static standing balance with rolling walker and Germain. Pt was able
--- NOTE | 2023-06-06 09:51 | HMH.PHAINT1 ---
Pharmacy Intervention Comments: MEDICATION RECONCILIATION COMPLETED ON PATIENT USING EXTERNAL FILL HISTORY FROM PHARMACY. -REINALDO MENDEZ, MIKAYLAD
--- NOTE | 2023-06-06 10:19 | SW/DCPLANNER ---
I spoke with patient and his this AM regarding plans once medically stable for discharge. Patient and stated that he was doing well at home prior to recent hospital admission in [place] last weekend. I discussed options of possible need for placement/home health services at this time of discharge. stated that they are not interested in any resources at this time. Patient has home O2 and portable tank through [facility] at this time. I will continue to follow up with patient/ during hospital admission. Discharge date is unknown at this time.
--- NOTE | 2023-06-06 10:34 | HMH.PTEV ---
Physical Therapy Evaluation Rehab PT IP Evaluation Start: 06/06/23 03:22 Freq: ONCE Status: Active Protocol: Document 06/06/23 10:29 [facility] (Rec: 06/06/23 10:34 [facility] [id number]) Subjective/History History History 72 yowm adm to [facility] with L knee pain. Pt oriented x 3 on arrival. Pt agreeable to engage in therapy evaluation. Pt admitted on 06/06/23 due to left knee pain. PMHx, including but not limited to HTN, HLD, COPD on 2L oxygen, diabetes, CAD status post stenting and 5 vessel CABG, CKD, Gout with chronic knee and foot pain presenting with left knee pain. Patient states that he was admitted to an outside hospital ([facility]) 05/31 through 06/02. Patient states that on the day of discharge from [facility], he was having trouble bearing weight on his left knee secondary to pain. Since that time, pain is gotten so severe that he is unable to bear weight at all. Prior to recent hospitalizations pt lived at home with his . Pt reports he was independent with all ADLs and IADLs. He did not require any type of AE during functional transfers. Pt also still drove. Subjective Subjective Pt c/o 10/10 pain in the L knee with any weight bearing on the L LE. Rehab PT IP Eval Objective Appearance Patient Behavior Appropriate Patient Orientation Person,Place,Time Difficulty following instructions none Speech Pattern Clear Ambulation Patient Able to Ambulate Yes Ambulation Observation IP General Gait Pattern Observation Antalgic Gait,Decrease Weight Bear (L),Decrease Stride Lngth (R),Decrease Stride Lngth (L) Ambulation Distance (feet) 4 Ambulation Assistive Device Rolling Walker Ambulation Ability Minimal x 1 (25% assist) Balance Ability to Arise Able, uses arm
--- NOTE | 2023-06-06 10:57 | EXP.ORTH.CON ---
History of Present Illness *Admission Date: 06/06/23 *History of present illness: This is a 72-year-old male with extensive PMHx, including but not limited to HTN, HLD, COPD on 2L oxygen, diabetes, CAD status post stenting and 5 vessel CABG, CKD, Gout with chronic knee and foot pain presenting with left knee pain. Patient states that he was admitted to an outside hospital ([facility]) 05/31 through 06/02. Patient states that on the day of discharge from [facility], he was having trouble bearing weight on his left knee secondary to pain. Since that time, pain is gotten so severe that he is unable to bear weight at all. Denies fevers or chills, nausea or vomiting, redness, outward tenderness, injury, or any other concerns. Bearing weight, ranging knee makes it worse, resting makes it better. Stated because of his CKD, make him difficult to stick to regular treatment. He presenting with chronic effusion in that knee and stated it has not gotten any worse. Patient admitted for further management. [facility] Disclaimer: The information contained in this section may have been updated after the patient was seen, as this information can be updated by other users. Medical History (Updated 06/06/23 @ 04:39 by Morelia Suazo RN) Anginal pain Heart failure Myocardial infarct Spondylosis Type 2 diabetes mellitus Surgical History (Updated 06/06/23 @ 04:19 by Morelia Suazo RN) H/O heart artery stent History of heart bypass surgery History of open heart surgery Previous back surgery Social History (Updated 06/06/23 @ 04:20 by Morelia Suazo RN) Smoking Status: Former smoker years smoked: 40 how long ago did patient quit smokin years ago second hand exposure: No alcohol intake: never current occupational status: retired Travel in the last 8 weeks: None household members: spouse housing: house 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 current occupational exposures/hazards: No caffeine: Yes Meds Home Medications and Allergies Home Medications Medication Instructions Recorded Confirmed Type aspirin 81 mg tablet,delayed 81 mg PO DAILY Heart Health 10/27/17 06/06/23 History release (Adult Low Dose Aspirin) carvedilol 25 mg tablet 25 mg PO BID High Blood Pressure 10/27/17 06/06/23 History clopidogrel 75 mg tablet 75 mg PO DAILY Platelet Inhibitor 11/30/19 06/06/23 History bumetanide 2 mg tablet 2 mg PO DAILY Fluid 02/20/22 06/06/23 History cholecalciferol (vitamin D3) 25 2,000 units PO DAILY Supplement 02/20/22 06/06/23 History mcg (1,000 unit) tablet colchicine (gout) 0.6 mg capsule 0.6 mg PO DAILY gout 02/20/22 06/06/23 History empagliflozin 25 mg tablet 25 mg PO DAILY Diabetes 02/20/22 06/06/23 History gabapentin 300 mg capsule 300 mg PO BID Pain 02/20/22 06/06/23 History potassium chloride 10 mEq 10 meq PO BID Supplement 02/20/22 06/06/23 History capsule,extended release rosuvastatin 20 mg tablet 20 mg PO DAILY Cholesterol 02/20/22 06/06/23 History allopurinol 100 mg tablet 100 mg PO DAILY gout 06/06/23 06/06/23 History nitroglycerin 0.4 mg sublingual 0.4 mg sublingual Q5MINP PRN Chest 06/06/23 06/06/23 History tablet Pain pantoprazole 40 mg tablet,delayed 40 mg PO DAILY Acid Reflux 06/06/23 06/06/23 History release sacubitril 24 mg-valsartan 26 mg 1 tab PO BID Heart Failure 06/06/23 06/06/23 History tablet (Entresto) semaglutide 0.25 mg or 0.5 mg (2 0.5 mg SQ WEEKLY Diabetes 06/06/23 06/06/23 History mg/3 mL) subcutaneous pen injector (Ozempic) New Prescriptions to Start Prescriptions: Allergies Allergy/AdvReac Type Severity Reaction Status Date / Time No Known Allergies Allergy Verified 11/30/19 13:38 Ortho Exam (Inpt) Vital signs and Labs for Last 24 Hours: Temp Pulse Resp BP Pulse Ox O2 Del Method O2 Flow Rate 98.6 F 71 18 97/58 L 91 L Nasal Cannula 2 06/06/23 08:00 06/06/23 08:00 06/06/23 08:00 06/06/23 08:00 06/06/23
[2023-06-06 11:58] LABS: POC Glucose,Bedside 284 (70-110)
--- NOTE | 2023-06-06 12:01 | EXP.CARD.CON ---
History of Present Illness History of Present Illness Consult date: 06/06/23 Requesting physician: Montrell Stewart Chief complaint: left knee pain History of present illness: This is a 72-year-old white gentleman who presented to the emergency department with complaints of left knee pain and being unable to bear weight on his left lower extremity. The patient has a past medical history of coronary artery disease status post 5 vessel coronary artery bypass grafting, diabetes, hypertension, hyperlipidemia, COPD, chronic kidney disease and gout. The patient states that he was admitted to [facility] from May 31 through June 02. The patient states on the day of discharge from [facility] he was having trouble bearing weight on his left knee secondary to left knee pain. Since that time the patient states that the pain has become severe and he was unable to bear weight or walk at all on his left lower extremity. He denies any chest pain or pressure. He denies any shortness of breath. He does report having edema in his left knee with the pain. He denies any fever, chills, nausea, vomiting, diarrhea, PND or orthopnea. The patient states that any weightbearing or range of motion of the left knee makes his pain worse. It is better with rest. The patient had x-rays of his left knee and hip area with no acute abnormalities. There is concern for a septic joint and synovial fluid was removed in the emergency department and results are currently pending. Cardiology has been consulted for cardiology clearance. However, the patient states that he sees a metals sales representative in [place], Dr. Montoya, and he has been told by him not to have any type of surgery or sedation. The patient adamantly states that he will not be having surgery despite any testing or recommendations. [facility] Disclaimer: The information contained in this section may have been updated after the patient was seen, as this information can be updated by other users. Medical History (Updated 06/06/23 @ 12:10 by Genevieve Ochoa APRN) Anginal pain CKD (chronic kidney disease) stage 3, GFR 30-59 ml/min Coronary artery disease Diabetes mellitus type II, controlled Gout Heart failure Heart failure with preserved ejection fraction Hyperlipidemia Hypertension Left knee pain Myocardial infarct Spondylosis Type 2 diabetes mellitus Surgical History (Updated 06/06/23 @ 12:09 by Genevieve Ochoa APRN) H/O heart artery stent History of heart bypass surgery History of open heart surgery Previous back surgery Social History (Updated 06/06/23 @ 04:20 by Morelia Suazo RN) Smoking Status: Former smoker years smoked: 40 how long ago did patient quit smokin years ago second hand exposure: No alcohol intake: never current occupational status: retired Travel in the last 8 weeks: None household members: spouse housing: house current occupation: [employer] current occupational exposures/hazards: No caffeine: Yes Review of Systems Review of Systems Review of systems:: pertinent systems reviewed and negative unless documented below Constitutional Constitutional: Reports system reviewed and no additional complaints, except as documented Eyes Eyes: Reports system reviewed and no additional complaints, except as documented ENT Ears, Nose, Mouth, and Throat: Reports system reviewed and no additional complaints, except as documented *Cardiovascular Cardiovascular: Reports system reviewed and no additional complaints, except as documented, Denies chest pain and Denies dyspnea *Respiratory Respiratory: Reports system reviewed and no additional complaints, except as documented and Denies dyspnea *Gastrointestinal Gastrointestinal: Reports system reviewed and no additional complaints, except as documented *Genitourinary Genitourinary: Reports system reviewed and no additional complaints, except as documented *Musculoskeletal Musculoskeletal: Reports system reviewed and
--- NOTE | 2023-06-06 12:07 | ECG_ITS ---
APPROVED REPORT Exam: Resting ECG HR:71 bpm ECG Measurements Heart Rate 71 AXES ID 230 P 84 QRSd 101 QRS -6 QT 379 T 28 QTc 401 Conclusion SINUS RHYTHM WITH FIRST DEGREE AV BLOCK LOW QRS VOLTAGE [QRS DEFLECTION < 0.5/1.0 mV IN LIMB/CHEST LEADS] INCOMPLETE RIGHT BUNDLE BRANCH BLOCK [90+ ms QRS DURATION, TERMINAL R IN V1/V2, 40+ ms S IN I/aVL/V4/V5/V6] ANTEROSEPTAL MYOCARDIAL INFARCTION , OF INDETERMINATE AGE [40+ ms Q WAVE IN V1-V4] ABNORMAL ECG UNCONFIRMED REPORT Electronically signed by : Crispin Mccartney MD 06/07/2023 21:02:25
--- NOTE | 2023-06-06 15:19 | PC.NURSE ---
PT IS RESTING IN BED WITH FAMILY AT BEDSIDE. ALERT AND ORIENTED X4. EATING AND DRINKING WELL. PT HAS MADE SEVERAL COMMENTS THIS SHIFT ABOUT WANTING TO GOING HOME. PT STATES HE IS NOT GOING TO HAVE ANY PROCEDURES HERE THAT INVOLVES BEING PUT TO SLEEP. PT GOT OOB WITH PHYSICAL THERAPY AND STOOD WITH A WALKER. PT STATES PAIN IS 10/10 WHEN HE TRIES TO BEAR WEIGHT ON HIS LLE. LUNG SOUNDS DIMINISHED. ABDOMEN SOFT/NON TENDER WITH ACTIVE BOWEL SOUNDS. WILL CONTINUE TO MONITOR.
[2023-06-06 16:30] LABS: POC Glucose,Bedside 274 (70-110)
[2023-06-06 20:46] LABS: POC Glucose,Bedside 278 (70-110)
[2023-06-07] VITALS: BP 110/62; PULSE 72; RESP 18; TEMP 36.9; O2SAT 95
--- NOTE | 2023-06-07 00:05 | PC.NURSE ---
CONTACTED Elgin ESTRADA.Sharon. RE COREG 25 MG PO ORDERED FOR 2099. PATIENT'S BP 105/54, HR 76. INSTRUCTED TO GO ON AND ADMINISTER COREG. BP AT MN 110/62 MANUAL CUFF, HR 72.
[2023-06-07 04:00] VITALS: BP 99/50; PULSE 70; RESP 16; TEMP 37.4; O2SAT 95; BMI 34.8
--- NOTE | 2023-06-07 05:11 | PC.NURSE ---
PATIENT STATES HE WILL BE LEAVING IN THE MORNING BECAUSE HE IS NOT HAVING ANY PROCEDURES OR BEING PUT TO SLEEP DUE TO HIS HEART CONDITION.
[2023-06-07 07:57] VITALS: BP 127/56; PULSE 70; RESP 18; TEMP 36.7; O2SAT 97
[2023-06-07 08:19] LABS: Basophils % 0.1 % (0.1-2.0); Eosinophils % 0.1 % (0.1-12.0); Hematocrit 30.3 % (42.0-52.0); Hemoglobin 9.8 g/dL (14.1-18.0); Lymphocytes # 0.6 K/mm3 (0.7-4.5); Lymphocytes % 9.8 % (10-50); Mean Corpuscular HGB Conc 32.4 g/dL (31.8-35.4); Mean Corpuscular Hemoglobin 29.7 pg (27.0-31.2); Mean Corpuscular Volume 91.7 fl (80-94); Mean Platelet Volume 8.3 fl (7.4-10.4); Monocytes # 0.2 K/mm3 (0.1-1.0); Monocytes % 2.8 % (1.7-9.3); Neutrophils # 5.7 K/mm3 (1.8-7.8); Neutrophils % 87.2 % (37.0-80.0); Platelet Count 237 K/mm3 (142-424); Red Blood Count 3.31 M/mm3 (4.60-6.20); Red Cell Distribution Width 16.1 % (11.5-17.5); White Blood Count 6.6 K/mm3 (4.8-10.8)
[2023-06-07 08:22] LABS: Chloride 101 mmol/L (98-107); Potassium 4.7 mmoL/L (3.5-5.1); Sodium 138 mmol/L (136-145)
[2023-06-07 08:23] LABS: MANUAL DIFFERENTIAL MANUAL DIFFERENTIAL (MANUAL DIFF)
[2023-06-07 08:24] LABS: Blood Urea Nitrogen 39 mg/dl (9-20); Creatinine Clearance Estimated 47 mL/min (50-200); Estimated Glomerular Filt Rate 30 ml/min (>60); GFR (African American) 36 ML/MIN (>60)
[2023-06-07 08:25] LABS: Alanine Aminotransferase 30 U/L (12-78); Albumin Level 3.2 g/dl (3.5-5.0); Alkaline Phosphatase 78 U/L (38-126); Anion Gap 14.7 mEq/L (5-15); Aspartate Amino Transferase 22 U/L (17-59); Bilirubin,Total 0.2 mg/dl (0.2-1.3); Calcium 9.1 mg/dl (8.4-10.2); Carbon Dioxide 27 mmol/L (22.0-30.0); Globulin 3.2 g/dL (1.3-3.2); Glucose 201 mg/dl (74-100); Total Protein,Serum 6.4 g/dl (6.3-8.2)
[2023-06-07 10:09] LABS: Lymphocytes % 13 % (10-50); Monocytes % 2 % (2-9); Neutrophils % 85 % (42-76); Platelet Estimate Normal; RBC Morphology Normal; Total Cells Counted 100
[2023-06-07 11:50] VITALS: BP 114/61; PULSE 65; RESP 18; TEMP 36.5; O2SAT 95
--- NOTE | 2023-06-07 12:13 | P.PN_ITS ---
Subjective *Date: 06/07/23 *Time: 12:13 Exam Data for Last 24 hours Vital signs and Labs for Last 24 Hours: Temp Pulse Resp BP Pulse Ox O2 Del Method O2 Flow Rate 97.7 F 65 18 114/61 95 Nasal Cannula 2 06/07/23 11:50 06/07/23 11:50 06/07/23 11:50 06/07/23 11:50 06/07/23 11:50 06/07/23 11:50 06/07/23 11:50 Laboratory Results - last 24 hr 06/06/23 15:38: POC Glucose 274 H 06/06/23 20:39: POC Glucose 278 H 06/07/23 06:58: WBC 6.6, RBC 3.31 L, Hgb 9.8 L, Hct 30.3 L, MCV 91.7, MCH 29.7, MCHC 32.4, RDW 16.1, Plt Count 237, MPV 8.3, Neut % (Auto) 87.2 H, Lymph % (Auto) 9.8 L, [place] % (Auto) 2.8, Eos % (Auto) 0.1, Baso % (Auto) 0.1, Neut # (Auto) 5.7, Lymph # (Auto) 0.6 L, [place] # (Auto) 0.2, Eos # (Auto) 0.0, Baso # (Auto) 0.0, Total Counted 100, Neutrophils % (Manual) 85 H, Lymphocytes % (Manual) 13, Monocytes % (Manual) 2, Platelet Estimate Normal, RBC Morphology Normal, Sodium 138, Potassium 4.7, Chloride 101, Carbon Dioxide 27, Anion Gap 14.7, BUN 39 H, Creatinine 2.20 H, Estimated Creat Clear 47, Estimated GFR 30 L, Est GFR ( Amer) 36 L, Glucose 201 H, Calcium 9.1, Total Bilirubin 0.2, AST 22 D, ALT 30 D, Alkaline Phosphatase 78, Total Protein 6.4, Albumin 3.2 L D, Globulin 3.2, Albumin/Globulin Ratio 1.0 L I & O for Last 24 hours: Intake & Output 06/04/23 06/05/23 06/06/23 06/07/23 23:59 23:59 23:59 23:59 Intake Total 1237 / 1477 1383 / 1383 Output Total 1350 / 1350 400 / 400 Balance -113 / 127 983 / 983 Weight 102.058 kg 103.674 kg 106.685 kg Microbiology Reports for the Last 24 Hours: Microbiology 06/06/23 02:50 Aspirate - Left Gram Stain - Final 06/06/23 02:50 Aspirate - Left Body Fluid Culture - Preliminary NO GROWTH AFTER 24 HOURS
[2023-06-07 14:19] LABS: Clarity,Fluid Hazy (Clear); Color,Fluid Straw (Yellow); Eosinophils,Fluid 1 % (Not Estab.); Lymphocytes,Fluid 2 % (Not Estab.); Macrophages,Fluid 48 % (Not Estab.); Nucleated cells, Syn. Fluid 3561 cells/uL (0-200); Polys,Fluid 49 % (Not Estab.); RBC,Fluid 4000 /uL (Not Estab.)
[2023-06-07 16:00] VITALS: BP 130/75; PULSE 59; RESP 17; TEMP 36.6; O2SAT 96
--- NOTE | 2023-06-07 17:38 | EXP.DC.SUM ---
General Admission date:: 06/06/23 HPI HPI HPI: Forwarded from Admission H&P: This is a 72-year-old male with extensive PMHx, including but not limited to HTN, HLD, COPD on 2L oxygen, diabetes, CAD status post stenting and 5 vessel CABG, CKD, Gout with chronic knee and foot pain presenting with left knee pain. Patient states that he was admitted to an outside hospital ([facility]) 05/31 through 06/02. Patient states that on the day of discharge from [facility], [place], he was having trouble bearing weight on his left knee secondary to pain. Since that time, pain is gotten so severe that he is unable to bear weight at all. Denies fevers or chills, nausea or vomiting, redness, outward tenderness, injury, or any other concerns. Bearing weight, ranging knee makes it worse, resting makes it better. Stated because of his CKD, make him difficult to stick to regular treatment. He presenting with chronic effusion in that knee and stated it has not gotten any worse. Patient admitted for further management. Hospital Course Hospital Course Hospital Course: The patient was empirically treated with Rocephin until synovial fluid studies became available. He received IV methylprednisolone throughout the hospital course. Pain in the left knee subsided and by the day of discharge he was able to ambulate. Synovial fluid from the left knee revealed 3561 nucleated cells and crystal analysis revealed monosodium urate crystals. He was discharged on a 7 day tapering course of prednisone for his gout flare and is to follow up with his primary care provider in one week. He also had ANNEMARIE on CKD for which IV fluids were given; creatinine level trended 2.6 -> 2.2 mg/dl. Exam Data for Last 24 hours Vital signs and Labs for Last 24 Hours: Temp Pulse Resp BP Pulse Ox O2 Del Method O2 Flow Rate 97.8 F 59 L 17 130/75 96 Nasal Cannula 2 06/07/23 16:00 06/07/23 16:00 06/07/23 16:00 06/07/23 16:00 06/07/23 16:00 06/07/23 16:48 06/07/23 16:48 Laboratory Results - last 24 hr 06/06/23 02:09: Fluid Clarity Hazy A, Fluid Lining Cell TNP, Synovial Color Straw, Synovial RBC 4000, Synovial Tot Nuc Cell 3561 H, Synovial Eosinophils% 1, Synovial Polynuclear % 49, Synovial Lymphocytes % 2, Synovial Macrophages % 48, Synovial Crystal ID Comment, Synovial Fluid Comment TNP 06/06/23 20:39: POC Glucose 278 H 06/07/23 06:58: WBC 6.6, RBC 3.31 L, Hgb 9.8 L, Hct 30.3 L, MCV 91.7, MCH 29.7, MCHC 32.4, RDW 16.1, Plt Count 237, MPV 8.3, Neut % (Auto) 87.2 H, Lymph % (Auto) 9.8 L, [place] % (Auto) 2.8, Eos % (Auto) 0.1, Baso % (Auto) 0.1, Neut # (Auto) 5.7, Lymph # (Auto) 0.6 L, [place] # (Auto) 0.2, Eos # (Auto) 0.0, Baso # (Auto) 0.0, Total Counted 100, Neutrophils % (Manual) 85 H, Lymphocytes % (Manual) 13, Monocytes % (Manual) 2, Platelet Estimate Normal, RBC Morphology Normal, Sodium 138, Potassium 4.7, Chloride 101, Carbon Dioxide 27, Anion Gap 14.7, BUN 39 H, Creatinine 2.20 H, Estimated Creat Clear 47, Estimated GFR 30 L, Est GFR ( Amer) 36 L, Glucose 201 H, Calcium 9.1, Total Bilirubin 0.2, AST 22 D, ALT 30 D, Alkaline Phosphatase 78, Total Protein 6.4, Albumin 3.2 L D, Globulin 3.2, Albumin/Globulin Ratio 1.0 L I & O for Last 24 hours: Intake & Output 06/04/23 06/05/23 06/06/23 06/07/23 23:59 23:59 23:59 23:59 Intake Total 1237 / 1477 1863 / 1863 Output Total 1350 / 1350 400 / 400 Balance -113 / 127 1463 / 1463 Weight 102.058 kg 103.674 kg 106.685 kg Microbiology Reports for the Last 24 Hours: Microbiology 06/06/23 02:50 Aspirate - Left Gram Stain - Final 06/06/23 02:50 Aspirate - Left Body Fluid Culture - Preliminary NO GROWTH AFTER 24 HOURS Constitutional Constitutional: no acute distress *Routine HEENT Exam Head: Present normocephalic Eye: Present EOMI and PERRL ENT: Present mucous membranes moist *Routine Neck Exam Neck: Present supple; Absent lymphadenopathy *Routine Respiratory Exam Respiratory: Present
[2023-06-07 17:53] LABS: POC Glucose,Bedside 211 (70-110)
[2023-06-07 17:53] LABS: POC Glucose,Bedside 313 (70-110)
[2023-06-07 17:53] LABS: POC Glucose,Bedside 264 (70-110)
--- NOTE | 2023-06-10 14:29 | CARE MANAGER ---
Contacted patient related to hospital discharge. He states his knee is not much better. He did follow up with PCP yesterday and is taking steroids. Denies questions or concerns at this time.MARIA ESTHER Johnson
== END 2023-06-07 18:10 | disposition home or self-care (01) ==
LOC: ER 06-06 00:12 → 2ND 06-06 02:31
PROVIDERS: Nurse Practitioner Family; Admitting Provider Internal Medicine; Emergency Provider Emergency Medicine; PCP Family Medicine; Visit Provider Internal Medicine
DX: M25.562 Pain in left knee (principal); M10.9 Gout, unspecified; N17.9 Acute kidney failure, unspecified; J44.9 Chronic obstructive pulmonary disease, unspecified; I25.10 Atherosclerotic heart disease of native coronary artery without angina pectoris; E11.69 Type 2 diabetes mellitus with other specified complication; I13.0 Hypertensive heart and chronic kidney disease with heart failure and stage 1 through stage 4 chronic kidney disease, or unspecified chronic kidney disease; E78.5 Hyperlipidemia, unspecified; I50.32 Chronic diastolic (congestive) heart failure; N18.32 Chronic kidney disease, stage 3b; E66.9 Obesity, unspecified; Z95.1 Presence of aortocoronary bypass graft; E11.22 Type 2 diabetes mellitus with diabetic chronic kidney disease; Z99.81 Dependence on supplemental oxygen
CPT/HCPCS: 20610; 36415; 73502; 73552; 73562; 80053; 82962; 83605; 84550; 85007; 85025; 85651; 87040; 87070; 87205; 89051; 93005; 93306; 97163; 97166; 99285; G0378; J0696

== ENCOUNTER → 2023-07-15 08:59 | Outpatient (CLI) | payer MEDICARE, BC, SELFPAY ==
[2023-07-15 09:07] LABS: Microscopic, Urine URINE MICROSCOPIC (MICROSCOPIC)
[2023-07-15 09:36] LABS: Hematocrit 31.4 % (42.0-52.0); Mean Corpuscular Hemoglobin 29.8 pg (27.0-31.2); Mean Corpuscular Volume 93.4 fl (80-94); Platelet Count 133 K/mm3 (142-424); Red Blood Count 3.36 M/mm3 (4.60-6.20); Red Cell Distribution Width 18.2 % (11.5-17.5); White Blood Count 3.4 K/mm3 (4.8-10.8)
[2023-07-15 09:56] LABS: Appearance,Urine CLEAR (Clear); Bilirubin,Urine Negative (Negative); Blood, Urine Negative (Negative); Color,Urine YELLOW (Yellow); Glucose,Urine (UA) 3+ (Negative); Ketones,Urine Negative (Negative); Leukocyte Esterase,Urine Negative (Negative); Nitrate,Urine Negative (Negative); Protein,Urine Negative (Negative); Specific Gravity, Urine 1.015 (1.005-1.030); Urobilinogen,Urine 0.2 EU/dl (0.2)
[2023-07-15 10:12] LABS: Bacteria,Urine Trace /lpf; Hyaline Casts,Urine Occasional #/lpf (0); Squamous Epithelial Cell,Urine Occasional #/hpf (0-5); WBC,Urine Occasional #/hpf (0-3)
[2023-07-15 10:27] LABS: Albumin Level 3.8 g/dl (3.5-5.0); Potassium 4.6 mmoL/L (3.5-5.1)
[2023-07-15 10:30] LABS: Blood Urea Nitrogen 29 mg/dl (9-20); Carbon Dioxide 29 mmol/L (22.0-30.0); Estimated Glomerular Filt Rate 27 ml/min (>60); GFR (African American) 32 ML/MIN (>60); Iron 76 ug/dL (49-181)
[2023-07-15 10:31] LABS: Calcium 8.7 mg/dl (8.4-10.2); Glucose 161 mg/dl (74-100); Phosphorous 4.5 mg/dl (2.5-4.5)
[2023-07-15 10:37] LABS: Creatinine,Urine Random 84 mg/dL (Not Estab.)
[2023-07-15 10:41] LABS: Total Iron Binding Capacity 421 ug/dL (261-462)
[2023-07-15 11:06] LABS: Ferritin 24.9 ng/ml (17.9-464)
[2023-07-15 11:25] LABS: Anion Gap 13.6 mEq/L (5-15); Chloride 103 mmol/L (98-107); Sodium 141 mmol/L (136-145)
== END ==
PROVIDERS: PCP Family Medicine; Visit Provider Internal Medicine Nephrology
DX: N18.32 Chronic kidney disease, stage 3b (principal)
CPT/HCPCS: 36415; 80069; 81001; 82306; 82570; 82728; 83540; 83550; 83970; 84155; 85014; 85018; 85048; 85049

== ENCOUNTER → 2023-07-24 14:54 | Outpatient (POV) | payer MEDICARE, BC, SELFPAY | PROVIDERS: Visit Provider Internal Medicine Nephrology | DX: Z00.00 Encounter for general adult medical examination without abnormal findings (principal) ==